=== PATIENT | male | born 1970 | race Caucasian/White ===

== ENCOUNTER 2019-02-28 14:46 | Emergency (ER) | payer BC, OTHER ==
--- NOTE | 2019-02-28 17:00 | RAD REPORT ---
EXAM DESCRIPTION: RAD - Chest Single View - 02/28/2019 3:51 pm CLINICAL HISTORY: Cough and congestion COMPARISON: February 2013 TECHNIQUE: AP portable chest image was obtained 1544 hours . FINDINGS: No peripheral mass or consolidation. Interstitial markings match comparison. Overall detai l is limited by portable technique and large body habitus. Heart and vasculature are normal. No measurable pleural effusion and no pneumothorax. No acute bony abnormality seen. No acute aortic findings suspected. IMPRESSION: No acute cardiopulmonary process. No significant change from comparison.
[2019-02-28 17:21] LABS: Absolute Lymphocytes (CBC) 1.6 K/uL (0.7-4.9); Hematocrit 44.2 % (39.6-49.0); RBC Red Blood Cell Count 4.63 M/uL (4.33-5.43)
--- NOTE | 2019-02-28 17:28 | RAD REPORT ---
EXAM DESCRIPTION: US - Extrem Venous W Compress Sarthak - 02/28/2019 4:45 pm CLINICAL HISTORY: Left greater than right leg pain and swelling COMPARISON: None. TECHNIQUE: Real-time sonographic evaluation of the bilateral lower extremity common femoral, superfi cial femoral, popliteal and posterior tibial veins was performed. FINDINGS: Normal compressibility, flow augmentation, phasic flow and spontaneous flow are identified in the left and right lower extremity common femoral, superficial femoral, popliteal and posterior t ibial veins. No intraluminal filling defects seen. Suspected small popliteal fossa cyst on the right. Left calf area of pain shows no hematoma, mass or focal abnormality. IMPRESSION: No DVT in either lower extremity.
[2019-02-28 17:31] LABS: Protime INR 1.05
[2019-02-28 17:50] LABS: ALT/SGPT 31 U/L (12-78); AST/SGOT 19 U/L (15-37); Albumin 3.9 g/dL (3.4-5.0); Alkaline Phosphatase 87 U/L (45-117); BUN Blood Urea Nitrogen 15 mg/dL (7-18); Bicarbonate 29 mmol/L (21-32); Bilirubin Direct 0.2 mg/dL (0-0.2); Bilirubin Total 0.8 mg/dL (0.2-1.0); Glucose Level 92 mg/dL (74-106); Magnesium 2.2 mg/dL (1.8-2.4); NT PRO-BNP 153 pg/mL (<125); Protein, Total 7.7 g/dL (6.4-8.2); Sodium Level 141 mmol/L (136-145); Troponin (Emerg Dept Use Only) < 0.02 ng/mL (0.0-0.045)
--- NOTE | 2019-02-28 17:58 | ER ---
Nurse's Notes [facility] Name: Devin Loyd IV Age: 48 yrs Sex: Male : 1970 Arrival Date: 02/28/2019 Time: 14:50 Bed 15 Private MD: None, None Diagnosis: Acute upper respiratory infection, unspecified;Essential (primary) hypertension Presentation: 02/28 15:02 Presenting complaint: Patient states: Productive cough with yellow sputum, and sinus hb congestion x 5 days. Denies fever. Transition of care: patient was not received from another setting of care. Onset of symptoms was February 24, 2019. Risk Assessment: Do you want to hurt yourself or someone else? Patient reports no desire to harm self or others. Care prior to arrival: None. 15:02 Method Of Arrival: Ambulatory hb 15:02 Acuity: FREDI 3 hb 17:27 Initial Sepsis Screen: Does the patient meet any 2 criteria? No. Patient's initial ph sepsis screen is negative. Does the patient have a suspected source of infection? No. Patient's initial sepsis screen is negative. Historical: - Allergies: 15:07 No Known Allergies; hb - Home Meds: 15:07 None [Active]; hb - PMHx: 15:07 Kidney stones; hb - PSHx: 15:07 Kidney stents; hb - Immunization history:: Adult Immunizations up to date. - Social history:: Smoking status: Patient uses tobacco products, chewing tobacco. - Ebola Screening: : No symptoms or risks identified at this time. Screenin:26 Abuse screen: Denies threats or abuse. Denies injuries from another. Nutritional ph screening: No deficits noted. Tuberculosis screening: No symptoms or risk factors identified. Fall Risk None identified. Assessment: 16:00 General: Pt in radiology for CXR and US. ph 17:00 General: Appears in no apparent distress. comfortable, obese, well groomed, Behavior is ph calm, cooperative, appropriate for age, Denies fever, chills. Pain: Denies pain. Neuro: Level of Consciousness is awake, alert, obeys commands, Oriented to person, place, time, situation. Cardiovascular: Denies chest pain, shortness of breath, Capillary refill < 3 seconds in bilateral fingers Patient's skin is warm and dry. Edema is 4+ to left midcalf, left ankle, right midcalf and right ankle. Respiratory: Reports shortness of breath when lying flat at night cough that is productive, Airway is patent Respiratory effort is even, unlabored, Respiratory pattern is regular, symmetrical. GI: No signs and/or symptoms were reported involving the gastrointestinal system. Patient currently denies abdominal pain, diarrhea, nausea, vomiting. Derm: Skin is intact, Skin is pink, warm \T\ dry. Musculoskeletal: Circulation, motion, and sensation intact. Range of motion: intact in all extremities. 18:30 Reassessment: Patient appears in no apparent distress at this time. Patient and/or ph family updated on plan of care and expected duration. Pain level reassessed. Patient is alert, oriented x 3, equal unlabored respirations, skin warm/dry/pink. Pt instructed to follow up w/ PCP, educated on use of BP log and d/c home w/ blood pressure medication. Vital Signs: 15:05 BP 179 / 102; Pulse 88; Resp 20; Temp 98.4; Pulse Ox 96% on R/A; Weight 185.97 kg; hb Height 6 ft. 4 in. (193.04 cm); Pain 2/10; 16:00 ph 17:27 BP 135 / 103; Pulse 74; Resp 20; Pulse Ox 89% on R/A; ph 18:32 BP 147 / 117; Pulse 73; Resp 18; Temp 98.0; Pulse Ox 95% on 3 lpm NC; ph 15:05 Body Mass Index 49.91 (185.97 kg, 193.04 cm) hb 16:00 unable to obtain vitals, pt in radiology ph 17:27 placed on 3L NC, improved to 94% ph ED Course: 14:50 Patient arrived in ED. mr 14:51 None, None is Private Physician. mr 15:05 Triage completed. hb 15:05 Arm band placed on. hb 15:13 Unique Che [facility]-C [facility]. snw 15:13 Mikhail Mohr MD is Attending Physician. snw 15:26 Miguelina Hines, MAHI is Primary Nurse. ph 15:51 XRAY Chest (1 view) In Process Unspecified. EDMS 16:09 US Extremity Venous W Compression Sarthak In Process Unspecified. EDMS 17:00 Inserted saline lock: 22 gauge in right antecubital area, using aseptic technique. ph Blood collected. 17:22 EKG done, by nanotechnology engineering technologist. reviewed by Unique MATA. sm3 17:27 Patient has correct armband on for positive identification. Bed in low position. Call ph light in reach. Side rails up X 1. Pulse ox on. NIBP on. Door closed. Noise minimized. Warm blanket given. Head of bed elevated. 18:20 IV discontinued, intact, bleeding controlled, No redness/swelling at site. Pressure em1 dressing applied. 18:31 No provider procedures requiring assistance completed. ph Administered Medications: 18:29 Drug: Metoprolol 25 mg Route: PO; ph 18:29 Follow up: Response: No adverse reaction; Medication administered at discharge. ph Outcome: 17:57 Discharge ordered by . snw 18:31 Discharged to home ambulatory, with significant other. ph 18:31 Condition: good 18:31 Discharge instructions given to patient, Instructed on discharge instructions, follow up and referral plans. medication usage, Demonstrated understanding of instructions, follow-up care, medications, Prescriptions given X 2. 18:33 Patient left the ED. ph Signatures: Dispatcher [employer] EDMS Unique Che, [employer] EMERGENCY MEDICAL SERVICES COORDINATOR-Csnw Mariah Watson, Bipin em1 Miguelina Hines, RN RN Aretha Munoz RN RN Ana Paula Cary sm3
--- NOTE | 2019-02-28 17:58 | EDPHYS ---
Physician Documentation [facility] Name: Devin Loyd IV Age: 48 yrs Sex: Male : 1970 Arrival Date: 02/28/2019 Time: 14:50 Bed 15 Private MD: None, None ED Physician Mikhail Mohr HPI: 02/28 15:56 This 48 yrs old Male presents to ER via Ambulatory with complaints of High snw Blood Pressure, Congestion. 15:56 The patient has elevated blood pressure and discovered this urgent care. Onset: The snw symptoms/episode began/occurred gradually. Associated signs and symptoms: Pertinent positives: congestion since Wednesday, went to and BP was 200/130's, sent to ED for eval. Severity of symptoms: At its worst the blood pressure was 200 mm Hg. It is unknown whether or not the patient has had similar symptoms in the past. The patient has not recently seen a physician. Historical: - Allergies: 15:07 No Known Allergies; hb - Home Meds: 15:07 None [Active]; hb - PMHx: 15:07 Kidney stones; hb - PSHx: 15:07 Kidney stents; hb - Immunization history:: Adult Immunizations up to date. - Social history:: Smoking status: Patient uses tobacco products, chewing tobacco. - Ebola Screening: : No symptoms or risks identified at this time. ROS: 15:56 Constitutional: Negative for fever, chills, and weight loss, Eyes: Negative for injury, snw pain, redness, and discharge. 15:56 Neck: Negative for injury, pain, and swelling, Cardiovascular: Negative for chest pain, palpitations, and edema, Respiratory: Negative for shortness of breath, cough, wheezing, and pleuritic chest pain, Abdomen/GI: Negative for abdominal pain, nausea, vomiting, diarrhea, and constipation, Back: Negative for injury and pain, : Negative for injury, bleeding, discharge, and swelling, MS/Extremity: Negative for injury and deformity, Skin: Negative for injury, rash, and discoloration, Neuro: Negative for headache, weakness, numbness, tingling, and seizure. 15:56 ENT: Positive for sinus congestion. Exam: 15:41 Eyes: Pupils equal round and reactive to light, extra-ocular motions intact. Lids and snw lashes normal. Conjunctiva and sclera are non-icteric and not injected. Cornea within normal limits. Periorbital areas with no swelling, redness, or edema. 15:41 Neck: Trachea midline, no thyromegaly or masses palpated, and no cervical lymphadenopathy. Supple, full range of motion without nuchal rigidity, or vertebral point tenderness. No Meningismus. Chest/axilla: Normal chest wall appearance and motion. Nontender with no deformity. No lesions are appreciated. Cardiovascular: Regular rate and rhythm with a normal S1 and S2. No gallops, murmurs, or rubs. Normal PMI, no JVD. No pulse deficits. 15:41 Abdomen/GI: Soft, non-tender, with normal bowel sounds. No distension or tympany. No guarding or rebound. No evidence of tenderness throughout. Back: No spinal tenderness. No costovertebral tenderness. Full range of motion. 15:41 Constitutional: The patient appears alert, awake, obese. 15:41 Head/face: mild diaphoresis to forehead. 15:41 ENT: TM's: are normal, Nose: Nasal mucosa: edematous, Mouth: is normal, Voice: is normal. 15:41 Respiratory: the patient does not display signs of respiratory distress, Respirations: shallow respirations, Breath sounds: decreased breath sounds. 15:41 Musculoskeletal/extremity: lower extremity edema, left lower extremity with lymphedema. Sensation intact. 15:41 Skin: Appearance: Color: cyanotic, nailbeds. 15:41 Neuro: Orientation: is normal, Mentation: is normal, Motor: is normal. Vital Signs: 15:05 BP 179 / 102; Pulse 88; Resp 20; Temp 98.4; Pulse Ox 96% on R/A; Weight 185.97 kg; hb Height 6 ft. 4 in. (193.04 cm); Pain 2/10; 16:00 ph 17:27 BP 135 / 103; Pulse 74; Resp 20; Pulse Ox 89% on R/A; ph 18:32 BP 147 / 117; Pulse 73; Resp 18; Temp 98.0; Pulse Ox 95% on 3 lpm NC; ph 15:05 Body Mass Index 49.91 (185.97 kg, 193.04 cm) hb 16:00 unable to obtain vitals, pt in radiology ph 17:27 placed on 3L NC, improved to 94% ph MDM: 15:13 Patient medically screened. snw 18:00 Data reviewed: vital signs, nurses notes. Data interpreted: Pulse oximetry: on room air snw is 90 %. Interpretation: acceptable. Counseling: I had a detailed discussion with the patient and/or guardian regarding: the historical points, exam findings, and any diagnostic results supporting the discharge/admit diagnosis, the presence of at least one elevated blood pressure reading (>120/80) during this emergency department visit, lab results, radiology results, the need for outpatient follow up. Response to treatment: There is no appreciated change of the patient's symptoms at this time. Special discussion: Based on the history and exam findings, there is no indication for further emergent testing or inpatient evaluation. I discussed with the patient/guardian the need to see the primary care provider for further evaluation of the symptoms. I discussed with the patient/guardian the need to see the manager ambulatory for further evaluation of the symptoms. 02/28 15:31 Order name: Basic Metabolic Panel; Complete Time: 17:55 snw 02/28 15:31 Order name: CBC with Diff; Complete Time: 17:27 snw 02/28 15:31 Order name: LFT's; Complete Time: 17:55 snw 02/28 15:31 Order name: Magnesium; Complete Time: 17:55 snw 02/28 15:31 Order name: NT PRO-BNP; Complete Time: 17:55 snw 02/28 15:31 Order name: PT-INR; Complete Time: 17:55 snw 02/28 15:31 Order name: Troponin (emerg Dept Use Only); Complete Time: 17:55 snw 02/28 15:31 Order name: XRAY Chest (1 view); Complete Time: 17:24 snw 02/28 15:31 Order name: EKG; Complete Time: 15:32 snw 02/28 15:31 Order name: Cardiac monitoring; Complete Time: 19:25 snw 02/28 15:31 Order name: EKG - Nurse/Tech; Complete Time: 19:25 snw 02/28 15:31 Order name: US Extremity Venous W Compression Sarthak; Complete Time: 17:44 snw 02/28 15:31 Order name: TSH; Complete Time: 17:55 snw 02/28 15:31 Order name: IV Saline Lock; Complete Time: 19:25 snw 02/28 15:31 Order name: Labs collected and sent; Complete Time: 19:25 snw 02/28 15:31 Order name: O2 Per Protocol; Complete Time: 19:25 snw 02/28 15:31 Order name: O2 Sat Monitoring; Complete Time: 19:25 snw Administered Medications: 18:29 Drug: Metoprolol 25 mg Route: PO; ph 18:29 Follow up: Response: No adverse reaction; Medication administered at discharge. ph Disposition: 21:25 Co-signature as Attending Physician, Mikhail Mohr MD. rn Disposition: 02/28/19 17:57 Discharged to Home. Impression: Acute upper respiratory infection, unspecified, Essential (primary) hypertension. - Condition is Stable. - Discharge Instructions: Hypertension, Cool Mist Vaporizer, Sleep Studies, Lymphedema, How to Take Your Blood Pressure, [id number], DASH Eating Plan, Form - Blood Pressure Record Sheet. - Prescriptions for Metoprolol Tartrate 25 mg Oral Tablet - take 1 tablet by ORAL route 2 times per day with a meal; 20 tablet. - Work release form, Medication Reconciliation Form, Thank You Letter, Antibiotic Education, Prescription Opioid Use form. - Follow up: Emergency Department; When: As needed; Reason: Worsening of condition. Follow up: Private Physician; When: 1 week; Reason: Recheck today's complaints, Continuance of care, Re-evaluation by your physician. Signatures: Dispatcher [employer] EDMS Unique Che, MANAGER ADVANCED-C MANAGER ADVANCED-Csnw Mikhail Mohr MD MD rn Hall, Patricia, RN RN Aretha Cardona RN RN Corrections: (The following items were deleted from the chart) 18:33 17:57 02/28/2019 17:57 Discharged to Home. Impression: Acute upper respiratory ph infection, unspecified; Essential (primary) hypertension. Condition is Stable. Forms are Medication Reconciliation Form, Thank You Letter, Antibiotic Education, Prescription Opioid Use. Follow up: Emergency Department; When: As needed; Reason: Worsening of condition. Follow up: Private Physician; When: 1 week; Reason: Recheck today's complaints, Continuance of care, Re-evaluation by your physician. snw
[2019-02-28] MEDS ORDERED: METOPROLOL TAR 25 MG TAB ONE (18:21)
[2019-02-28 18:59] VITALS: BP 147/117; TEMP 98; O2SAT 95
--- NOTE | 2019-03-01 07:24 | EKG ---
Test Date: 2019-02-28 Test Time: 17:00:52 Crew Director: ANTHONY MEASUREMENT RESULTS: Intervals: Rate: 80 MT: 166 QRSD: 104 QT: 390 QTc: 449 [place]: P: 22 MT: 166 QRS: -17 T: 38 INTERPRETIVE STATEMENTS: Sinus rhythm with premature supraventricular complexes Otherwise normal ECG No previous ECG available for comparison Electronically Signed On 03-01-19 07:23:36 ONLINE JOURNALIST by Shahid Garcia
== END 2019-02-28 18:33 | disposition home or self-care (01) ==
LOC: ER 14:46
DX: I10 Essential (primary) hypertension (principal); J06.9 Acute upper respiratory infection, unspecified; Z72.0 Tobacco use
CPT/HCPCS: 36415; 71045; 80048; 80076; 83735; 83880; 84443; 84484; 85025; 85610; 93005; 93970; 99284

== ENCOUNTER 2023-07-10 07:17 | Inpatient (IN) | payer BC ==
--- OUTSIDE RECORDS SUMMARY | 2023-07-10 07:23 | XMS REPORT | Continuity of Care Document ---
Author Name Unknown Address [address] [facility] [address] [place] [address] [facility] thconnect Address [address] [facility] [address] [place] [address] Care Team Providers Care Senior Sales Manager Name Role Phone JAYLENE SEGURA Primary Care Physician Mami JAYLENE Earl Attending Clinician Jaylene Espinoza MD Attending Clinician + [phone] [facility] Sleep Lab Attending Clinician UnavailZoraida Mccabe MD Attending Clinician ZORAIDA NIXON Attending Clinician Unavaila ZORAIDA Carcamo Attending Clinician Unavaila glory Doctor Unassigned, [place] Attending Clinician U navailable BIRDIE GOODMAN Attending Clinician Unavailable Birdie Goodman DO Attending Clinician [phone] Renee Rivera Attending Clinician [phone] RENEE MICHELLE Attending Clinician Unavailable Rory CHAUDHARI, [facility] Attending Clinician + [phone] Kaelyn VELAZQUEZ Attending Clinician Unavailable Kaelyn Nolasco Attending Clinician [phone] Bucky Raymond PTA Attending Clinician Unavail able Cesar Luo MD Attending Clinician [phone] Rola Kitchen PT Attending Clinician Un available CESAR LUO Attending Clinician Unavailabl e Lab, Ang - Db Attending Clinician Unavailable NESSA FELTON Attending Clinician Unavailmanpreet Brown RN, Balta Moss Attending Clinician Unavail able Katlin Rosenthal MD Attending Clinician MANNY GONZALEZ Attending Clinician UnavailManny Cruz Attending Clinician [phone] MARIA SANTIAGO Attending Clinician Unavailable BIRDIE GOODMAN Admitting Clinician Unavailable Kaelyn VELAZQUEZ Admitting Clinician Unavailable Katlin Rosenthal MD Admitting Clinician [phone] MANNY GONZALEZ Admitting Clinician UnavailMARIA Bates Admitting Clinician Unavailable Payers Payer Name Policy Type Policy Number Effective Date Expirati on Date Source [facility] [id number] 2017 00:00:00 Problems Condition Name Condition Details Condition Category Status Onset Date Resolution Date Last Treatment Date Treating Clinician Comments Source Snoring Snoring Disease Active 08-04 00:00: 00 [facility] Class 3 drug-induc ed obesity with serious comorbidit y and body mass index (BMI) of 50.0 to 59.9 in adult Class 3 drug-induc ed obesity with serious comorbidit y and body mass index (BMI) of 50.0 to 59.9 in adult Disease Active 08-04 00:00: 00 [facility] Acute cough Acute cough Disease Active 08-04 00:00: 00 [facility] Viral infection Viral infection Disease Active 08-04 00:00: 00 [facility] Urinary incontinen ce, nocturnal enuresis Urinary incontinen ce, nocturnal enuresis Disease Active 08-04 00:00: 00 [facility] PVC (premature ventricula r contractio n) PVC (premature ventricula r contractio n) Disease Active 11-12 00:00: 00 [facility] PVC (premature ventricula r contractio n) PVC (premature ventricula r contractio n) Disease Active 11-12 00:00: 00 [facility] Hypokalemi a Hypokalemi a Disease Active 8-03 00:00: 00 [facility] Cellulitis of left leg Cellulitis of left leg Disease Active 8-02 00:00: 00 [facility] Chronic diastolic congestive heart failure Chronic diastolic congestive heart failure Disease Active 10-09 00:00: 00 [facility] Cellulitis Cellulitis Disease Active 10-05 00:00: 00 [facility] Essential hypertensi on Essential hypertensi on Disease Active 10-05 00:00: 00 [facility] Dyslipidem ia Dyslipidem ia Disease Active 10-05 00:00: 00 [facility] Stage 3 chronic kidney disease Stage 3 chronic kidney disease Disease Active 10-05 00:00: 00 [facility] History of DVT (deep vein thrombosis ) History of DVT (deep vein thrombosis ) Disease Active 10-05 00:00: 00 [facility] Elevated troponin I level Elevated troponin I level Disease Active 10-05 00:00: 00 [facility] DVT (deep venous thrombosis ) DVT (deep venous thrombosis ) Disease Active 2018-04 00:00: 00 [facility] TIERRA (acute kidney injury) TIERRA (acute kidney injury) Disease Active 2018-04 00:00: 00 [facility] Cellulitis of left lower extremity Cellulitis of left lower extremity Disease Active 2018-04 00:00: 00 [facility] Pneumonia Pneumonia Disease Active 2018-04 00:00: 00 [facility] Morbid obesity with body mass index of 50 or higher Morbid obesity with body mass index of 50 or higher Disease Active 2018-04 00:00: 00 [facility] Allergies, Adverse Reactions, Alerts Allergy Name Allergy Type Status Severity Reaction(s) Onset Date Inactive Date Treating Clinician Comments Source NO KNOWN ALLERGIE S Drug Class Active [facility] Social History Social Habit Start Date Stop Date Quantity Comments Source Gender identity [facility] of Social function 2023-05-18 00:00:00 2023-05-18 00:00:00 [facility] Alcohol intake 2023-05-04 00:00:00 2023-05-04 00:00:00 Ex-drinker (finding) [facility] Exposure to SARS-CoV-2 (event) 2022-08-08 00:00:00 2022-08-18 09:27:00 Not sure [facility] Cigarettes smoked current (pack per day) - Reported 2022-08-04 00:00:00 2022-08-04 00:00:00 [facility] Cigarette pack-years 2022-08-04 00:00:00 2022-08-04 00:00:00 [facility] Tobacco use and exposure 2022-08-04 00:00:00 2022-08-04 00:00:00 Former smokeless tobacco user [facility] History SDOH Food Worry 2019-03-09 00:00:00 2019-03-09 00:00:00 1 [facility] History SDOH Food Scarcity 2019-03-09 00:00:00 2019-03-09 00:00:00 1 [facility] History SDOH Transport Med 2019-03-09 00:00:00 2019-03-09 00:00:00 2 [facility] History SDOH Transport Non-Med 2019-03-09 00:00:00 2019-03-09 00:00:00 2 [facility] History of tobacco use 2019-03-06 00:00:00 Chews Tobacco [facility] Sex Assigned At 1970 00:00:00 1970 00:00:00 [facility] Smoking Status Start Date Stop Date Source Ex-smoker 2022-08-04 00:00:00 2022-08-04 [facility] Ordered Medication Name Filled Medication Name Start Date Stop Date Current Medication? Ordering Clinician Indication Dosage Frequency Signature (SIG) Comments Components Source ELIQUIS 5 mg tablet - 00:00: 00 Yes [id number] TAKE 1 TABLET BY MOUTH IN THE MORNING AND EVENING TO PREVENT RECURRENCE OF A CLOT IN A DEEP VEIN [facility] ELIQUIS 5 mg tablet 4-0 2-21 00:00: 00 Yes [id number] TAKE 1 TABLET BY MOUTH IN THE MORNING AND EVENING TO PREVENT RECURRENCE OF A CLOT IN A DEEP VEIN [facility] ELIQUIS 5 mg tablet 4-0 1-15 00:00: 00 Yes [id number] [id number] TAKE 1 TABLET BY MOUTH IN THE MORNING AND EVENING TO PREVENT RECURRENCE OF A CLOT IN A DEEP VEIN [facility] ELIQUIS 5 mg tablet 4-0 1-15 00:00: 00 Yes [id number] [id number] TAKE 1 TABLET BY MOUTH IN THE MORNING AND EVENING TO PREVENT RECURRENCE OF A CLOT IN A DEEP VEIN [facility] ELIQUIS 5 mg tablet 4-0 1-15 00:00: 00 Yes [id number] [id number] TAKE 1 TABLET BY MOUTH IN THE MORNING AND EVENING TO PREVENT RECURRENCE OF A CLOT IN A DEEP VEIN [facility] ELIQUIS 5 mg tablet 4-0 1-15 00:00: 00 Yes [id number] 9108 TAKE 1 TABLET BY MOUTH IN THE MORNING AND EVENING TO PREVENT RECURRENCE OF A CLOT IN A DEEP VEIN [facility] ELIQUIS 5 mg tablet 4-0 1-15 00:00: 00 Yes [id number] 9108 TAKE 1 TABLET BY MOUTH IN THE MORNING AND EVENING TO PREVENT RECURRENCE OF A CLOT IN A DEEP VEIN [facility] ELIQUIS 5 mg tablet 4-0 1-15 00:00: 00 06-02 00:00 :00 No [id number] 9108 TAKE 1 TABLET BY MOUTH IN THE MORNING AND EVENING TO PREVENT RECURRENCE OF A CLOT IN A DEEP VEIN [facility] CARVEDILOL 25 mg tablet 4-0 1-02 00:00: 00 Yes [id number] TAKE 1 TABLET BY MOUTH IN THE MORNING AND IN THE EVENING WITH MEALS [facility] CARVEDILOL 25 mg tablet 2024-0 1-02 00:00: 00 Yes [id number] TAKE 1 TABLET BY MOUTH IN THE MORNING AND IN THE EVENING WITH MEALS [facility] CARVEDILOL 25 mg tablet 2024-0 1-02 00:00: 00 Yes [id number] TAKE 1 TABLET BY MOUTH IN THE MORNING AND IN THE EVENING WITH MEALS [facility] CARVEDILOL 25 mg tablet 4-0 04-13 00:00: 00 Yes [id number] TAKE 1 TABLET BY MOUTH IN THE MORNING AND IN THE EVENING WITH MEALS [facility] CARVEDILOL 25 mg tablet 4-0 04-13 00:00: 00 Yes [id number] TAKE 1 TABLET BY MOUTH IN THE MORNING AND IN THE EVENING WITH MEALS [facility] CARVEDILOL 25 mg tablet 4-0 04-13 00:00: 00 Yes [id number] TAKE 1 TABLET BY MOUTH IN THE MORNING AND IN THE EVENING WITH MEALS [facility] CARVEDILOL 25 mg tablet 2023-0 04-13 00:00: 00 Yes [id number] TAKE 1 TABLET BY MOUTH IN THE MORNING AND IN THE EVENING WITH MEALS [facility] CARVEDILOL 25 mg tablet 2023-0 04-13 00:00: 00 Yes [id number] TAKE 1 TABLET BY MOUTH IN THE MORNING AND IN THE EVENING WITH MEALS [facility] CARVEDILOL 25 mg tablet 2023-0 04-13 00:00: 00 Yes [id number] TAKE 1 TABLET BY MOUTH IN THE MORNING AND IN THE EVENING WITH MEALS [facility] CARVEDILOL 25 mg tablet 2023-0 04-13 00:00: 00 Yes [id number] TAKE 1 TABLET BY MOUTH IN THE MORNING AND IN THE EVENING WITH MEALS [facility] CARVEDILOL 25 mg tablet 2023-0 04-13 00:00: 00 Yes [id number] TAKE 1 TABLET BY MOUTH IN THE MORNING AND IN THE EVENING WITH MEALS [facility] ELIQUIS 5 mg tablet 2022-04 00:00: 00 Yes [id number] 9108 TAKE 1 TABLET BY MOUTH IN THE MORNING AND EVENING TO PREVENT RECURRENCE OF A CLOT IN A DEEP VEIN [facility] ELIQUIS 5 mg tablet 2022-04 00:00: 00 Yes [id number] 9108 TAKE 1 TABLET BY MOUTH IN THE MORNING AND EVENING TO PREVENT RECURRENCE OF A CLOT IN A DEEP VEIN [facility] ELIQUIS 5 mg tablet 2022-04 00:00: 00 04-26 00:00 :00 No [id number] 9108 TAKE 1 TABLET BY MOUTH IN THE MORNING AND EVENING TO PREVENT RECURRENCE OF A CLOT IN A DEEP VEIN [facility] ELIQUIS 5 mg tablet 2022-04 00:00: 00 Yes [id number] 9108 TAKE 1 TABLET BY MOUTH IN THE MORNING AND EVENING TO PREVENT RECURRENCE OF A CLOT IN A DEEP VEIN [facility] ELIQUIS 5 mg tablet 2022-04 00:00: 00 03-16 00:00 :00 No [id number] 9108 TAKE 1 TABLET BY MOUTH IN THE MORNING AND EVENING TO PREVENT RECURRENCE OF A CLOT IN A DEEP VEIN [facility] cefTRIAXone (ROCEPHIN) 350 mg/mL in Lidocaine 1 % injection 500 mg 01-04 03:30: 00 01-04 02:43 :00 No 500mg 500 mg, Intramuscu lar, ONCE, 1 dose, On 01/03/23 at 2230, KACY
Re ason for Anti-Infec tive: Empiric Therapy for Suspected Infection< br>Empiric Therapy Site: Skin / Soft tissue
Duration of therapy: 72 hours [facility] cephALEXin (KEFLEX) 500 mg capsule 01-03 00:00: 00 01-11 04:59 :00 No [id number] 500mg Take 1 capsule by mouth in the morning and 1 capsule at noon and 1 capsule in the evening. Do all this for 7 days. [facility] sulfamethox azole-trime thoprim 800-160 mg per tablet 01-03 00:00: 00 01-11 04:59 :00 No [id number] 1{tbl} Take 1 tablet by mouth in the morning and 1 tablet in the evening. Do all this for 7 days. [facility] ELIQUIS 5 mg tablet 12-22 00:00: 00 Yes [id number] TAKE 1 TABLET BY MOUTH IN THE MORNING AND EVENING TO PREVENT RECURRENCE OF A CLOT IN A DEEP VEIN [facility] ELIQUIS 5 mg tablet 12-22 00:00: 00 Yes [id number] 9108 TAKE 1 TABLET BY MOUTH IN THE MORNING AND EVENING TO PREVENT RECURRENCE OF A CLOT IN A DEEP VEIN [facility] ELIQUIS 5 mg tablet 2022-0 9-12 00:00: 00 02-03 00:00 :00 No [id number] 9108 TAKE 1 TABLET BY MOUTH IN THE MORNING AND EVENING TO PREVENT RECURRENCE OF A CLOT IN A DEEP VEIN [facility] ELIQUIS 5 mg tablet 2022-0 8- 00:00: 00 Yes [id number] 9108 TAKE 1 TABLET BY MOUTH IN THE MORNING AND EVENING TO PREVENT RECURRENCE OF A CLOT IN A DEEP VEIN [facility] ELIQUIS 5 mg tablet 2022-0 8- 00:00: 00 12-22 00:00 :00 No [id number] 9108 TAKE 1 TABLET BY MOUTH IN THE MORNING AND EVENING TO PREVENT RECURRENCE OF A CLOT IN A DEEP VEIN [facility] CARVEDILOL 25 mg tablet 2022-0 - 00:00: 00 Yes TAKE 1 TABLET BY MOUTH IN THE MORNING AND IN THE EVENING WITH MEALS [facility] CARVEDILOL 25 mg tablet 2022-0 7-06 00:00: 00 Yes TAKE 1 TABLET BY MOUTH IN THE MORNING AND IN THE EVENING WITH MEALS [facility] CARVEDILOL 25 mg tablet 2022-0 10-15 00:00: 00 Yes TAKE 1 TABLET BY MOUTH IN THE MORNING AND IN THE EVENING WITH MEALS [facility] CARVEDILOL 25 mg tablet 2022-0 - 00:00: 00 Yes TAKE 1 TABLET BY MOUTH IN THE MORNING AND IN THE EVENING WITH MEALS [facility] CARVEDILOL 25 mg tablet 2022-0 7-06 00:00: 00 Yes TAKE 1 TABLET BY MOUTH IN THE MORNING AND IN THE EVENING WITH MEALS [facility] CARVEDILOL 25 mg tablet 2022-0 7-06 00:00: 00 Yes TAKE 1 TABLET BY MOUTH IN THE MORNING AND IN THE EVENING WITH MEALS [facility] CARVEDILOL 25 mg tablet 2022-0 7-06 00:00: 00 04-13 00:00 :00 No TAKE 1 TABLET BY MOUTH IN THE MORNING AND IN THE EVENING WITH MEALS [facility] apixaban (ELIQUIS) 5 mg tablet 2022-0 05 00:00: 00 Yes [id number] 5mg Take 1 tablet by mouth in the morning and 1 tablet in the evening. Indication s: treatment to prevent recurrence of a clot in a deep vein [facility] apixaban (ELIQUIS) 5 mg tablet 2022-0 7 00:00: 00 Yes [id number] 5mg Take 1 tablet by mouth in the morning and 1 tablet in the evening. Indication s: treatment to prevent recurrence of a clot in a deep vein [facility] apixaban (ELIQUIS) 5 mg tablet 2022-0 10-14 00:00: 00 11-18 00:00 :00 No [id number] 5mg Take 1 tablet by mouth in the morning and 1 tablet in the evening. Indication s: treatment to prevent recurrence of a clot in a deep vein [facility] LORATADINE 10 mg tablet 2022-0 09-17 00:00: 00 Yes [id number] TAKE 1 TABLET BY MOUTH EVERY DAY IN THE MORNING [facility] LORATADINE 10 mg tablet 2022-0 09-17 00:00: 00 Yes [id number] TAKE 1 TABLET BY MOUTH EVERY DAY IN THE MORNING [facility] LORATADINE 10 mg tablet 3-0 09-17 00:00: 00 Yes [id number] TAKE 1 TABLET BY MOUTH EVERY DAY IN THE MORNING [facility] LORATADINE 10 mg tablet 3-0 09-17 00:00: 00 Yes [id number] TAKE 1 TABLET BY MOUTH EVERY DAY IN THE MORNING [facility] LORATADINE 10 mg tablet 3-0 09-17 00:00: 00 Yes [id number] TAKE 1 TABLET BY MOUTH EVERY DAY IN THE MORNING [facility] LORATADINE 10 mg tablet 3-0 09-17 00:00: 00 Yes [id number] TAKE 1 TABLET BY MOUTH EVERY DAY IN THE MORNING [facility] LORATADINE 10 mg tablet 2022-0 6- 00:00: 00 Yes [id number] TAKE 1 TABLET BY MOUTH EVERY DAY IN THE MORNING [facility] LORATADINE 10 mg tablet 3-0 6- 00:00: 00 Yes [id number] TAKE 1 TABLET BY MOUTH EVERY DAY IN THE MORNING [facility] LORATADINE 10 mg tablet 2022-0 09-17 00:00: 00 Yes [id number] TAKE 1 TABLET BY MOUTH EVERY DAY IN THE MORNING [facility] LORATADINE 10 mg tablet 2022-0 09-17 00:00: 00 Yes [id number] TAKE 1 TABLET BY MOUTH EVERY DAY IN THE MORNING [facility] LORATADINE 10 mg tablet 2022-0 09-17 00:00: 00 Yes [id number] TAKE 1 TABLET BY MOUTH EVERY DAY IN THE MORNING [facility] LORATADINE 10 mg tablet 2022-0 09-17 00:00: 00 Yes [id number] TAKE 1 TABLET BY MOUTH EVERY DAY IN THE MORNING [facility] LORATADINE 10 mg tablet 2022-0 09-17 00:00: 00 Yes [id number] TAKE 1 TABLET BY MOUTH EVERY DAY IN THE MORNING [facility] LORATADINE 10 mg tablet 2022-0 09-17 00:00: 00 Yes [id number] TAKE 1 TABLET BY MOUTH EVERY DAY IN THE MORNING [facility] LORATADINE 10 mg tablet 2022-0 09-17 00:00: 00 Yes [id number] TAKE 1 TABLET BY MOUTH EVERY DAY IN THE MORNING [facility] LORATADINE 10 mg tablet 2022-0 09-17 00:00: 00 Yes [id number] TAKE 1 TABLET BY MOUTH EVERY DAY IN THE MORNING [facility] LORATADINE 10 mg tablet 2022-0 09-17 00:00: 00 Yes [id number] TAKE 1 TABLET BY MOUTH EVERY DAY IN THE MORNING [facility] LORATADINE 10 mg tablet 2022-0 09-17 00:00: 00 Yes [id number] TAKE 1 TABLET BY MOUTH EVERY DAY IN THE MORNING [facility] LORATADINE 10 mg tablet 2022-0 09-17 00:00: 00 Yes [id number] TAKE 1 TABLET BY MOUTH EVERY DAY IN THE MORNING [facility] LORATADINE 10 mg tablet 2022-0 09-06 00:00: 00 Yes [id number] TAKE 1 TABLET BY MOUTH EVERY DAY IN THE MORNING [facility] LORATADINE 10 mg tablet 2022-0 09-06 00:00: 00 09-17 00:00 :00 No [id number] TAKE 1 TABLET BY MOUTH EVERY DAY IN THE MORNING [facility] amoxicillin 875 mg tablet 2022-0 08-18 00:00: 00 Yes [id number] 875mg Take 1 tablet by mouth in the morning and 1 tablet in the evening. [facility] amoxicillin 875 mg tablet 2022-0 08-18 00:00: 00 Yes [id number] 875mg Take 1 tablet by mouth in the morning and 1 tablet in the evening. [facility] amoxicillin 875 mg tablet 2022-0 08-18 00:00: 00 Yes [id number] 875mg Take 1 tablet by mouth in the morning and 1 tablet in the evening. [facility] amoxicillin 875 mg tablet 2022-0 08-18 00:00: 00 Yes [id number] 875mg Take 1 tablet by mouth in the morning and 1 tablet in the evening. [facility] amoxicillin 875 mg tablet 2022-0 08-18 00:00: 00 Yes [id number] 875mg Take 1 tablet by mouth in the morning and 1 tablet in the evening. [facility] amoxicillin 875 mg tablet 2022-0 08-18 00:00: 00 Yes [id number] 875mg Take 1 tablet by mouth in the morning and 1 tablet in the evening. [facility] amoxicillin 875 mg tablet 2022-0 08-18 00:00: 00 Yes [id number] 875mg Take 1 tablet by mouth in the morning and 1 tablet in the evening. [facility] amoxicillin 875 mg tablet 2022-0 08-18 00:00: 00 Yes [id number] 875mg Take 1 tablet by mouth in the morning and 1 tablet in the evening. [facility] amoxicillin 875 mg tablet 2022-0 08-18 00:00: 00 Yes [id number] 875mg Take 1 tablet by mouth in the morning and 1 tablet in the evening. [facility] amoxicillin 875 mg tablet 3-0 - 00:00: 00 Yes [id number] 875mg Take 1 tablet by mouth in the morning and 1 tablet in the evening. [facility] amoxicillin 875 mg tablet 2022-0 08-18 00:00: 00 Yes [id number] 875mg Take 1 tablet by mouth in the morning and 1 tablet in the evening. [facility] amoxicillin 875 mg tablet 2022-0 08-18 00:00: 00 Yes [id number] 875mg Take 1 tablet by mouth in the morning and 1 tablet in the evening. [facility] amoxicillin 875 mg tablet 2022-0 08-18 00:00: 00 Yes [id number] 875mg Take 1 tablet by mouth in the morning and 1 tablet in the evening. [facility] amoxicillin 875 mg tablet 2022-0 08-18 00:00: 00 Yes [id number] 875mg Take 1 tablet by mouth in the morning and 1 tablet in the evening. [facility] amoxicillin 875 mg tablet 2022-0 08-18 00:00: 00 Yes [id number] 875mg Take 1 tablet by mouth in the morning and 1 tablet in the evening. [facility] amoxicillin 875 mg tablet 2022-0 08-18 00:00: 00 Yes [id number] 875mg Take 1 tablet by mouth in the morning and 1 tablet in the evening. [facility] amoxicillin 875 mg tablet 2022-0 08-18 00:00: 00 Yes [id number] 875mg Take 1 tablet by mouth in the morning and 1 tablet in the evening. [facility] amoxicillin 875 mg tablet 2022-0 08-18 00:00: 00 05-18 00:00 :00 No [id number] 875mg Take 1 tablet by mouth in the morning and 1 tablet in the evening. [facility] amoxicillin 875 mg tablet 2022-0 08-18 00:00: 00 05-18 00:00 :00 No [id number] 875mg Take 1 tablet by mouth in the morning and 1 tablet in the evening. [facility] ELIQUIS 5 mg tablet 3-0 08-16 00:00: 00 Yes [id number] TAKE 1 TABLET BY MOUTH TWICE DAILY [facility] ELIQUIS 5 mg tablet 2022-0 08-16 00:00: 00 Yes [id number] 9108 TAKE 1 TABLET BY MOUTH TWICE DAILY [facility] ELIQUIS 5 mg tablet 2022-0 07 00:00: 00 Yes [id number] [id number] TAKE 1 TABLET BY MOUTH TWICE DAILY [facility] ELIQUIS 5 mg tablet 2022-0 -07 00:00: 00 Yes [id number] [id number] TAKE 1 TABLET BY MOUTH TWICE DAILY [facility] ELIQUIS 5 mg tablet 2022-0 07 00:00: 00 Yes [id number] [id number] TAKE 1 TABLET BY MOUTH TWICE DAILY [facility] ELIQUIS 5 mg tablet 2022-0 07 00:00: 00 Yes [id number] 9108 TAKE 1 TABLET BY MOUTH TWICE DAILY [facility] ELIQUIS 5 mg tablet 2022-0 07 00:00: 00 Yes [id number] 9108 TAKE 1 TABLET BY MOUTH TWICE DAILY [facility] ELIQUIS 5 mg tablet 2022-0 07 00:00: 00 Yes [id number] TAKE 1 TABLET BY MOUTH TWICE DAILY [facility] ELIQUIS 5 mg tablet 2022-0 07 00:00: 00 - 00:00 :00 No [id number] 9108 TAKE 1 TABLET BY MOUTH TWICE DAILY [facility] loratadine (CLARITIN) 10 mg tablet 2022-0 25 00:00: 00 Yes [id number] 10mg Take 1 tablet by mouth in the morning. [facility] loratadine (CLARITIN) 10 mg tablet 2022-0 -25 00:00: 00 Yes [id number] 10mg Take 1 tablet by mouth in the morning. [facility] loratadine (CLARITIN) 10 mg tablet 3-0 4-25 00:00: 00 Yes [id number] 10mg Take 1 tablet by mouth in the morning. [facility] loratadine (CLARITIN) 10 mg tablet 3-0 4-25 00:00: 00 Yes [id number] 10mg Take 1 tablet by mouth in the morning. [facility] loratadine (CLARITIN) 10 mg tablet 3-0 4-25 00:00: 00 Yes [id number] 10mg Take 1 tablet by mouth in the morning. [facility] loratadine (CLARITIN) 10 mg tablet 0 25 00:00: 00 Yes [id number] 10mg Take 1 tablet by mouth in the morning. [facility] loratadine (CLARITIN) 10 mg tablet 2022-0 25 00:00: 00 Yes [id number] 10mg Take 1 tablet by mouth in the morning. [facility] loratadine (CLARITIN) 10 mg tablet 0 25 00:00: 00 Yes [id number] 10mg Take 1 tablet by mouth in the morning. [facility] loratadine (CLARITIN) 10 mg tablet 0 08-04 00:00: 00 09-06 00:00 :00 No [id number] 10mg Take 1 tablet by mouth in the morning. [facility] benzonatate 200 mg capsule 0 08-04 00:00: 00 08-12 04:59 :00 No [id number] 200mg Take 1 capsule by mouth 3 (three) times daily as needed for Cough for up to 7 days. [facility] benzonatate 200 mg capsule 0 08-04 00:00: 00 08-12 04:59 :00 No [id number] 200mg Take 1 capsule by mouth 3 (three) times daily as needed for Cough for up to 7 days. [facility] benzonatate 200 mg capsule 0 08-04 00:00: 00 08-12 04:59 :00 No [id number] 200mg Take 1 capsule by mouth 3 (three) times daily as needed for Cough for up to 7 days. [facility] apixaban (ELIQUIS) 5 mg tablet 2022-0 07-17 00:00: 00 Yes [id number] 9108 TAKE 1 TABLET BY MOUTH TWICE DAILY [facility] [facility] apixaban (ELIQUIS[facility] 5 mg tablet 2022-0 07-17 00:00: 00 Yes [id number] TAKE 1 TABLET BY MOUTH TWICE DAILY [facility] apixaban (ELIQUIS) 5 mg tablet 0 07-17 00:00: 00 Yes [id number] TAKE 1 TABLET BY MOUTH TWICE DAILY [facility] apixaban (ELIQUIS) 5 mg tablet 07-17 00:00: 00 Yes [id number] TAKE 1 TABLET BY MOUTH TWICE DAILY [facility] apixaban (ELIQUIS) 5 mg tablet 07-17 00:00: 00 08-16 22:43 :58 No [id number] TAKE 1 TABLET BY MOUTH TWICE DAILY [facility] ELIQUIS 5 mg tablet 2021-04 00:00: 00 Yes [id number] TAKE 1 TABLET BY MOUTH TWICE DAILY [facility] ELIQUIS 5 mg tablet 2021-04 00:00: 00 Yes [id number] TAKE 1 TABLET BY MOUTH TWICE DAILY [facility] ELIQUIS 5 mg tablet 2021-04 00:00: 00 07-17 00:00 :00 No [id number] TAKE 1 TABLET BY MOUTH TWICE DAILY [facility] carvediloL 25 mg tablet 2021-04 00:00: 00 Yes 25mg Take 1 tablet by mouth in the morning and 1 tablet in the evening. Take with meals. [facility] carvediloL 25 mg tablet 2021-04 00:00: 00 Yes 25mg Take 1 tablet by mouth in the morning and 1 tablet in the evening. Take with meals. [facility] carvediloL 25 mg tablet 2021-04 00:00: 00 Yes 25mg Take 1 tablet by mouth in the morning and 1 tablet in the evening. Take with meals. [facility] carvediloL 25 mg tablet 2021-04 00:00: 00 Yes 25mg Take 1 tablet by mouth in the morning and 1 tablet in the evening. Take with meals. [facility] carvediloL 25 mg tablet 2021-04 00:00: 00 Yes 25mg Take 1 tablet by mouth in the morning and 1 tablet in the evening. Take with meals. [facility] carvediloL 25 mg tablet 2021-04 00:00: 00 Yes 25mg Take 1 tablet by mouth in the morning and 1 tablet in the evening. Take with meals. [facility] carvediloL 25 mg tablet 2021-04 00:00: 00 Yes 25mg Take 1 tablet by mouth in the morning and 1 tablet in the evening. Take with meals. [facility] carvediloL 25 mg tablet 2021-04 00:00: 00 Yes 25mg Take 1 tablet by mouth in the morning and 1 tablet in the evening. Take with meals. [facility] carvediloL 25 mg tablet 2021 04-22 00:00: 00 Yes 25mg Take 1 tablet by mouth in the morning and 1 tablet in the evening. Take with meals. [facility] carvediloL 25 mg tablet 2021 04-22 00:00: 00 Yes 25mg Take 1 tablet by mouth in the morning and 1 tablet in the evening. Take with meals. [facility] carvediloL 25 mg tablet 2021-04 00:00: 00 Yes 25mg Take 1 tablet by mouth in the morning and 1 tablet in the evening. Take with meals. [facility] carvediloL 25 mg tablet 2021-04 00:00: 00 Yes 25mg Take 1 tablet by mouth in the morning and 1 tablet in the evening. Take with meals. [facility] carvediloL 25 mg tablet [id number] 00:00: 00 Yes 25mg Take 1 tablet by mouth in the morning and 1 tablet in the evening. Take with meals. [facility] carvediloL 25 mg tablet [id number] 00:00: 00 Yes 25mg Take 1 tablet by mouth in the morning and 1 tablet in the evening. Take with meals. [facility] carvediloL 25 mg tablet 2021 04-22 00:00: 00 Yes 25mg Take 1 tablet by mouth in the morning and 1 tablet in the evening. Take with meals. [facility] carvediloL 25 mg tablet 2021 04-22 00:00: 00 Yes 25mg Take 1 tablet by mouth in the morning and 1 tablet in the evening. Take with meals. [facility] carvediloL 25 mg tablet 2021-04 1- 00:00: 00 10-15 00:00 :00 No 25mg Take 1 tablet by mouth in the morning and 1 tablet in the evening. Take with meals. [facility] ELIQUIS 5 mg tablet 2021-04 0-10 00:00: 00 Yes [id number] TAKE 1 TABLET BY MOUTH TWICE DAILY [facility] ELIQUIS 5 mg tablet 1 0-10 00:00: 00 Yes [id number] TAKE 1 TABLET BY MOUTH TWICE DAILY [facility] ELIQUIS 5 mg tablet 2021-04 0-10 00:00: 00 Yes [id number] TAKE 1 TABLET BY MOUTH TWICE DAILY [facility] ELIQUIS 5 mg tablet 2021-04 0-10 00:00: 00 04-07 00:00 :00 No [id number] TAKE 1 TABLET BY MOUTH TWICE DAILY [facility] FUROSEMIDE 80 mg tablet 2021-0 8-15 00:00: 00 Yes [id number] TAKE 1 TABLET BY MOUTH EVERY MORNING AND EVERY EVENING [facility] FUROSEMIDE 80 mg tablet 2-0 8-15 00:00: 00 Yes [id number] TAKE 1 TABLET BY MOUTH EVERY MORNING AND EVERY EVENING [facility] FUROSEMIDE 80 mg tablet 2-0 8-15 00:00: 00 Yes [id number] TAKE 1 TABLET BY MOUTH EVERY MORNING AND EVERY EVENING [facility] FUROSEMIDE 80 mg tablet 2-0 8-15 00:00: 00 Yes [id number] TAKE 1 TABLET BY MOUTH EVERY MORNING AND EVERY EVENING [facility] FUROSEMIDE 80 mg tablet 2-0 8-15 00:00: 00 Yes [id number] TAKE 1 TABLET BY MOUTH EVERY MORNING AND EVERY EVENING [facility] FUROSEMIDE 80 mg tablet 2-0 8-15 00:00: 00 Yes [id number] TAKE 1 TABLET BY MOUTH EVERY MORNING AND EVERY EVENING [facility] FUROSEMIDE 80 mg tablet 2-0 8-15 00:00: 00 Yes [id number] TAKE 1 TABLET BY MOUTH EVERY MORNING AND EVERY EVENING [facility] FUROSEMIDE 80 mg tablet 2-0 8-15 00:00: 00 Yes [id number] TAKE 1 TABLET BY MOUTH EVERY MORNING AND EVERY EVENING [facility] FUROSEMIDE 80 mg tablet 2-0 8-15 00:00: 00 Yes [id number] TAKE 1 TABLET BY MOUTH EVERY MORNING AND EVERY EVENING [facility] FUROSEMIDE 80 mg tablet 2-0 8-15 00:00: 00 Yes [id number] TAKE 1 TABLET BY MOUTH EVERY MORNING AND EVERY EVENING [facility] FUROSEMIDE 80 mg tablet 2-0 8-15 00:00: 00 Yes [id number] TAKE 1 TABLET BY MOUTH EVERY MORNING AND EVERY EVENING [facility] FUROSEMIDE 80 mg tablet 2-0 8-15 00:00: 00 Yes [id number] TAKE 1 TABLET BY MOUTH EVERY MORNING AND EVERY EVENING [facility] FUROSEMIDE 80 mg tablet 2-0 8-15 00:00: 00 Yes [id number] TAKE 1 TABLET BY MOUTH EVERY MORNING AND EVERY EVENING [facility] FUROSEMIDE 80 mg tablet 2-0 8-15 00:00: 00 Yes [id number] TAKE 1 TABLET BY MOUTH EVERY MORNING AND EVERY EVENING [facility] FUROSEMIDE 80 mg tablet 2-0 8-15 00:00: 00 Yes [id number] TAKE 1 TABLET BY MOUTH EVERY MORNING AND EVERY EVENING [facility] FUROSEMIDE 80 mg tablet 2-0 8-15 00:00: 00 Yes [id number] TAKE 1 TABLET BY MOUTH EVERY MORNING AND EVERY EVENING [facility] FUROSEMIDE 80 mg tablet 2-0 8-15 00:00: 00 Yes [id number] TAKE 1 TABLET BY MOUTH EVERY MORNING AND EVERY EVENING [facility] FUROSEMIDE 80 mg tablet 2-0 8-15 00:00: 00 Yes [id number] TAKE 1 TABLET BY MOUTH EVERY MORNING AND EVERY EVENING [facility] FUROSEMIDE 80 mg tablet 2-0 8-15 00:00: 00 Yes [id number] TAKE 1 TABLET BY MOUTH EVERY MORNING AND EVERY EVENING [facility] FUROSEMIDE 80 mg tablet 2-0 8-15 00:00: 00 Yes [id number] TAKE 1 TABLET BY MOUTH EVERY MORNING AND EVERY EVENING [facility] FUROSEMIDE 80 mg tablet 2-0 8-15 00:00: 00 Yes [id number] TAKE 1 TABLET BY MOUTH EVERY MORNING AND EVERY EVENING [facility] FUROSEMIDE 80 mg tablet 2-0 8-15 00:00: 00 Yes [id number] TAKE 1 TABLET BY MOUTH EVERY MORNING AND EVERY EVENING [facility] FUROSEMIDE 80 mg tablet 2022-0 8-15 00:00: 00 Yes [id number] TAKE 1 TABLET BY MOUTH EVERY MORNING AND EVERY EVENING [facility] FUROSEMIDE 80 mg tablet 2-0 8-15 00:00: 00 Yes [id number] TAKE 1 TABLET BY MOUTH EVERY MORNING AND EVERY EVENING [facility] FUROSEMIDE 80 mg tablet 2-0 8-15 00:00: 00 Yes [id number] TAKE 1 TABLET BY MOUTH EVERY MORNING AND EVERY EVENING [facility] FUROSEMIDE 80 mg tablet 2-0 8-15 00:00: 00 Yes [id number] TAKE 1 TABLET BY MOUTH EVERY MORNING AND EVERY EVENING [facility] FUROSEMIDE 80 mg tablet 2-0 8-15 00:00: 00 Yes [id number] TAKE 1 TABLET BY MOUTH EVERY MORNING AND EVERY EVENING [facility] FUROSEMIDE 80 mg tablet 2-0 8-15 00:00: 00 Yes [id number] TAKE 1 TABLET BY MOUTH EVERY MORNING AND EVERY EVENING [facility] FUROSEMIDE 80 mg tablet 2-0 8-15 00:00: 00 Yes [id number] TAKE 1 TABLET BY MOUTH EVERY MORNING AND EVERY EVENING [facility] FUROSEMIDE 80 mg tablet 2-0 8-15 00:00: 00 Yes [id number] TAKE 1 TABLET BY MOUTH EVERY MORNING AND EVERY EVENING [facility] FUROSEMIDE 80 mg tablet 2-0 8-15 00:00: 00 Yes [id number] TAKE 1 TABLET BY MOUTH EVERY MORNING AND EVERY EVENING [facility] FUROSEMIDE 80 mg tablet 2-0 8-15 00:00: 00 Yes [id number] TAKE 1 TABLET BY MOUTH EVERY MORNING AND EVERY EVENING [facility] FUROSEMIDE 80 mg tablet 2022-0 8-15 00:00: 00 Yes [id number] TAKE 1 TABLET BY MOUTH EVERY MORNING AND EVERY EVENING [facility] FUROSEMIDE 80 mg tablet 2-0 8-15 00:00: 00 Yes [id number] TAKE 1 TABLET BY MOUTH EVERY MORNING AND EVERY EVENING [facility] FUROSEMIDE 80 mg tablet 2-0 8-15 00:00: 00 Yes [id number] TAKE 1 TABLET BY MOUTH EVERY MORNING AND EVERY EVENING [facility] FUROSEMIDE 80 mg tablet 2-0 8-15 00:00: 00 Yes [id number] TAKE 1 TABLET BY MOUTH EVERY MORNING AND EVERY EVENING [facility] ELIQUIS 5 mg tablet 2021-0 8-08 00:00: 00 Yes [id number] 9108 TAKE 1 TABLET BY MOUTH TWICE DAILY [facility] ELIQUIS 5 mg tablet 2021-0 -08 00:00: 00 Yes [id number] TAKE 1 TABLET BY MOUTH TWICE DAILY [facility] ELIQUIS 5 mg tablet 2021-0 08 00:00: 00 01-19 00:00 :00 No [id number] TAKE 1 TABLET BY MOUTH TWICE DAILY [facility] ELIQUIS 5 mg tablet 2021-0 4-11 00:00: 00 Yes [id number] TAKE 1 TABLET BY MOUTH TWICE DAILY [facility] ELIQUIS 5 mg tablet 2021-0 -11 00:00: 00 11-17 00:00 :00 No [id number] TAKE 1 TABLET BY MOUTH TWICE DAILY [facility] SPIRONOLACT ONE 25 mg tablet 2021-0 06-18 00:00: 00 Yes [id number] TAKE 1 TABLET BY MOUTH EVERY DAY [facility] SPIRONOLACT ONE 25 mg tablet 2021-0 06-18 00:00: 00 Yes [id number] TAKE 1 TABLET BY MOUTH EVERY DAY [facility] SPIRONOLACT ONE 25 mg tablet 2021-0 06-18 00:00: 00 Yes [id number] TAKE 1 TABLET BY MOUTH EVERY DAY [facility] SPIRONOLACT ONE 25 mg tablet 2021-0 06-18 00:00: 00 Yes [id number] TAKE 1 TABLET BY MOUTH EVERY DAY [facility] SPIRONOLACT ONE 25 mg tablet 2021-0 06-18 00:00: 00 Yes [id number] TAKE 1 TABLET BY MOUTH EVERY DAY [facility] SPIRONOLACT ONE 25 mg tablet 2-0 06-18 00:00: 00 Yes [id number] TAKE 1 TABLET BY MOUTH EVERY DAY [facility] SPIRONOLACT ONE 25 mg tablet 2-0 06-18 00:00: 00 Yes [id number] TAKE 1 TABLET BY MOUTH EVERY DAY [facility] SPIRONOLACT ONE 25 mg tablet 2-0 06-18 00:00: 00 Yes [id number] TAKE 1 TABLET BY MOUTH EVERY DAY [facility] SPIRONOLACT ONE 25 mg tablet 2-0 06-18 00:00: 00 Yes [id number] TAKE 1 TABLET BY MOUTH EVERY DAY [facility] SPIRONOLACT ONE 25 mg tablet 2-0 06-18 00:00: 00 Yes [id number] TAKE 1 TABLET BY MOUTH EVERY DAY [facility] SPIRONOLACT ONE 25 mg tablet 2-0 06-18 00:00: 00 Yes [id number] TAKE 1 TABLET BY MOUTH EVERY DAY [facility] SPIRONOLACT ONE 25 mg tablet 2-0 06-18 00:00: 00 Yes [id number] TAKE 1 TABLET BY MOUTH EVERY DAY [facility] SPIRONOLACT ONE 25 mg tablet 2-0 06-18 00:00: 00 Yes [id number] TAKE 1 TABLET BY MOUTH EVERY DAY [facility] SPIRONOLACT ONE 25 mg tablet 2-0 06-18 00:00: 00 Yes [id number] TAKE 1 TABLET BY MOUTH EVERY DAY [facility] SPIRONOLACT ONE 25 mg tablet 2-0 06-18 00:00: 00 Yes [id number] TAKE 1 TABLET BY MOUTH EVERY DAY [facility] SPIRONOLACT ONE 25 mg tablet 2-0 06-18 00:00: 00 Yes [id number] TAKE 1 TABLET BY MOUTH EVERY DAY [facility] SPIRONOLACT ONE 25 mg tablet 2-0 06-18 00:00: 00 Yes [id number] TAKE 1 TABLET BY MOUTH EVERY DAY [facility] SPIRONOLACT ONE 25 mg tablet 2-0 06-18 00:00: 00 Yes [id number] TAKE 1 TABLET BY MOUTH EVERY DAY [facility] SPIRONOLACT ONE 25 mg tablet 2-0 06-18 00:00: 00 Yes [id number] TAKE 1 TABLET BY MOUTH EVERY DAY [facility] SPIRONOLACT ONE 25 mg tablet 2-0 06-18 00:00: 00 Yes [id number] TAKE 1 TABLET BY MOUTH EVERY DAY [facility] SPIRONOLACT ONE 25 mg tablet 2-0 06-18 00:00: 00 Yes [id number] TAKE 1 TABLET BY MOUTH EVERY DAY [facility] SPIRONOLACT ONE 25 mg tablet 2-0 06-18 00:00: 00 Yes [id number] TAKE 1 TABLET BY MOUTH EVERY DAY [facility] SPIRONOLACT ONE 25 mg tablet 2021-0 06-18 00:00: 00 Yes [id number] TAKE 1 TABLET BY MOUTH EVERY DAY [facility] SPIRONOLACT ONE 25 mg tablet 2-0 06-18 00:00: 00 Yes [id number] TAKE 1 TABLET BY MOUTH EVERY DAY [facility] SPIRONOLACT ONE 25 mg tablet 2-0 06-18 00:00: 00 Yes [id number] TAKE 1 TABLET BY MOUTH EVERY DAY [facility] SPIRONOLACT ONE 25 mg tablet 2-0 06-18 00:00: 00 Yes [id number] TAKE 1 TABLET BY MOUTH EVERY DAY [facility] SPIRONOLACT ONE 25 mg tablet 2-0 06-18 00:00: 00 Yes [id number] TAKE 1 TABLET BY MOUTH EVERY DAY [facility] SPIRONOLACT ONE 25 mg tablet 2-0 06-18 00:00: 00 Yes [id number] TAKE 1 TABLET BY MOUTH EVERY DAY [facility] SPIRONOLACT ONE 25 mg tablet 2-0 06-18 00:00: 00 Yes [id number] TAKE 1 TABLET BY MOUTH EVERY DAY [facility] SPIRONOLACT ONE 25 mg tablet 2-0 06-18 00:00: 00 Yes [id number] TAKE 1 TABLET BY MOUTH EVERY DAY [facility] SPIRONOLACT ONE 25 mg tablet 2-0 06-18 00:00: 00 Yes [id number] TAKE 1 TABLET BY MOUTH EVERY DAY [facility] SPIRONOLACT ONE 25 mg tablet 0 06-18 00:00: 00 Yes [id number] TAKE 1 TABLET BY MOUTH EVERY DAY [facility] SPIRONOLACT ONE 25 mg tablet 0 06-18 00:00: 00 Yes [id number] TAKE 1 TABLET BY MOUTH EVERY DAY [facility] SPIRONOLACT ONE 25 mg tablet 0 06-18 00:00: 00 Yes [id number] TAKE 1 TABLET BY MOUTH EVERY DAY [facility] SPIRONOLACT ONE 25 mg tablet 0 06-18 00:00: 00 Yes [id number] TAKE 1 TABLET BY MOUTH EVERY DAY [facility] SPIRONOLACT ONE 25 mg tablet 06-18 00:00: 00 Yes [id number] TAKE 1 TABLET BY MOUTH EVERY DAY [facility] SPIRONOLACT ONE 25 mg tablet 06-18 00:00: 00 Yes [id number] TAKE 1 TABLET BY MOUTH EVERY DAY [facility] SPIRONOLACT ONE 25 mg tablet 0 06-18 00:00: 00 Yes [id number] TAKE 1 TABLET BY MOUTH EVERY DAY [facility] SPIRONOLACT ONE 25 mg tablet 06-18 00:00: 00 Yes [id number] TAKE 1 TABLET BY MOUTH EVERY DAY [facility] FENTanyl PF (SUBLIMAZE (PF)) injection 50 mcg 06-12 19:15: 00 06-12 18:36 :00 No 50ug 50 mcg, Slow IV Push, ONCE, 1 dose, On Verena 06/12/21 at 1315, STAT [facility] NaCl 0.9% (NS) bolus infusion 1,000 mL 06-12 19:00: 00 06-12 19:35 :00 No 1000mL at 999 mL/hr, 1,000 mL, IV Piggyback, ONCE, 1 dose, On Verena 06/12/21 at 1300, STAT [facility] ondansetron (ZOFRAN (PF)) injection 4 mg 06-12 18:00: 00 06-12 18:36 :00 No 4mg 4 mg, Slow IV Push, ONCE, 1 dose, On Verena 06/12/21 at 1200, Routine [facility] ondansetron 4 mg disintegrat ing tablet 06-12 00:00: 00 Yes [id number] 4mg Take 1 tablet by mouth every 8 (eight) hours as needed for Nausea and Vomiting (N/V). [facility] ondansetron 4 mg disintegrat ing tablet 06-12 00:00: 00 Yes [id number] 4mg Take 1 tablet by mouth every 8 (eight) hours as needed for Nausea and Vomiting (N/V). [facility] ondansetron 4 mg disintegrat ing tablet 06-12 00:00: 00 Yes [id number] 4mg Take 1 tablet by mouth every 8 (eight) hours as needed for Nausea and Vomiting (N/V). [facility] ondansetron 4 mg disintegrat ing tablet 06-12 00:00: 00 Yes [id number] 4mg Take 1 tablet by mouth every 8 (eight) hours as needed for Nausea and Vomiting (N/V). [facility] ondansetron 4 mg disintegrat ing tablet 06-12 00:00: 00 Yes [id number] 4mg Take 1 tablet by mouth every 8 (eight) hours as needed for Nausea and Vomiting (N/V). [facility] ondansetron 4 mg disintegrat ing tablet 06-12 00:00: 00 Yes [id number] 4mg Take 1 tablet by mouth every 8 (eight) hours as needed for Nausea and Vomiting (N/V). [facility] ondansetron 4 mg disintegrat ing tablet 06-12 00:00: 00 Yes [id number] 4mg Take 1 tablet by mouth every 8 (eight) hours as needed for Nausea and Vomiting (N/V). [facility] ondansetron 4 mg disintegrat ing tablet 06-12 00:00: 00 Yes [id number] 4mg Take 1 tablet by mouth every 8 (eight) hours as needed for Nausea and Vomiting (N/V). [facility] ondansetron 4 mg disintegrat ing tablet 0 3-03 00:00: 00 Yes [id number] 4mg Take 1 tablet by mouth every 8 (eight) hours as needed for Nausea and Vomiting (N/V). [facility] ondansetron 4 mg disintegrat ing tablet 0 3-03 00:00: 00 Yes [id number] 4mg Take 1 tablet by mouth every 8 (eight) hours as needed for Nausea and Vomiting (N/V). [facility] ondansetron 4 mg disintegrat ing tablet 0 3- 00:00: 00 Yes [id number] 4mg Take 1 tablet by mouth every 8 (eight) hours as needed for Nausea and Vomiting (N/V). [facility] ondansetron 4 mg disintegrat ing tablet 0 - 00:00: 00 Yes [id number] 4mg Take 1 tablet by mouth every 8 (eight) hours as needed for Nausea and Vomiting (N/V). [facility] ondansetron 4 mg disintegrat ing tablet 0 - 00:00: 00 Yes [id number] 4mg Take 1 tablet by mouth every 8 (eight) hours as needed for Nausea and Vomiting (N/V). [facility] ondansetron 4 mg disintegrat ing tablet 0 3-03 00:00: 00 Yes [id number] 4mg Take 1 tablet by mouth every 8 (eight) hours as needed for Nausea and Vomiting (N/V). [facility] ondansetron 4 mg disintegrat ing tablet 0 3-03 00:00: 00 Yes [id number] 4mg Take 1 tablet by mouth every 8 (eight) hours as needed for Nausea and Vomiting (N/V). [facility] ondansetron 4 mg disintegrat ing tablet 2021-0 3-03 00:00: 00 08-18 00:00 :00 No [id number] 4mg Take 1 tablet by mouth every 8 (eight) hours as needed for Nausea and Vomiting (N/V). [facility] ondansetron 4 mg disintegrat ing tablet 2021-0 3-03 00:00: 00 2022- 05-09 00:00 :00 No [id number] 4mg Take 1 tablet by mouth every 8 (eight) hours as needed for Nausea and Vomiting (N/V). [facility] ondansetron 4 mg disintegrat ing tablet 06-12 00:00: 00 08-18 00:00 :00 No [id number] 4mg Take 1 tablet by mouth every 8 (eight) hours as needed for Nausea and Vomiting (N/V). [facility] ondansetron 4 mg disintegrat ing tablet 06-12 00:00: 00 08-18 00:00 :00 No [id number] 4mg Take 1 tablet by mouth every 8 (eight) hours as needed for Nausea and Vomiting (N/V). [facility] HYDROcodone -acetaminop hen (NORCO) 10-325 mg tablet 06-12 00:00: 00 06-20 05:59 :00 No 4647 .5{tbl} Take 0.5-1 tablets by mouth every 6 (six) hours as needed for Pain (scale 7-10) for up to 7 days. Indication s: acute pain [facility] HYDROcodone -acetaminop hen (NORCO) 10-325 mg tablet 06-12 00:00: 00 06-20 05:59 :00 No 4647 .5{tbl} Take 0.5-1 tablets by mouth every 6 (six) hours as needed for Pain (scale 7-10) for up to 7 days. Indication s: acute pain [facility] tamsulosin (FLOMAX) capsule 0.4 mg 06-07 15:00: 00 Yes .4mg 0.4 mg, Oral, DAILY, First dose on Wed06/07/21 at 0900, Until Discontinu ed, Routine [facility] NaCl 0.9% (NS) bolus infusion 1,000 mL 06-06 19:15: 00 06-06 19:20 :00 No 1000mL at 999 mL/hr, 1,000 mL, IV Infusion, ONCE, 1 dose, On Wed06/06/21 at 1315, STAT [facility] acetaminoph en-codeine 300-30 mg tablet 0 06-06 00:00: 00 Yes [id number] 1{tbl} Take 1 tablet by mouth every 4 (four) hours as needed for Pain (scale 4-6). Indication s: acute pain [facility] acetaminoph en-codeine 300-30 mg tablet 0 06-06 00:00: 00 Yes [id number] 1{tbl} Take 1 tablet by mouth every 4 (four) hours as needed for Pain (scale 4-6). Indication s: acute pain [facility] acetaminoph en-codeine 300-30 mg tablet 2021-0 06-06 00:00: 00 Yes [id number] 1{tbl} Take 1 tablet by mouth every 4 (four) hours as needed for Pain (scale 4-6). Indication s: acute pain [facility] acetaminoph en-codeine 300-30 mg tablet 0 06-06 00:00: 00 Yes [id number] 1{tbl} Take 1 tablet by mouth every 4 (four) hours as needed for Pain (scale 4-6). Indication s: acute pain [facility] acetaminoph en-codeine 300-30 mg tablet 0 06-06 00:00: 00 Yes [id number] 1{tbl} Take 1 tablet by mouth every 4 (four) hours as needed for Pain (scale 4-6). Indication s: acute pain [facility] acetaminoph en-codeine 300-30 mg tablet 0 06-06 00:00: 00 Yes [id number] 1{tbl} Take 1 tablet by mouth every 4 (four) hours as needed for Pain (scale 4-6). Indication s: acute pain [facility] acetaminoph en-codeine 300-30 mg tablet 2021-0 06-06 00:00: 00 Yes [id number] 1{tbl} Take 1 tablet by mouth every 4 (four) hours as needed for Pain (scale 4-6). Indication s: acute pain [facility] acetaminoph en-codeine 300-30 mg tablet 0 2 00:00: 00 Yes [id number] 1{tbl} Take 1 tablet by mouth every 4 (four) hours as needed for Pain (scale 4-6). Indication s: acute pain [facility] acetaminoph en-codeine 300-30 mg tablet 2021-0 2- 00:00: 00 Yes [id number] 1{tbl} Take 1 tablet by mouth every 4 (four) hours as needed for Pain (scale 4-6). Indication s: acute pain [facility] acetaminoph en-codeine 300-30 mg tablet 2021-0 06-06 00:00: 00 Yes [id number] 1{tbl} Take 1 tablet by mouth every 4 (four) hours as needed for Pain (scale 4-6). Indication s: acute pain [facility] acetaminoph en-codeine 300-30 mg tablet 2021-0 06-06 00:00: 00 Yes 4647 1{tbl} Take 1 tablet by mouth every 4 (four) hours as needed for Pain (scale 4-6). Indication s: acute pain [facility] acetaminoph en-codeine 300-30 mg tablet 2021-0 06-06 00:00: 00 Yes 4647 1{tbl} Take 1 tablet by mouth every 4 (four) hours as needed for Pain (scale 4-6). Indication s: acute pain [facility] acetaminoph en-codeine 300-30 mg tablet 06-06 00:00: 00 Yes 4647 1{tbl} Take 1 tablet by mouth every 4 (four) hours as needed for Pain (scale 4-6). Indication s: acute pain [facility] acetaminoph en-codeine 300-30 mg tablet 0 06-06 00:00: 00 Yes 4647 1{tbl} Take 1 tablet by mouth every 4 (four) hours as needed for Pain (scale 4-6). Indication s: acute pain [facility] [facility] acetaminoph en-codeine 300-30 mg tablet 2021-0 25 00:00: 00 Yes [id number] 1{tbl} Take 1 tablet by mouth every 4 (four) hours as needed for Pain (scale 4-6). Indication s: [facility] acetaminoph en-codeine 300-30 mg tablet 2022-0 2-25 00:00: 00 Yes 4647 1{tbl} Take 1 tablet by mouth every 4 (four) hours as needed for Pain (scale 4-6). Indication [facility]: [facility] 300-30 mg tablet 2022-0 2-25 00:00: 00 Yes 4647 1{tbl} Take 1 tablet by mouth every 4 (four) hours as needed for Pain (scale 4-6). Indication s: acute pain [facility] acetaminoph en-codeine 300-30 mg tablet 2-0 2-25 00:00: 00 Yes 4647 1{tbl} Take 1 tablet by mouth every 4 (four) hours as needed for Pain (scale 4-6). Indication s: acute pain [facility] tamsulosin 0.4 mg 24 hr capsule 2-0 2-25 00:00: 00 Yes [id number] .4mg Take 1 capsule by mouth at bedtime. [facility] acetaminoph en-codeine 300-30 mg tablet 2021-0 2-25 00:00: 00 Yes 4647 1{tbl} Take 1 tablet by mouth every 4 (four) hours as needed for Pain (scale 4-6). Indication s: acute pain [facility] tamsulosin 0.4 mg 24 hr capsule 2-0 2-25 00:00: 00 Yes [id number] .4mg Take 1 capsule by mouth at bedtime. [facility] acetaminoph en-codeine 300-30 mg tablet 2-0 2-25 00:00: 00 Yes 4647 1{tbl} Take 1 tablet by mouth every 4 (four) hours as needed for Pain (scale 4-6). Indication s: acute pain [facility] tamsulosin 0.4 mg 24 hr capsule 2-0 2-25 00:00: 00 Yes [id number] .4mg Take 1 capsule by mouth at bedtime. [facility]-30 mg tablet 2022-0 2-25 00:00: 00 Yes 4647 1{tbl} Take 1 tablet by mouth every 4 (four) hours as needed for Pain (scale 4-6). Indication s: acute pain [facility] tamsulosin 0.4 mg 24 hr capsule 2022-0 2-25 00:00: 00 Yes [id number] .4mg Take 1 capsule by mouth at bedtime. [facility]-30 mg tablet 2-0 2-25 00:00: 00 Yes 4647 1{tbl} Take 1 tablet by mouth every 4 (four) hours as needed for Pain (scale 4-6). Indication s: acute pain [facility] tamsulosin 0.4 mg 24 hr capsule 2-0 2-25 00:00: 00 Yes [id number] .4mg Take 1 capsule by mouth at bedtime. [facility] acetaminoph en-codeine 300-30 mg tablet 2021-0 2-25 00:00: 00 Yes 4647 1{tbl} Take 1 tablet by mouth every 4 (four) hours as needed for Pain (scale 4-6). Indication s: acute pain [facility] t[facility] 0.4 mg 24 hr capsule 2021-0 2-25 00:00: 00 Yes [id number] .4mg Take 1 capsule by mouth at bedtime. [facility] acetaminoph en-codeine 300-30 mg tablet 2-0 2-25 00:00: 00 Yes 4647 1{tbl} Take 1 tablet by mouth every 4 (four) hours as needed for Pain (scale 4-6). Indication s: acute pain [facility] tamsulosin 0.4 mg 24 hr capsule 2-0 2-25 00:00: 00 Yes [id number] .4mg Take 1 capsule by mouth at bedtime. [facility]-codeine 300-30 mg tablet 2-0 2-25 00:00: 00 Yes 4647 1{tbl} Take 1 tablet by mouth every 4 (four) hours as needed for Pain (scale 4-6). Indication s: acute pain [facility] tamsulosin 0.4 mg 24 hr capsule 2022-0 2-25 00:00: 00 Yes [id number] .4mg Take 1 capsule by mouth at bedtime. [facility] acetaminoph en-codeine 300-30 mg tablet 2-0 2-25 00:00: 00 Yes 4647 1{tbl} Take 1 tablet by mouth every 4 (four) hours as needed for Pain (scale 4-6). Indication s: acute pain [facility] tamsulosin 0.4 mg 24 hr capsule 2-0 2-25 00:00: 00 Yes [id number] .4mg Take 1 capsule by mouth at bedtime. [facility] acetaminoph en-codeine 300-30 mg tablet 2-0 2-25 00:00: 00 Yes 4647 1{tbl} Take 1 tablet by mouth every 4 (four) hours as needed for Pain (scale 4-6). Indication s: acute pain [facility] tamsulosin 0.4 mg 24 hr capsule 2021-0 2-25 00:00: 00 Yes [id number] .4mg Take 1 capsule by mouth at bedtime. [facility] acetaminoph en-codeine 300-30 mg tablet 2021-0 2-25 00:00: 00 Yes 4647 1{tbl} Take 1 tablet by mouth every 4 (four) hours as needed for Pain (scale 4-6). Indication s: acute pain [facility] tamsulosin 0.4 mg 24 hr capsule 2-0 2-25 00:00: 00 Yes [id number] .4mg Take 1 capsule by mouth at bedtime. [facility] acetaminoph en-codeine 300-30 mg tablet 2-0 2-25 00:00: 00 Yes 4647 1{tbl} Take 1 tablet by mouth every 4 (four) hours as needed for Pain (scale 4-6). Indication s: acute pain [facility] tamsulosin 0.4 mg 24 hr capsule 2-0 2-25 00:00: 00 Yes [id number] .4mg Take 1 capsule by mouth at bedtime. [facility] acetaminoph en-codeine 300-30 mg tablet 2-0 2-25 00:00: 00 Yes 4647 1{tbl} Take 1 tablet by mouth every 4 (four) hours as needed for Pain (scale 4-6). Indication s: acute pain [facility] tamsulosin 0.4 mg 24 hr capsule 2-0 2-25 00:00: 00 Yes [id number] .4mg Take 1 capsule by mouth at bedtime. [facility] acetaminoph en-codeine 300-30 mg tablet 2021-0 2-25 00:00: 00 Yes 4647 1{tbl} Take 1 tablet by mouth every 4 (four) hours as needed for Pain (scale 4-6). Indication s: acute pain [facility] tamsulosin 0.4 mg 24 hr capsule 2021-0 2-25 00:00: 00 Yes [id number] .4mg Take 1 capsule by mouth at bedtime. [facility] acetaminoph en-codeine 300-30 mg tablet 2021-0 2-25 00:00: 00 Yes 4647 1{tbl} Take 1 tablet by mouth every 4 (four) hours as needed for Pain (scale 4-6). Indication s: acute pain [facility] tamsulosin 0.4 mg 24 hr capsule 2021-0 225 00:00: 00 Yes [id number] .4mg Take 1 capsule by mouth at bedtime. [facility] acetaminoph en-codeine 300-30 mg tablet 2021-0 2-25 00:00: 00 Yes 4647 1{tbl} Take 1 tablet by mouth every 4 (four) hours as needed for Pain (scale 4-6). Indication s: acute pain [facility] acetaminoph en-codeine 300-30 mg tablet 2021-0 2-25 00:00: 00 Yes 4647 1{tbl} Take 1 tablet by mouth every 4 (four) hours as needed for Pain (scale 4-6). Indication s: acute pain [facility] acetaminoph en-codeine 300-30 mg tablet 2-0 2-25 00:00: 00 Yes 4647 1{tbl} Take 1 tablet by mouth every 4 (four) hours as needed for Pain (scale 4-6). Indication s: acute pain [facility] acetaminoph en-codeine 300-30 mg tablet 2021-0 2-25 00:00: 00 Yes 4647 1{tbl} Take 1 tablet by mouth every 4 (four) hours as needed for Pain (scale 4-6). Indication s: acute pain [facility] acetaminoph en-codeine 300-30 mg tablet 2021-0 2-25 00:00: 00 Yes 4647 1{tbl} Take 1 tablet by mouth every 4 (four) hours as needed for Pain (scale 4-6). Indication s: [facility]-codeine 300-30 mg tablet 2021-0 2-25 00:00: 00 Yes 4647 1{tbl} Take 1 tablet by mouth every 4 (four) hours as needed for Pain (scale 4-6). Indication s: acute pain [facility] acetaminoph en-codeine 300-30 mg tablet 2021-0 2-25 00:00: 00 Yes 4647 1{tbl} Take 1 tablet by mouth every 4 (four) hours as needed for Pain (scale 4-6). Indication s: acute pain [facility]-codeine 300-30 mg tablet 0 225 00:00: 00 Yes 4647 1{tbl} Take 1 tablet by mouth every 4 (four) hours as needed for Pain (scale 4-6). Indication [facility]: [facility] acetaminoph en-codeine 300-30 mg tablet 0 225 00:00: 00 Yes 4647 1{tbl} Take 1 tablet by mouth every 4 (four) hours as needed for Pain (scale 4-6). Indication s: acute pain [facility] tamsulosin 0.4 mg 24 hr capsule 2021-0 2-25 00:00: 00 08-18 00:00 :00 No [id number] .4mg Take 1 capsule by mouth at bedtime. [facility] tamsulosin 0.4 mg 24 hr capsule 2021-0 2-25 00:00: 00 08-18 00:00 :00 No [id number] .4mg Take 1 capsule by mouth at bedtime. [facility] tamsulosin 0.4 mg 24 hr capsule 2021-0 2-25 00:00: 00 08-18 00:00 :00 No [id number] .4mg Take 1 capsule by mouth at bedtime. [facility] tamsulosin 0.4 mg 24 hr capsule 2021-0 2-25 00:00: 00 08-18 00:00 :00 No [id number] .4mg Take 1 capsule by mouth at bedtime. [facility] FUROSEMIDE 80 mg tablet 0 2- 00:00: 00 Yes [id number] TAKE 1 TABLET BY MOUTH EVERY MORNING AND EVERY EVENING [facility] mg tablet 2021-0 05-15 00:00: 00 Yes [id number] TAKE 1 TABLET BY MOUTH EVERY MORNING AND EVERY EVENING [facility] FUROSEMIDE 80 mg tablet 2021-0 2 00:00: 00 Yes [id number] TAKE 1 TABLET BY MOUTH EVERY MORNING AND EVERY EVENING [facility] FUROSEMIDE 80 mg tablet 2021-0 2 00:00: 00 Yes [id number] TAKE 1 TABLET BY MOUTH EVERY MORNING AND EVERY EVENING [facility] F[facility] mg tablet 2021-0 2 00:00: 00 Yes [id number] TAKE 1 TABLET BY MOUTH EVERY MORNING AND EVERY EVENING [facility] FUROSEMIDE 80 mg tablet 2021-0 05-15 00:00: 00 Yes [id number] TAKE 1 TABLET BY MOUTH EVERY MORNING AND EVERY EVENING [facility] FUROSEMIDE 80 mg tablet 0 05-15 00:00: 00 11-24 00:00 :00 No [id number] TAKE 1 TABLET BY MOUTH EVERY MORNING AND EVERY EVENING [facility] ELIQUIS 5 mg tablet 2021-0 04-30 00:00: 00 Yes [id number] TAKE 1 TABLET BY MOUTH TWICE DAILY [facility] ELIQUIS 5 mg tablet 2021-0 -19 00:00: 00 Yes [id number] TAKE 1 TABLET BY MOUTH TWICE DAILY [facility] ELIQUIS 5 mg tablet 2021-0 - 00:00: 00 Yes [id number] TAKE 1 TABLET BY MOUTH TWICE DAILY [facility] ELIQUIS 5 mg tablet 2021-0 04-30 00:00: 00 Yes [id number] TAKE 1 TABLET BY MOUTH TWICE DAILY [facility] ELIQUIS 5 mg tablet 2021-0 04-30 00:00: 00 Yes [id number] TAKE 1 TABLET BY MOUTH TWICE DAILY [facility] ELIQUIS 5 mg tablet 2021-0 04-30 00:00: 00 07-21 00:00 :00 No [id number] TAKE 1 TABLET BY MOUTH TWICE DAILY [facility] CARVEDILOL 25 mg tablet 2021-0 04-17 00:00: 00 Yes TAKE 1 TABLET BY MOUTH TWICE DAILY WITH MEALS [facility] CARVEDILOL 25 mg tablet 2021-0 04-17 00:00: 00 Yes TAKE 1 TABLET BY MOUTH TWICE DAILY WITH MEALS [facility] CARVEDILOL 25 mg tablet 2021-0 04-17 00:00: 00 Yes TAKE 1 TABLET BY MOUTH TWICE DAILY WITH MEALS [facility] CARVEDILOL 25 mg tablet 2021-0 04-17 00:00: 00 Yes TAKE 1 TABLET BY MOUTH TWICE DAILY WITH MEALS [facility] CARVEDILOL 25 mg tablet 2021-0 04-17 00:00: 00 Yes TAKE 1 TABLET BY MOUTH TWICE DAILY WITH MEALS [facility] CARVEDILOL 25 mg tablet 2021-0 04-17 00:00: 00 Yes TAKE 1 TABLET BY MOUTH TWICE DAILY WITH MEALS [facility] CARVEDILOL 25 mg tablet 2021-0 04-17 00:00: 00 Yes TAKE 1 TABLET BY MOUTH TWICE DAILY WITH MEALS [facility] CARVEDILOL 25 mg tablet 2021-0 04-17 00:00: 00 Yes TAKE 1 TABLET BY MOUTH TWICE DAILY WITH MEALS [facility] CARVEDILOL 25 mg tablet 2021-0 04-17 00:00: 00 Yes TAKE 1 TABLET BY MOUTH TWICE DAILY WITH MEALS [facility] CARVEDILOL 25 mg tablet 2021-0 04-17 00:00: 00 Yes TAKE 1 TABLET BY MOUTH TWICE DAILY WITH MEALS [facility] CARVEDILOL 25 mg tablet 04-17 00:00: 00 Yes TAKE 1 TABLET BY MOUTH TWICE DAILY WITH MEALS [facility] CARVEDILOL 25 mg tablet 04-17 00:00: 00 02-20 00:00 :00 No TAKE 1 TABLET BY MOUTH TWICE DAILY WITH MEALS [facility] ELIQUIS 5 mg tablet 2020-04 00:00: 00 Yes [id number] TAKE 1 TABLET BY MOUTH TWICE DAILY [facility] ELIQUIS 5 mg tablet 2020-04 00:00: 00 Yes [id number] TAKE 1 TABLET BY MOUTH TWICE DAILY [facility] ELIQUIS 5 mg tablet 2020-04 00:00: 00 04-30 00:00 :00 No [id number] TAKE 1 TABLET BY MOUTH TWICE DAILY [facility] FUROSEMIDE 80 mg tablet 2020-04 00:00: 00 Yes [id number] TAKE 1 TABLET BY MOUTH EVERY MORNING AND EVERY EVENING [facility] FUROSEMIDE 80 mg tablet 2020-04 00:00: 00 Yes [id number] TAKE 1 TABLET BY MOUTH EVERY MORNING AND EVERY EVENING [facility] FUROSEMIDE 80 mg tablet 2020-04 00:00: 00 Yes [id number] TAKE 1 TABLET BY MOUTH EVERY MORNING AND EVERY EVENING [facility] FUROSEMIDE 80 mg tablet 2020-04 00:00: 00 Yes [id number] TAKE 1 TABLET BY MOUTH EVERY MORNING AND EVERY EVENING [facility] FUROSEMIDE 80 mg tablet 2020-04 00:00: 00 05-15 00:00 :00 No [id number] TAKE 1 TABLET BY MOUTH EVERY MORNING AND EVERY EVENING [facility] CARVEDILOL 25 mg tablet 01-09 00:00: 00 Yes TAKE 1 TABLET BY MOUTH TWICE DAILY WITH MEALS [facility] CARVEDILOL 25 mg tablet 01-09 00:00: 00 Yes TAKE 1 TABLET BY MOUTH TWICE DAILY WITH MEALS [facility] CARVEDILOL 25 mg tablet 01-09 00:00: 00 Yes TAKE 1 TABLET BY MOUTH TWICE DAILY WITH MEALS [facility] mg tablet 01-09 00:00: 00 Yes TAKE 1 TABLET BY MOUTH TWICE DAILY WITH MEALS [facility] CARVEDILOL 25 mg tablet 01-09 00:00: 00 04-17 00:00 :00 No TAKE 1 TABLET BY MOUTH TWICE DAILY WITH MEALS [facility] traMADoL 50 mg tablet 01-01 00:00: 00 Yes [id number] 50mg Take 1 tablet by mouth every 6 (six) hours as needed for Pain (scale 4-6). Indication s: chronic pain [facility] traMADoL 50 mg tablet 01-01 00:00: 00 Yes 2745 50mg Take 1 tablet by mouth every 6 (six) hours as needed for Pain (scale 4-6). Indication s: [facility] tablet 01-01 00:00: 00 Yes 2745 50mg Take 1 tablet by mouth every 6 (six) hours as needed for Pain (scale 4-6). Indication s: [facility] tra[facility] mg tablet 01-01 00:00: 00 Yes 2745 50mg Take 1 tablet by mouth every 6 (six) hours as needed for Pain (scale 4-6). Indication s: chronic pain [facility] traMADoL 50 mg tablet 01-01 00:00: 00 Yes 2745 50mg Take 1 tablet by mouth every 6 (six) hours as needed for Pain (scale 4-6). Indication s: chronic pain [facility] tra[facility] mg tablet 01-01 00:00: 00 Yes 2745 50mg Take 1 tablet by mouth every 6 (six) hours as needed for Pain (scale 4-6). Indication s: chronic pain [facility] traMADoL 50 mg tablet 01-01 00:00: 00 Yes 2745 50mg Take 1 tablet by mouth every 6 (six) hours as needed for Pain (scale 4-6). Indication s: chronic pain [facility] traMADoL 50 mg tablet 01-01 00:00: 00 Yes 2745 50mg Take 1 tablet by mouth every 6 (six) hours as needed for Pain (scale 4-6). Indication s: chronic pain [facility] traMADoL 50 mg tablet 01-01 00:00: 00 Yes 2745 50mg Take 1 tablet by mouth every 6 (six) hours as needed for Pain (scale 4-6). Indication s: chronic pain [facility] traMADoL 50 mg tablet 01-01 00:00: 00 Yes 2745 50mg Take 1 tablet by mouth every 6 (six) hours as needed for Pain (scale 4-6). Indication s: chronic pain [facility] traMADoL 50 mg tablet 01-01 00:00: 00 Yes 2745 50mg Take 1 tablet by mouth every 6 (six) hours as needed for Pain (scale 4-6). Indication s: chronic pain [facility] traMADoL 50 mg tablet 01-01 00:00: 00 Yes 2745 50mg Take 1 tablet by mouth every 6 (six) hours as needed for Pain (scale 4-6). Indication s: chronic pain [facility] traMADoL 50 mg tablet 01-01 00:00: 00 Yes 2745 50mg Take 1 tablet by mouth every 6 (six) hours as needed for Pain (scale 4-6). Indication s: chronic pain [facility] traMADoL 50 mg tablet 01-01 00:00: 00 Yes 2745 50mg Take 1 tablet by mouth every 6 (six) hours as needed for Pain (scale 4-6). Indication s: chronic pain [facility] traMADoL 50 mg tablet 01-01 00:00: 00 Yes 2745 50mg Take 1 tablet by mouth every 6 (six) hours as needed for Pain (scale 4-6). Indication s: chronic pain [facility] traMADoL 50 mg tablet 01-01 00:00: 00 Yes 2745 50mg Take 1 tablet by mouth every 6 (six) hours as needed for Pain (scale 4-6). Indication s: chronic pain [facility] traMADoL 50 mg tablet 01-01 00:00: 00 Yes 2745 50mg Take 1 tablet by mouth every 6 (six) hours as needed for Pain (scale 4-6). Indication s: chronic pain [facility] traMADoL 50 mg tablet 01-01 00:00: 00 Yes 2745 50mg Take 1 tablet by mouth every 6 (six) hours as needed for Pain (scale 4-6). Indication s: chronic pain [facility] traMADoL 50 mg tablet 01-01 00:00: 00 Yes 2745 50mg Take 1 tablet by mouth every 6 (six) hours as needed for Pain (scale 4-6). Indication s: chronic pain [facility] traMADoL 50 mg tablet 01-01 00:00: 00 Yes 2745 50mg Take 1 tablet by mouth every 6 (six) hours as needed for Pain (scale 4-6). Indication s: chronic pain [facility] traMADoL 50 mg tablet 01-01 00:00: 00 Yes 2745 50mg Take 1 tablet by mouth every 6 (six) hours as needed for Pain (scale 4-6). Indication s: chronic pain [facility] traMADoL 50 mg tablet 01-01 00:00: 00 Yes 2745 50mg Take 1 tablet by mouth every 6 (six) hours as needed for Pain (scale 4-6). Indication s: chronic pain [facility] traMADoL 50 mg tablet 01-01 00:00: 00 Yes 2745 50mg Take 1 tablet by mouth every 6 (six) hours as needed for Pain (scale 4-6). Indication s: chronic pain [facility] traMADoL 50 mg tablet 01-01 00:00: 00 08-18 00:00 :00 No 2745 50mg Take 1 tablet by mouth every 6 (six) hours as needed for Pain (scale 4-6). Indication s: chronic pain [facility] traMADoL 50 mg tablet 01-01 00:00: 00 08-18 00:00 :00 No 2745 50mg Take 1 tablet by mouth every 6 (six) hours as needed for Pain (scale 4-6). Indication s: chronic pain [facility] traMADoL 50 mg tablet 01-01 00:00: 00 08-18 00:00 :00 No 2745 50mg Take 1 tablet by mouth every 6 (six) hours as needed for Pain (scale 4-6). Indication s: chronic pain [facility] traMADoL 50 mg tablet 01-01 00:00: 00 08-18 00:00 :00 No 2745 50mg Take 1 tablet by mouth every 6 (six) hours as needed for Pain (scale 4-6). Indication s: chronic pain [facility] ELIQUIS 5 mg tablet 12-23 00:00: 00 Yes [id number] TAKE 1 TABLET BY MOUTH TWICE DAILY [facility] ELIQUIS 5 mg tablet 12-23 00:00: 00 Yes [id number] TAKE 1 TABLET BY MOUTH TWICE DAILY [facility] ELIQUIS 5 mg tablet 12-23 00:00: 00 Yes [id number] TAKE 1 TABLET BY MOUTH TWICE DAILY [facility] ELIQUIS 5 mg tablet 12-23 00:00: 00 03-17 00:00 :00 No [id number] TAKE 1 TABLET BY MOUTH TWICE DAILY [facility] spironolact one 25 mg tablet 12-18 00:00: 00 03-19 05:59 :00 No [id number] 25mg Take 1 tablet by mouth daily for 90 days. [facility] spironolact one 25 mg tablet 12-18 00:00: 00 03-19 05:59 :00 No [id number] 25mg Take 1 tablet by mouth daily for 90 days. [facility] spironolact one 25 mg tablet 12-18 00:00: 00 03-19 05:59 :00 No [id number] 25mg Take 1 tablet by mouth daily for 90 days. [facility] spironolact one 25 mg tablet 12-18 00:00: 00 03-19 05:59 :00 No [id number] 25mg Take 1 tablet by mouth daily for 90 days. [facility] sulfAD[facility]ZIN E 1 % cream 2020-0 8-11 00:00: 00 Yes [id number] Apply to area(s) daily. [facility] silver sulfADIAZIN E 1 % cream 2020-0 8-11 00:00: 00 Yes [id number] Apply to area(s) daily. [facility] sulfADIAZIN E 1 % cream 2020-0 8-11 00:00: 00 Yes [id number] Apply to area(s) daily. [facility] silver sulfADIAZIN E 1 % cream 2020-0 8-11 00:00: 00 Yes [id number] Apply to area(s) daily. [facility] silver sulfADIAZIN E 1 % cream 2020-0 8-11 00:00: 00 Yes [id number] Apply to area(s) daily. [facility] silver sulfADIAZIN E 1 % cream 2020-0 8-11 00:00: 00 Yes [id number] Apply to area(s) daily. [facility] silver sulfADIAZIN E 1 % cream 2020-0 811 00:00: 00 Yes [id number] Apply to area(s) daily. [facility] silver sulfADIAZIN E 1 % cream 2020-0 8-11 00:00: 00 Yes [id number] Apply to area(s) daily. [facility] silver sulfADIAZIN E 1 % cream 2020-0 8-11 00:00: 00 Yes [id number] Apply to area(s) daily. [facility] silver sulfADIAZIN E 1 % cream 2020-0 8-11 00:00: 00 Yes [id number] Apply to area(s) daily. [facility] silver sulfADIAZIN E 1 % cream 2020-0 8-11 00:00: 00 Yes [id number] Apply to area(s) daily. [facility] silver sulfADIAZIN E 1 % cream 2020-0 8-11 00:00: 00 Yes [id number] Apply to area(s) daily. [facility] silver sulfADIAZIN E 1 % cream 1-0 8-11 00:00: 00 Yes [id number] Apply to area(s) daily. [facility] sulfADIAZIN E 1 % cream 2020-0 8-11 00:00: 00 Yes [id number] Apply to area(s) daily. [facility] sulfAD[facility]ZIN E 1 % cream 1-0 8-11 00:00: 00 Yes [id number] Apply to area(s) daily. [facility] sulfADIAZIN E 1 % cream 2020-0 8-11 00:00: 00 Yes [id number] Apply to area(s) daily. [facility] silver sulfADIAZIN E 1 % cream 2020-0 8-11 00:00: 00 Yes [id number] Apply to area(s) daily. [facility] silver sulfADIAZIN E 1 % cream 2020-0 8-11 00:00: 00 Yes [id number] Apply to area(s) daily. [facility] silver sulfADIAZIN E 1 % cream 2020-0 8-11 00:00: 00 Yes [id number] Apply to area(s) daily. [facility] silver sulfADIAZIN E 1 % cream 2020-0 8-11 00:00: 00 Yes [id number] Apply to area(s) daily. [facility] silver sulfADIAZIN E 1 % cream 2020-0 8-11 00:00: 00 Yes [id number] Apply to area(s) daily. [facility] silver sulfADIAZIN E 1 % cream 2020-0 8-11 00:00: 00 Yes [id number] Apply to area(s) daily. [facility] silver sulfADIAZIN E 1 % cream 1-0 8-11 00:00: 00 Yes [id number] Apply to area(s) daily. [facility] silver sulfADIAZIN E 1 % cream 1-0 8-11 00:00: 00 2023 05-09 00:00 :00 No [id number] Apply to area(s) daily. [facility] silver sulfADIAZIN E 1 % cream 2021-0 8-11 00:00: 00 08-18 00:00 :00 No [id number] Apply to area(s) daily. [facility] silver sulfADIAZIN E 1 % cream 11-20 00:00: 00 08-18 00:00 :00 No [id number] Apply to area(s) daily. [facility] ity [facility] silver sulfADIAZIN E 1 % cream 11-20 00:00: 00 08-18 00:00 :00 No [id number] Apply to area(s) daily. [facility] ity [facility] nystatin 100,000 unit/gram powder 2020-0 8-10 00:00: 00 Yes [id number] Apply to area(s) 2 (two) times daily. [facility] ity [facility] nystatin 100,000 unit/gram powder 2020-0 8-10 00:00: 00 Yes [id number] Apply to area(s) 2 (two) times daily. [facility] ity [facility] nystatin 100,000 unit/gram powder 2020-0 8-10 00:00: 00 Yes [id number] Apply to area(s) 2 (two) times daily. [facility] ity [facility] nystatin 100,000 unit/gram powder 2020-0 8-10 00:00: 00 Yes [id number] Apply to area(s) 2 (two) times daily. [facility] ity [facility] nystatin 100,000 unit/gram powder 2020-0 8-10 00:00: 00 Yes [id number] Apply to area(s) 2 (two) times daily. [facility] ity [facility] nystatin 100,000 unit/gram powder 2020-0 8-10 00:00: 00 Yes [id number] Apply to area(s) 2 (two) times daily. [facility] ity [facility] nystatin 100,000 unit/gram powder 2020-0 8-10 00:00: 00 Yes [id number] Apply to area(s) 2 (two) times daily. [facility] ity [facility] nystatin 100,000 unit/gram powder 2020-0 8-10 00:00: 00 Yes [id number] Apply to area(s) 2 (two) times daily. [facility] [place] [facility] nystatin 100,000 unit/gram powder 2021-0 8-10 00:00: 00 Yes [id number] Apply to area(s) 2 (two) times daily. [facility] [place] [facility] nystatin 100,000 unit/gram powder 2021-0 8-10 00:00: 00 Yes [id number] Apply to area(s) 2 (two) times daily. [facility] nystatin 100,000 unit/gram powder 2021-0 8-10 00:00: 00 Yes [id number] Apply to area(s) 2 (two) times daily. [facility] nystatin 100,000 unit/gram powder 2021-0 8-10 00:00: 00 Yes [id number] Apply to area(s) 2 (two) times daily. [facility] ity [facility] nystatin 100,000 unit/gram powder 2021-0 8-10 00:00: 00 Yes [id number] Apply to area(s) 2 (two) times daily. [facility] it[facility] nystatin 100,000 unit/gram powder 2021-0 8-10 00:00: 00 Yes [id number] Apply to area(s) 2 (two) times daily. [facility] [place] [facility] nystatin 100,000 unit/gram powder 2021-0 8-10 00:00: 00 Yes [id number] Apply to area(s) 2 (two) times daily. [facility] ity [facility] nystatin 100,000 unit/gram powder 2021-0 8-10 00:00: 00 Yes [id number] Apply to area(s) 2 (two) times daily. [facility] [place] [facility] nystatin 100,000 unit/gram powder 2021-0 8-10 00:00: 00 Yes [id number] Apply to area(s) 2 (two) times daily. [facility] nystatin 100,000 unit/gram powder 2021-0 8-10 00:00: 00 Yes [id number] Apply to area(s) 2 (two) times daily. [facility] it[facility] nystatin 100,000 unit/gram powder 2021-0 8-10 00:00: 00 Yes [id number] Apply to area(s) 2 (two) times daily. [facility] nystatin 100,000 unit/gram powder 2021-0 8-10 00:00: 00 Yes [id number] Apply to area(s) 2 (two) times daily. [facility] nystatin 100,000 unit/gram powder 0 810 00:00: 00 Yes [id number] Apply to area(s) 2 (two) times daily. [facility] nystatin 100,000 unit/gram powder 0 8-10 00:00: 00 Yes [id number] Apply to area(s) 2 (two) times daily. [facility] nystatin 100,000 unit/gram powder 0 8-10 00:00: 00 Yes [id number] Apply to area(s) 2 (two) times daily. [facility] nystatin 100,000 unit/gram powder 0 8-10 00:00: 00 08-18 00:00 :00 No [id number] Apply to area(s) 2 (two) times daily. [facility] nystatin 100,000 unit/gram powder 0 8 00:00: 00 08-18 00:00 :00 No [id number] Apply to area(s) 2 (two) times daily. [facility] nystatin 100,000 unit/gram powder 0 8 00:00: 00 08-18 00:00 :00 No [id number] Apply to area(s) 2 (two) times daily. [facility] it[facility] nystatin 100,000 unit/gram powder 11-19 00:00: 00 08-18 00:00 :00 No [id number] Apply to area(s) 2 (two) times daily. [facility] mg tablet 11-18 00:00: 00 Yes [id number] TAKE 1 TABLET BY MOUTH EVERY MORNING AND EVERY EVENING [facility] FUROSEMIDE 80 mg tablet 11-18 00:00: 00 Yes [id number] TAKE 1 TABLET BY MOUTH EVERY MORNING AND EVERY EVENING [facility] mg tablet 11-18 00:00: 00 02-17 00:00 :00 No [id number] TAKE 1 TABLET BY MOUTH EVERY MORNING AND EVERY EVENING [facility] Vital Signs Vital Name Observation Time Observation Value Comments S ource Systolic blood pressure 2023-05-18 22:02:00 144 mm[Hg] [facility] Diastolic blood pressure 2023-05-18 22:02:00 77 mm[Hg] [facility] Heart rate 2023-05-18 22:01:00 90 /min [facility] Body temperature 2023-05-18 22:01:00 37 Barb [facility] Body height 2023-05-18 22:01:00 193 cm [facility] Body weight 2023-05-18 22:01:00 223.623 kg [facility] BMI 2023-05-18 22:01:00 60.01 kg/m2 [facility] Oxygen saturation in Arterial blood by Pulse oximetry 2023-05-18 22:01:00 91 /min [facility] Systolic blood pressure 2023-01-04 02:07:00 164 mm[Hg] [facility] Diastolic blood pressure 2023-01-04 02:07:00 100 mm[Hg] [facility] Heart rate 2023-01-04 02:07:00 59 /min [facility] Body temperature 2023-01-04 02:07:00 36.61 Barb [facility] Respiratory rate 2023-01-04 02:07:00 16 /min [facility] Body height 2023-01-04 02:07:00 193 cm [facility] Body weight 2023-01-04 02:07:00 213.191 kg [facility] BMI 2023-01-04 02:07:00 57.21 kg/m2 [facility] Oxygen saturation in Arterial blood by Pulse oximetry 2023-01-04 02:07:00 98 /min [facility] Systolic blood pressure 2022-08-18 14:45:00 100 mm[Hg] [facility] Diastolic blood pressure 2022-08-18 14:45:00 69 mm[Hg] [facility] Heart rate 2022-08-18 14:44:00 64 /min [facility] Body temperature 2022-08-18 14:44:00 35.5 Barb [facility] Body height 2022-08-18 14:44:00 193 cm [facility] Body weight 2022-08-18 14:44:00 213.191 kg Univ [facility] BMI 2022-08-18 14:44:00 57.21 kg/m2 [facility] Systolic blood pressure 2022-08-04 15:38:00 118 mm[Hg] [facility] Diastolic blood pressure 2022-08-04 15:38:00 73 mm[Hg] [facility] Heart rate 2022-08-04 15:38:00 67 /min [facility] Body temperature 2022-08-04 15:38:00 36.67 Barb [facility] Body height 2022-08-04 15:38:00 193 cm [facility] Body weight 2022-08-04 15:38:00 213.191 kg [facility] BMI 2022-08-04 15:38:00 57.21 kg/m2 [facility] Oxygen saturation in Arterial blood by Pulse oximetry 2022-08-04 15:38:00 93 /min [facility] Systolic blood pressure 2021-06-12 19:40:00 138 mm[Hg] [facility] Diastolic blood pressure 2021-06-12 19:40:00 85 mm[Hg] [facility] Heart rate 2021-06-12 19:40:00 61 /min [facility] Respiratory rate 2021-06-12 19:40:00 14 /min [facility] Oxygen saturation in Arterial blood by Pulse oximetry 2021-06-12 19:40:00 94 /min [facility] Body temperature 2021-06-12 17:57:00 36.5 Barb [facility] Body weight 2021-06-12 17:57:00 192.779 kg Univ [facility] BMI 2021-06-12 17:57:00 51.73 kg/m2 [facility] Systolic blood pressure 2021-06-06 15:56:00 151 mm[Hg] [facility] Diastolic blood pressure 2021-06-06 15:56:00 77 mm[Hg] [facility] Heart rate 2021-06-06 15:56:00 73 /min [facility] Body temperature 2021-06-06 15:56:00 37.17 Barb [facility] Respiratory rate 2021-06-06 15:56:00 18 /min [facility] Body weight 2021-06-06 15:56:00 192.779 kg [facility] BMI 2021-06-06 15:56:00 51.73 kg/m2 [facility] Oxygen saturation in Arterial blood by Pulse oximetry 2021-06-06 15:56:00 99 /min [facility] Systolic blood pressure 2021-01-31 15:07:00 131 mm[Hg] [facility] Diastolic blood pressure 2021-01-31 15:07:00 77 mm[Hg] [facility] Heart rate 2021-01-31 15:07:00 68 [facility] Body height 2021-01-31 15:07:00 193 cm [facility] Body weight 2021-01-31 15:07:00 192.779 kg [facility] BMI 2021-01-31 15:07:00 51.73 kg/m2 [facility] Procedures Procedure Date / Time Performed Performing Clinicia n Source SLEEP STUDY DATA REPORT 2023-06-01 06:01:00 Doctor Unassigned, [place] [facility] SLEEP LAB RESULTS 2023-06-01 06:01:00 Jaylene Segura [facility] ASSIGNMENT OF BENEFITS 2023-05-18 21:41:40 Docto r Unassigned, [place]ar [facility] NOTICE OF PRIVACY PRACTICES 2023-01-04 02:02:33 Doctor Unassigned, [place] [facility] CONSENT/REFUSAL FOR DIAGNOSIS AND TREATMENT 2023-01-04 02:01:26 Doctor Unassigned, [place] [facility] CT ABDOMEN PELVIS WO CONTRAST 2021-06-12 19:35:00 Birdie Goodman [facility] COMP. METABOLIC PANEL ([id number]) 2021-06-12 18:37:00 Singer [facility] CBC WITH DIFF 2021-06-12 18:37:00 Birdie Goodman [facility] URINALYSIS 2021-06-12 18:37:00 [facility] CONSENT/REFUSAL FOR DIAGNOSIS AND TREATMENT 2021-06-12 17:56:19 Doctor Unassigned, [place] [facility] COVID-19 (ID NOW RAPID TESTING) 2021-06-06 18:19:00 Kaelyn Velazquez [facility] CT ABDOMEN PELVIS WO CONTRAST 2021-06-06 17:20:00 Kaelyn Velazquez [facility] LIPASE 2021-06-06 16:12:00 [facility] COMP. METABOLIC PANEL ([id number]) 2021-06-06 16:12:00 Singer [facility] CBC WITH DIFF 2021-06-06 16:12:00 Singer [facility] URINALYSIS 2021-06-06 16:12:00 [facility] CONSENT/REFUSAL FOR DIAGNOSIS AND TREATMENT 2021-06-06 15:53:56 Doctor Unassigned, [place] [facility] Encounters Start Date/Time End Date/Time Encounter Type Admission Type Attending [facility] Care Facility Care Department Encounter ID Source 2021-02-10 12:30:55 Emergency [facility] [id number] [facility] 2021-02-09 22:32:35 Emergency [facility] [id number] [facility] 2021-02-07 08:30:31 Emergency [facility] [id number] [facility] 2021-02-07 02:59:44 Emergency [facility] [id number] [facility] 2023-07-19 20:00:00 2023-07-19 20:00:00 Outpatient R [facility] [id number] [facility] 2023-06-14 00:00:00 2023-06-14 00:00:00 Telephone Jaylene Segura [facility] 1..840.114 350.1.13.10 4.2.7.2.686 [id number] [facility] 2023-06-03 10:00:00 2023-06-03 10:00:00 Outpatient R [facility] [id number] [facility] 2023-06-02 00:00:00 2023-06-02 00:00:00 Refill Jayelne Segura [facility] 1..840.114 350.1.13.10 4.2.7.2.686 [id number] [facility] 2023-06-01 14:30:00 2023-06-01 14:45:00 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 Visit [facility] Sleep Lab Zoraida Nixon [facility] 1..840.114 350.1.13.10 4.2.7.2.686 [id number] [facility] 2023-06-01 14:30:00 2023-06-01 14:30:00 Outpatient R ZORAIDA NIXON STRAHIL [facility] [id number] [facility] 2023-06-01 00:00:00 2023-06-01 00:00:00 Orders Only Doctor Unassigned, Bol[place]ar [facility] 1..840.114 350.1.13.10 4.2.7.2.686 [id number] [facility] 2023-05-18 15:45:00 2023-05-18 16:50:47 Outpatient R JAYLENE SEGURA [facility] [id number] [facility] 2023-05-18 15:45:00 2023-05-18 16:50:47 Office Visit Jaylene Segura [facility] LONG?[facility] 1.2840.114 350.1.13.10 4.2.7.2.686 [id number] [facility] 2023-05-18 00:00:00 2023-05-18 00:00:00 Orders Only Doctor Unassigned, [place]ar [facility] 1.2840.114 350.1.13.10 4.2.7.2.686 [id number] [facility] 2023-05-18 00:00:00 2023-05-18 00:00:00 Letter (Out) Jaylene Segura [facility] LONG?[facility] 1.2840.114 350.1.13.10 4.2.7.2.686 [id number] [facility] 2023-04-24 00:00:00 2023-04-24 00:00:00 Refill Jaylene Segura [facility] LONG?[facility] MEDICAL OFFICE BUILDING 1.2840.114 350.1.13.10 4.2.7.2.686 [id number] [facility] 2023-04-13 00:00:00 2023-04-13 00:00:00 Refill Jaylene Segura [facility] 1.2840.114 350.1.13.10 4.2.7.2.686 [id number] [facility] 2023-03-16 00:00:00 2023-03-16 00:00:00 Refill Jaylene Segura [facility] 1.2840.114 350.1.13.10 4.2.7.2.686 [id number] [facility] 2023-02-03 00:00:00 2023-02-03 00:00:00 Refill Jaylene Segura [facility] LONG?[facility] MED[facility] OFFICE BUILDING 1.2.840.114 350.1.13.10 4.2.7.2.686 [id number] [facility] 2023-01-03 21:10:00 2023-01-03 22:04:00 Emergency X BIRDIE GOODMAN RUST ERT [id number] [facility] 2023-01-03 21:10:00 2023-01-03 22:04:00 Emergency Singer [facility] 1.2.840.114 350.1.13.10 4.2.7.2.686 [id number] [facility] 2022-12-22 00:00:00 2022-12-22 00:00:00 Refill Jaylene Segura [facility] LONG?[facility] MEDICAL OFFICE BUILDING 1.2.840.114 350.1.13.10 4.2.7.2.686 [id number] [facility] 2022-11-17 00:00:00 2022-11-17 00:00:00 Refill Colton [facility] LONG?[facility] MED[facility] OFFICE BUILDING 1.2.840.114 350.1.13.10 4.2.7.2.686 [id number] [facility] 2022-10-15 00:00:00 2022-10-15 00:00:00 Refill Jaylene Segura [facility] LONG?[facility] MED[facility] OFFICE BUILDING 1.2.840.114 350.1.13.10 4.2.7.2.686 [id number] [facility] 2022-10-14 00:00:00 2022-10-14 00:00:00 Telephone Jaylene Segura [facility] LONG?[facility] OFFICE BUILDING 1.2.840.114 350.1.13.10 4.2.7.2.686 [id number] [facility] 2022-10-07 13:30:00 2022-10-07 13:30:00 Outpatient R ZORAIDA NIXON STRAMIEdil [facility] [id number] [facility] 2022-09-17 00:00:00 2022-09-17 00:00:00 Refill Jaylene Segura [facility] LONG?[facility] MEDICAL OFFICE BUILDING 1.840.114 350.1.13.10 4.2.7.2.686 [id number] [facility] 2022-09-05 00:00:00 2022-09-05 00:00:00 Refill Renee Michelle [facility] LONG?[facility] MED[facility] OFFICE BUILDING 1..840.114 350.1.13.10 4.2.7.2.686 [id number] [facility] 2022-08-18 09:45:00 2022-08-18 10:00:00 Office Visit Jaylene Segura [facility] LONG?[facility] MEDICAL OFFICE BUILDING 1.2.840.114 350.1.13.10 4.2.7.2.686 [id number] [facility] 2022-08-18 09:45:00 2022-08-18 09:45:00 Outpatient R COLTON JAYLENE [facility] [id number] [facility] 2022-08-18 00:00:00 2022-08-18 00:00:00 Letter (Out) VanesaJaylene weber [facility] BU[facility] 1.2.840.114 350.1.13.10 4.2.7.2.686 [id number] [facility] 2022-08-16 00:00:00 2022-08-16 00:00:00 Refjavier SreeolimpiaJaylene [facility] BUILDING 1.2.840.114 350.1.13.10 4.2.7.2.686 [id number] [facility] 2022-08-04 10:30:00 2022-08-04 11:06:26 Outpatient R RENEE MICHELLE [facility] [id number] [facility] 2022-08-04 10:30:00 2022-08-04 11:06:26 [facility] 1.2.840.114 350.1.13.10 4.2.7.2.686 [id number] [facility] 2022-08-04 00:00:00 2022-08-04 00:00:00 Letter (Out) Renee Michelle [facility] LONG?[facility] 1.2.840.114 350.1.13.10 4.2.7.2.686 [id number] [facility] 2022-07-16 00:00:00 2022-07-16 00:00:00 Refjavier Jaylene Segura [facility] BUILDING 1.2.840.114 350.1.13.10 4.2.7.2.686 [id number] [facility] 2022-06-03 00:00:00 2022-06-03 00:00:00 Ramone SreeclaudetteJaylene weber [facility] BUILDING 1.2.840.114 350.1.13.10 4.2.7.2.686 [id number] [facility] 2022-04-04 00:00:00 2022-04-04 00:00:00 Ramone SreeolimpiaJaylene [facility] BUILDING 1.2.840.114 350.1.13.10 4.2.7.2.686 [id number] [facility] 2022-02-20 00:00:00 2022-02-20 00:00:00 Refill Jaylene Segura [facility] BUILDING 1.2.840.114 350.1.13.10 4.2.7.2.686 [id number] [facility] 2022-02-20 00:00:00 2022-02-20 00:00:00 Rossy Segura [facility] 1.2.840.114 350.1.13.10 4.2.7.2.686 [id number] [facility] 2022-01-19 00:00:00 2022-01-19 00:00:00 Refill Jaylene Segura [facility] BUILDING 1.2.840.114 350.1.13.10 4.2.7.2.686 [id number] [facility] 2021-11-22 00:00:00 2021-11-22 00:00:00 Ramone Jaylene Segura [facility] BUILDING 1.2.840.114 350.1.13.10 4.2.7.2.686 [id number] [facility] 2021-11-15 00:00:00 2021-11-15 00:00:00 Viridianajavier Jaylene Segura [facility] BUILDING 1.2.840.114 350.1.13.10 4.2.7.2.686 [id number] [facility] 2021-07-19 00:00:00 2021-07-19 00:00:00 Ramone Sreeolimpia [facility] OFFICE BUILDING ONE 1.2.840.114 350.1.13.10 4.2.7.2.686 [id number] [facility] 2021-06-17 00:00:00 2021-06-17 00:00:00 Nessa Rankin [facility] BUILDING 1.2.840.114 350.1.13.10 4.2.7.2.686 [id number] [facility] 2021-06-12 12:00:00 2021-06-12 15:08:00 Emergency X GOODMAN BIRDIE RUST ERT [id number] [facility] 2021-06-12 12:00:00 2021-06-12 15:08:00 Emergency Birdie Goodman [facility] 1..840.114 350.1.13.10 4.2.7.2.686 [id number] [facility] 2021-06-06 10:00:00 2021-06-06 13:21:00 Emergency X Kaelyn VELAZQUEZ RUST ERT [id number] [facility] 2021-06-06 10:00:00 2021-06-06 13:21:00 Emergency Kaelyn Velazquez [facility] 1..840.114 350.1.13.10 4.2.7.2.686 [id number] [facility] 2021-05-15 00:00:00 2021-05-15 00:00:00 Jaylene Seay [facility] BUILDING 1.2.840.114 350.1.13.10 4.2.7.2.686 [id number] [facility] 2021-04-26 00:00:00 2021-04-26 00:00:00 Jaylene Seay [facility] OFFICE BUILDING ONE 1.2840.114 350.1.13.10 4.2.7.2.686 [id number] [facility] 2021-04-17 00:00:00 2021-04-17 00:00:00 Ramone Segura [facility] OFFICE BUILDING ONE 1.2840.114 350.1.13.10 4.2.7.2.686 [id number] [facility] 2021-03-16 00:00:00 2021-03-16 00:00:00 Ramone Balbuenaclaudettegus [facility] OFFICE BUILDING ONE 1.2840.114 350.1.13.10 4.2.7.2.686 [id number] [facility] 2021-02-15 00:00:00 2021-02-15 00:00:00 [facility] 1.2840.114 350.1.13.10 4.2.7.2.686 [id number] [facility] 2021-01-31 11:25:41 2021-01-31 12:05:41 Ancillary Visit Bucky Raymond [facility] Building 1.2.840.114 350.1.13.10 4.2.7.2.686 [id number] [facility] 2021-01-31 09:59:59 2021-01-31 10:39:35 Office Visit Colton [facility] Long?[facility] Building 1.2.840.114 350.1.13.10 4.2.7.2.686 [id number] [facility] 2021-01-31 10:00:00 2021-01-31 10:00:00 Outpatient R JAYLENE SEGURA [facility] [id number] [facility] 2021-01-23 13:58:30 2021-01-23 14:58:30 Ancillary Visit Bucky Raymond [facility] Building 1.2.840.114 350.1.13.10 4.2.7.2.686 [id number] [facility] 2021-01-16 14:28:43 2021-01-16 15:28:43 Ancillary Visit Bucky Raymond [facility] Building 1.284.114 350.1.13.10 4.2.7.2.686 [id number] [facility] 2021-01-15 15:00:00 2021-01-15 15:00:00 Outpatient R [facility] [id number] [facility] 2021-01-13 15:08:04 2021-01-14 08:06:50 Ancillary Visit Rola Kitchen [facility] Building 1.284.114 350.1.13.10 4.2.7.2.686 [id number] [facility] 2021-01-09 15:22:35 2021-01-09 16:22:35 Ancillary Visit Bucky Raymond [facility] Building 1.2.840.114 350.1.13.10 4.2.7.2.686 [id number] [facility] [facility]:00:00 2021-01-09 00:00:00 Jaylene Seay [facility] ER Office Building One 1.2.840.114 350.1.13.10 4.2.7.2.686 [id number] [facility] 2021-01-06 13:17:44 2021-01-06 14:17:44 [facility] 1..840.114 350.1.13.10 4.2.7.2.686 [id number] [facility] 2021-01-06 13:00:00 2021-01-06 13:00:00 Outpatient CESAR REYES [facility] [id number] [facility] 2021-01-01 16:43:06 2021-01-01 16:58:06 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, Ac[facility] Critical access hospitale?[facility] Office Building 1..840.114 350.1.13.10 4.2.7.2.686 [id number] [facility] 2021-01-01 15:52:15 2021-01-01 16:07:15 [facility] Building 1..840.114 350.1.13.10 4.2.7.2.686 [id number] [facility] 2021-01-01 16:00:00 2021-01-01 16:00:00 Outpatient JAYLENE CHARLES [facility] [id number] [facility] 2020-12-24 15:00:00 2020-12-24 15:00:00 Outpatient JAYLENE CHARLES [facility] [id number] [facility] 2020-12-23 00:00:00 2020-12-23 00:00:[address] [facility] Office Building One 1..840.114 350.1.13.10 4.2.7.2.686 [id number] [facility] 2020-12-18 08:30:00 2020-12-18 23:59:00 Hospital Encounter Nessa Felton [facility] 1..840.114 350.1.13.10 4.2.7.2.686 [id number] [facility] 2020-12-18 14:44:24 2020-12-18 15:38:44 Office Visit Nessa Felton [facility] 1.2.840.114 350.1.13.10 4.2.7.2.686 [id number] [facility] 2020-12-18 14:30:00 2020-12-18 14:30:00 Outpatient R NESSA FELTON [facility] [id number] [facility] 2020-12-03 00:00:00 2020-12-03 00:00:00 Orders Only Doctor Unassigned, [place] [facility] 1..840.114 350.1.13.10 4.2.7.2.686 [id number] [facility] 2020-11-26 14:30:00 2020-11-26 14:30:00 Outpatient JAYLENE CHARLES [facility] [id number] [facility] 2019-11-22 11:15:00 2019-11-22 11:15:00 Outpatient JAYLENE CHARLES [facility] [id number] [facility] 2019-11-13 20:00:00 2019-11-13 20:00:00 Outpatient R ZORAIDA NIXON STRAHIL [facility] [id number] [facility] 2019-11-10 14:00:00 2019-11-10 14:00:00 Outpatient R [facility] [id number] [facility] 2019-10-11 00:00:00 2019-10-11 00:00:00 Transition of Care Balta Brown 1.2.840.114 350.1.13.10 4.2.7.2.686 [id number] 2019-10-05 19:53:26 2019-10-10 16:15:00 Hospital Encounter Birdie Goodman [facility] 1.2.840.114 350.1.13.10 4.2.7.2.686 [id number] 2019-06-16 10:46:28 2019-06-16 12:29:00 Emergency X MANNY GONZALEZ RUST ERT [id number] [facility] 2019-06-16 10:46:28 2019-06-16 12:29:00 Emergency Manny Gonzalez [facility] 1.2.840.114 350.1.13.10 4.2.7.2.686 [id number] 2019-06-16 00:00:00 2019-06-16 00:00:00 Orders Only Doctor Unassigned, [place] [facility] 1.2.840.114 350.1.13.10 4.2.7.2.686 [id number] 2019-03-08 16:34:14 2019-03-16 17:05:00 Inpatient X MARIA SANTIAGO RUST FLAQUITO [id number] [facility] Results Test Description Test Time Test Comments Results Result Co mments Source [facility] WITH [id number] 18:59:07* Test Item Value Reference Range Interpretation Comme nts WBC (test code = 6690-2) See_Comment H [Automated messa ge] The system which generated this result transmitted reference range: 4.20 - 10.70 10*3/?L. The reference range was not used to interpret this result as normal/abnormal. RBC (test code = 789-8) See_Comment [Automated messa ge] The system which generated this result transmitted reference range: 4.26 - 5.52 10*6/?L. The reference range was not used to interpret this result as normal/abnormal. HGB (test code = 718-7) 14.3 g/dL 12.2-16.4 HCT (test code = 4544-3) 43.0 % 38.4-49.3 MCV (test code = 787-2) 95.1 fL 81.7-95.6 MCH (test code = 785-6) 31.6 pg 26.1-32.7 MCHC (test code = 786-4) 33.3 g/dL 31.2-35.0 RDW-SD (test code = 47510-4) 41.5 fL 38.5-51.6 RDW-CV (test code = 788-0) 11.9 % 12.1-15.4 L PLT (test code = 777-3) See_Comment [Automated messa ge] The system which generated this result transmitted reference range: 150 - 328 10*3/?L. The reference range was not used to interpret this result as normal/abnormal. MPV (test code = 70833-3) 11.0 fL 9.8-13.0 NRBC/100 WBC (test code = 9578916325) See_Comment [Automated [employer] ssage] The system which generated this result transmitted reference range: 0.0 - 10.0 /100 WBCs. The reference range was not used to interpret this result as normal/abnormal. NRBC x10^3 (test code = 6298109322) <0.01 See_Comment [Automated MATINAS BIOPHARMAa ge] The system which generated this result transmitted reference range: 10*3/?L. The reference range was not used to interpret this result as normal/abnormal. GRAN MAT (NEUT) % (test code = 770-8) 71.4 % IMM GRAN % (test code = 1257998253) 0.40 % LYMPH % (test code = 736-9) 17.0 % MONO % (test code = 5905-5) 8.1 % EOS % (test code = 713-8) 2.5 % BASO % (test code = 706-2) 0.6 % GRAN MAT x10^3(ANC) (test code = 7133843389) 7.67 10*3/uL 1.99-6.95 H IMM GRAN x10^3 (test code = 6162158673) 0.04 10*3/uL 0.00-0.06 LYMPH x10^3 (test code = 731-0) 1.82 10*3/uL 1.09-3.23 MONO x10^3 (test code = 742-7) 0.87 10*3/uL 0.36-1.02 EOS x10^3 (test code = 711-2) 0.27 10*3/uL 0.06-0.53 BASO x10^3 (test code = 704-7) 0.06 10*3/uL 0.01-0.09 Lab Interpretation (test code = 82075-3) [facility] Nciav4680-50-63 17:28:57* Test Item Value Reference Range Interpretation Comme nts NA (test code = 9203045275) 139 mmol/L 135-145 K (test code = 7603739954) 4.1 mmol/L 3.5-5.0 CL (test code = 7971055147) 102 mmol/L 98-108 CO2 TOTAL (test code = 6482112631) 24 mmol/L 23-31 AGAP (test code = 7641398671) 2-16 BUN (test code = 2876336172) 27 mg/dL 7-23 H GLUCOSE (test code = 6739499954) 97 mg/dL 70-110 CREATININE (test code = 0352182002) 1.93 mg/dL 0.60-1.25 H TOTAL BILI (test code = 5520293766) 0.5 mg/dL 0.1-1.1 CALCIUM (test code = 6397984472) 9.1 mg/dL 8.6-10.6 T PROTEIN (test code = 3266378404) 7.2 g/dL 6.3-8.2 ALBUMIN (test code = 6478785258) 4.3 g/dL 3.5-5.0 ALK PHOS (test code = 9112728131) 89 U/L 34-122 ALTv (test code = 1742-6) 17 U/L 5-50 AST(SGOT) (test code = 2631100852) 23 U/L 13-40 eGFR (test code = 8530624698) mL/min/1.73m2 TWAN (test code = TWAN) Association of Glomerular Filtration Rate (GFR) and Staging of Kidney Disease* + --+ --+ ------+| GFR (mL/min/1.73 m2) ?| With Kidney Damage ?| ?Without Kidney Damage+ --------+ --------+ +| ?>90 ?| ?Stage one ?| ? Normal ?+ ---+ ---+ -------+| ?60-89 ?| ?Stage two ?| ? Decreased GFR ? + --+ --+ ------+| ?30-59 ?| ?Stage three ?| ? Stage three ? + --+ --+ ------+| ?15-29 ?| ?Stage four ? | ? Stage four ?+ ---+ ---+ -------+| ?<15 (or dialysis) ? ?| ?Stage five ? | ? Stage five ?+ ---+ ---+ -------+ *Each stage assumes the associated GFR level has been in effect for at least three months. ?Stages 1 to 5, with or without kidney disease, indicate chronic kidney disease. Notes: Determination of stages one and two (with eGFR >59mL/min/1.73 m2) requires estimation of kidney damage for at least three months as defined by structural or functional abnormalities of the kidney, manifested by either:Pathological abnormalities or Markers of kidney damage (including abnormalities in the composition of the blood or urine or abnormalities in imaging tests). Lab Interpretation (test code = 75909-1) Abnormal [facility], Obfsi1853-08-04 17:28:37* Test Item Value Reference Range Interpretation Comme nts LIPASE (test code = 5159777752) 138 U/L 0-220 Lab Interpretation (test cod e = 93519-3) Normal [facility] with Psuttiyjxkcw9593-11-78 16:30:33* Test Item Value Reference Range Interpretation Comme nts WBC (test code = 6690-2) See_Comment [Automated [employer]] The system which generated this result transmitted reference range: 4.20 - 10.70 10*3/?L. The reference range was not used to interpret this result as normal/abnormal. RBC (test code = 789-8) See_Comment [Automated [employer]] The system which generated this result transmitted reference range: 4.26 - 5.52 10*6/?L. The reference range was not used to interpret this result as normal/abnormal. HGB (test code = 718-7) 14.2 g/dL 12.2-16.4 HCT (test code = 4544-3) 41.6 % 38.4-49.3 MCV (test code = 787-2) 95.6 fL 81.7-95.6 MCH (test code = 785-6) 32.6 pg 26.1-32.7 MCHC (test code = 786-4) 34.1 g/dL 31.2-35.0 RDW-SD (test code = 40771-5) 42.7 fL 38.5-51.6 RDW-CV (test code = 788-0) 12.2 % 12.1-15.4 PLT (test code = 777-3) See_Comment [Automated messa ge] The system which generated this result transmitted reference range: 150 - 328 10*3/?L. The reference range was not used to interpret this result as normal/abnormal. MPV (test code = 61597-3) 11.1 fL 9.8-13.0 NRBC/100 WBC (test code = 7087478074) See_Comment [Automated me ssage] The system which generated this result transmitted reference range: 0.0 - 10.0 /100 WBCs. The reference range was not used to interpret this result as normal/abnormal. NRBC x10^3 (test code = 6456438640) <0.01 See_Comment [Automated me ssage] The system which generated this result transmitted reference range: 10*3/?L. The reference range was not used to interpret this result as normal/abnormal. GRAN MAT (NEUT) % (test code = 770-8) 72.1 % IMM GRAN % (test code = 0468046773) 0.50 % LYMPH % (test code = 736-9) 14.7 % MONO % (test code = 5905-5) 8.7 % EOS % (test code = 713-8) 3.4 % BASO % (test code = 706-2) 0.6 % GRAN MAT x10^3(ANC) (test code = 7993473634) 6.40 10*3/uL 1.99-6.95 IMM GRAN x10^3 (test code = 3190072963) 0.04 10*3/uL 0.00-0.06 LYMPH x10^3 (test code = 731-0) 1.30 10*3/uL 1.09-3.23 MONO x10^3 (test code = 742-7) 0.77 10*3/uL 0.36-1.02 EOS x10^3 (test code = 711-2) 0.30 10*3/uL 0.06-0.53 BASO x10^3 (test code = 704-7) 0.05 10*3/uL 0.01-0.09 [facility] Notes Date/Time Note Provider Source 2023-04-13 08:03:39 [id number] YxP2rH/qwbYAzGq 6NvfM/Dk/ik0ncqGb265e7ldCG97X6883-2 04-13T08:03:39 Recent VisitsDate Type Provider Dept08/18/22 Office Visit Jyalene Segura MD [facility]08/04/22 Office Visit Renee Michelle FNP [facility] MedShowing recent visits within past 540 days with a meds authorizing provider and meeting all other requirementsFuture AppointmentsNo visits were found meeting these conditions.Showing future appointments within next 150 days with a meds authorizing provider and meeting all other requirementsLast refill wasDisp Refills Start End DAWCARVEDILOL 25 mg tablet 180 tablet 1 10/15/2022 -- NoSig: TAKE 1 TABLET BY MOUTH IN THE MORNING AND IN THE EVENING WITH MEALSSent to pharmacy as: carvediloL 25 mg tablet (COREG) 59046-3Ihswazbye encounter JphmHQ5430-82-30W35:04:02Telephone encounter NoteTXT1.2.840.695978.1.13.104.2.7. 2.793687|[id number] for patient jwyd91570-6McwsLVWOFVENXBGTcmoeberc C-CDA narrative [id number] R Leon [address] Zd[id number] 6RFXJRWCAJZVACEKUKWAHHA3515-58-97U9 8:04:021.2.840.920883.1.72.3.15|1.2 .840.166179.1.13.104.2.7.2.727879_1 [id number] Suki Mccarthy MA [facility] 2022-11-18 08:34:06 +q88ygbOayxmaT9NqTxr +gTPE7BX62ahsZQ 2GJqAy0gVOnkdt2NdHIrHM0aHvcJl3377-9 08:34:06 Images from the original note were not included.Requested Renewals Name from pharmacy: ELIQUIS 5MG TABLETS Will file in chart as: ELIQUIS 5 mg tablet Sig: TAKE 1 TABLET BY MOUTH IN THE MORNING AND EVENING TO PREVENT RECURRENCE OF A CLOT IN A DEEP VEIN Disp: 60 tablet Refills: 0 (Pharmacy requested: Not specified) Start: 11/17/2022 Class: eRX For: Acute deep vein thrombosis (DVT) of popliteal vein of left lower extremity Last ordered: 1 month ago (10/14/2022) by Jaylene Segura MD Last refill: 10/16/2022 Rx #: [id number]|1|0|1 Anti-coagulants Failed 11/17/2022 06:44 PM Protocol Details Cr in normal range and within 360 days Na in normal range and within 360 days K in normal range and within 360 days RBC in normal range and within 360 days WBC in normal range and within 360 days PLT in normal range and within 360 days HCT in normal range and within 360 days HGB in normal range and within 360 days Valid encounter within last 12 months To be filled at: [id number] - [place], [place] - [address] [facility] [address] [employer] Recent VisitsDate Type Provider Dept 08/18/22 Office Visit Jaylene Segura MD [facility] 08/04/22 Office Visit Cotta, Renee, DEMOGRAPHIC ANALYST [facility] Showing recent visits within past 540 days with a meds authorizing provider and meeting all other requirementsFuture AppointmentsNo visits were found meeting these conditions.Showing future appointments within next 150 days with a meds authorizing provider and meeting all other requirements 07552-6Zadsocmtc encounter BavyXL6859-47-19U09:34:17Telephone encounter NoteTXT1.2.840.538750.1.13.104.2.7. 2.937524|[id number] for patient [id number] M Fisher [address] Ti[id number] 8WMPMAFMVOJIWSRMZXLJRWT3889-21-03O3 8:34:171.2.840.535136.1.72.3.15|1.2 .840.049389.1.13.104.2.7.2.727879_1 [id number] Kezia Reyes [facility]"
[2023-07-10 07:53] LABS: Basophils % 0.6 % (0-1.3); Eosinophils % 4.3 % (0-4.4); Hematocrit 43.2 % (39.6-49.0); Hemoglobin 14.4 g/dL (13.6-17.9); Lymphocytes % 17.6 % (15.3-44.8); MCHC 33.2 g/dL (32.0-36.0); MCV 96.4 fL (80-100); MPV 9.2 fL (7.6-11.3); Monocytes % 7.3 % (3.3-12.3); Neutrophils % 70.2 % (41.7-73.7); Nucleated Red Blood Cells % 0.1 % (0-0); Platelets 185 thou/uL (152-406); RBC Red Blood Cell Count 4.49 M/uL (4.33-5.43); Red Cell Distribution Width 13.5 % (12.1-15.2)
[2023-07-10 07:54] LABS: Absolute Eosinophils 0.3 K/uL (0-0.5); Absolute Monocytes 0.4 K/uL (0.1-1.3); Absolute Neutrophil 4.1 K/uL (1.8-8.0); PT Prothrombin Time 12.9 SECONDS (9.5-12.5); Protime INR 1.18
[2023-07-10] MEDS ORDERED: ALBUTEROL 2.5 MG/3 ML NEB SOL ONE ×3 (08:00→10:22)
[2023-07-10] MEDS ORDERED: METHYLPREDNISOLONE 125 MG INJ ONE (08:01)
[2023-07-10] MEDS ORDERED: IPRATROPIUM BROM 0.5MG/2.5ML ONE (08:01)
[2023-07-10 08:14] LABS: Anion Gap 8.2 mEq/L (5.0-15.0); Potassium 4.2 mEq/L (3.5-5.1)
[2023-07-10 08:15] LABS: Albumin 3.3 g/dL (3.4-5.0); Albumin/Globulin Ratio 0.8 (1.1-1.8); Bilirubin Direct 0.1 mg/dL (0-0.2); Bilirubin Indirect, Calculated 0.3 mg/dL (0.2-0.8); Bilirubin Total 0.4 mg/dL (0.2-1.0); Globulin 4.1 g/dL (2.3-3.5); Magnesium 2.1 mg/dL (1.6-2.4); Protein, Total 7.4 g/dL (6.4-8.2); Troponin High Sensitivity 19.1 pg/mL (<58.9)
--- NOTE | 2023-07-10 08:25 | RAD REPORT ---
EXAM DESCRIPTION: Mirian Single View07/10/2023 8:10 am CLINICAL HISTORY: Cough COMPARISON: 2017 FINDINGS: Pulmonary vascular congestion The lungs appear clear of acute infiltrate. The heart is borderline enlarged
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
[2023-07-10] MEDS ORDERED: Magnesium Sulfate 2gm IVPB 2 G/50 ML BAG IV ONE (10:22)
[2023-07-10] MEDS ORDERED: ACETAMINOPHEN 325 MG TABLET PO PRN (10:34)
[2023-07-10] MEDS ORDERED: ONDANSETRON 4 MG/2 ML VIAL IV PRN (10:34)
--- NOTE | 2023-07-10 10:35 | RAD REPORT ---
EXAM DESCRIPTION: USExtrem Venous W Compress Bil07/10/2023 10:09 am CLINICAL HISTORY: Leg pain COMPARISON: none FINDINGS: The common femoral, superficial femoral, greater saphenous, and popliteal veins bilaterall y and right posterior tibial vein are compressible and demonstrate augmentation. Suboptimal evaluation of left posterior tibial vein secondary to body habitus and edema Doppler demonstrates good flow. A 2.5 centimeter left Kirby's cyst Grayscale, color and spectral analysis performed on all vessels IMPRESSION: No evidence of deep venous thrombosis involving either lower extremity. 2.5 centimeter left Kirby's cyst
[2023-07-10 11:04] VITALS: BMI 52.9
[2023-07-10 12:35] LABS: INFLUENZA A NAA NEGATIVE (NEGATIVE); SARS-COV-2 RT PCR NEGATIVE (NEGATIVE)
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
[2023-07-10] MEDS ORDERED: FUROSEMIDE 40 MG TABLET ONE (16:17)
[2023-07-10] MEDS: FUROSEMIDE 40 MG TABLET PO SCH (16:26)
[2023-07-10] MEDS: AZITHROMYCIN IV 500 MG in NA CHLORIDE 0.9% 250 ML IVPB SCH (20:45)
[2023-07-10] MEDS: predniSONE 20 MG TAB PO SCH (20:46)
[2023-07-10] MEDS: APIXABAN 5 MG TABLET PO SCH (20:46)
[2023-07-10] MEDS: ALBUTEROL 2.5 MG/3 ML NEB SOL NEB PRN (22:12)
[2023-07-11 04:41] LABS: Absolute Basophils 0.1 K/uL (0-0.5); Absolute Lymphocytes (CBC) 0.9 K/uL (0.7-4.9); Absolute Monocytes 0.6 K/uL (0.1-1.3); Absolute Neutrophil 10.4 K/uL (1.8-8.0); Basophils % 0.5 % (0-1.3); Hematocrit 43.3 % (39.6-49.0); Hemoglobin 14.1 g/dL (13.6-17.9); Lymphocytes % 7.4 % (15.3-44.8); MCH 31.7 pg (27.0-35.0); MCHC 32.5 g/dL (32.0-36.0); MCV 97.6 fL (80-100); MPV 9.7 fL (7.6-11.3); Monocytes % 5.2 % (3.3-12.3); Neutrophils % 86.9 % (41.7-73.7); Nucleated Red Blood Cells % 0.1 % (0-0); Platelets 211 thou/uL (152-406); RBC Red Blood Cell Count 4.43 M/uL (4.33-5.43); Red Cell Distribution Width 13.4 % (12.1-15.2)
[2023-07-11 05:10] LABS: Anion Gap 9.3 mEq/L (5.0-15.0); Magnesium 2.3 mg/dL (1.6-2.4); Potassium 4.3 mEq/L (3.5-5.1); Thyroid Stimulating Hormone 0.652 uIU/mL (0.358-3.740)
[2023-07-11 07:11] LABS: Band Neutrophils 4 % (0-1); Differential Total Cells Count 100; Lymphocytes 13 % (15-42); Monocytes 6 % (0-10); Platelet Estimate ADEQ; Segmented Neutrophils 77 % (40-80)
[2023-07-11 07:12] LABS: Blood Morphology Comment NOT SEEN (NOT SEEN)
[2023-07-11] MEDS: FUROSEMIDE 40 MG/4 ML VIAL IV SCH (09:17)
[2023-07-11] MEDS: carvediloL 12.5 MG TAB PO SCH (09:17)
[2023-07-11] MEDS: DULERA 200/5 (MOMETASONE/FORMOTEROL) INHALER IH SCH (09:54)
[2023-07-11] MEDS: ARFORMOTEROL TARTRATE 15 MCG/2 ML VIAL.NEB NEB SCH (09:55)
--- NOTE | 2023-07-11 10:00 | P.CNS ---
Date of Consult: 07/11/23 Reason for Consult: Hypoxemia Chief Complaint: Hypoxia, syncope History of Present Illness: Patient is 53 years of age of hypertension presented to the emergency room with a syncopal attack cough congestion for the past 8 days productive cough no prior history of pulmonary disorders used to smoke intermittently quite a while ago obstructive sleep apnea recently diagnosed awaiting results of his sleep study classic symptoms of sleep apnea with loud snoring excessive daytime somnolence apneic spells history of any other cardiopulmonary disorders Allergies No Known Allergies Allergy (Unverified 07/10/23 10:34) Home Medications: Apixaban [Eliquis] 5 mg PO DAILY 07/10/23 Carvedilol [Coreg] 25 mg PO DAILY 07/10/23 - Past Medical/Surgical History -: CHFunknown EF -: Hypertension -: History of DVT on chronic anticoagulation -: Kidney stones -: None Psychosocial/ Personal History: Lives at home with his - Social History Alcohol use: No CD- Drugs: No Caffeine use: Yes Place of Residence: Home Review of Systems 10-point ROS is otherwise unremarkable Physical Examination Temp Pulse Resp BP Pulse Ox 97.4 F 61 18 149/67 H 86 L 07/11/23 04:00 07/11/23 09:17 07/11/23 04:00 07/11/23 09:17 07/11/23 04:00 General: Alert, In no apparent distress, Oriented x3 Neck: Supple Respiratory: Clear to auscultation bilaterally Cardiovascular: No edema, Regular rate/rhythm, Normal S1 S2 Gastrointestinal: Normal bowel sounds, Soft and benign - Problems (1) Obesity hypoventilation syndrome Current Visit: Yes Status: Acute Plan: Patient is 53 years of age admitted with syncopal attack he has classic symptoms of obstructive sleep apnea sleep study has been done at home as per patient he shows severe obstructive sleep apnea needs to follow-up with his primary care physician this Wednesday he has underlying obesity induced obstructive asthma I will also added a bronchodilator steroids changed to p.o. Augmentin DC azithromycin count CBC is normal I also ordered a room air ABG I have added Dulera and Brovana. Room air sat was 86% pressure is not controlled add spironolactone instead of Lasix chest x-ray is clear patient has a history of DVTs on chronic anticoagulation but underlying cor pulmonale or congestive heart failure his BNP was less than 500
[2023-07-11 11:52] LABS: Blood Gas Oxyhemoglobin 83.9 % (94-97); Blood Gas THB 15.2 g/dl (12-18); Blood O2 Saturation 85.6 % (92-98.5)
--- NOTE | 2023-07-11 12:15 | P.PN ---
Date of Service: 07/11/23 Subjective: States he feels as if his breathing is significant improved Periodically not wearing oxygen due to nasal irritation Reports he has been told for many years every time he visits the hospital or his doctor that his oxygen level is very low in the high 80s Has never used home oxygen before ROS: 10 point ROS as noted above, otherwise negative Physical exam GEN: Alert, oriented, NAD HEENT: Normal conjunctiva, sclera anicteric CV: Regular rate and rhythm, no edema Pulm: Nonlabored respirations on nasal cannula oxygen ABD: Soft, nontender, nondistended MSK: No joint tenderness Integumentary: No rashes Neuro: Normal speech, normal affect Vitals reviewed Assessment: Acute hypoxic respiratory failure Syncope-posttussive Chronic CHFunknown EF Hypertension Sinus bradycardia Suspected sleep apnea Plan: Acute hypoxic respiratory failure Syncope-posttussive Patient with URI symptoms for the last 6 to 7 days Reports chills for 1 day to 3 days ago Hypoxic on room air, tolerating nasal cannula well Breath sounds with expiratory wheezing/rhonchi Seen by pulm-suspected obesity induced asthma Started on Dulera, ABG obtained May need home oxygen at discharge Doubt PE as patient is compliant with oral anticoagulationEliquis 5 mg twice daily and no DVT present bilaterally Unable to perform CT scan for further diagnosis given body habitus/machine imitations Will monitor on telemetry-did have 3.5-second pause while sleeping, troponin trended flat Chronic CHFunknown EF 3.5-second sinus pause Does not appear grossly overloaded at this time, switch to spironolactone by pulmonology Echocardiogram ordered, cardiology consulted given sinus pauses, bradycardia with sleeping Hypertension Sinus bradycardia Carvedilol dose reduced to 2.5 mg by mouth twice daily Suspected sleep apnea Had recent outpatient sleep study, awaiting results CPAP at night DVT PPX: Continue Eliquis Code status: Full Discharge Plan: Home Plan to discharge in: 72 Hours VTE: Code: Dispo: Time Spent Managing Pts Care (In Minutes): 35 <Genaro Clay - Last Filed: 07/11/23 12:15> Patient seen and examined on rounds this morning with [employer] COMPLIANCE COORDINATOR Obed. I performed a substantial part of the MDM during this patient's care today as noted above in the plan of care. I agree with plan of care as noted above with the following additions / corrections: feeling better intermittent bradycardia, sinus pause for ~3.5sec while sleeping recently completed at home sleep study, +sleep apnea has f/u sleep study to titrate CPAP CPAP ordered here counselled on importance of adherence cardio consulted echo ordered - to be done tomorrow pt denies having any prior echo done continue home eliquis patient states he had U/S of left leg with some concern for DVT but not definitive. He states his doctor said they were going to treat as if DVT given risk if they didn't wean o2 as tolerated; suspect will need home o2 <Renzo Mohr - Last Filed: 07/11/23 17:20>
[2023-07-11] MEDS: AMOX/K CLAV 875 MG TAB PO SCH (13:18)
[2023-07-11] MEDS: SPIRONOLACTONE 25 MG TABLET PO SCH (13:18)
[2023-07-12 07:57] LABS: Absolute Lymphocytes (CBC) 1.3 K/uL (0.7-4.9); Absolute Monocytes 0.4 K/uL (0.1-1.3); Absolute Neutrophil 8.2 K/uL (1.8-8.0); Basophils % 0.4 % (0-1.3); Eosinophils % 0.1 % (0-4.4); Hematocrit 43.7 % (39.6-49.0); Hemoglobin 14.4 g/dL (13.6-17.9); Lymphocytes % 13.2 % (15.3-44.8); MCH 32.2 pg (27.0-35.0); MCHC 32.9 g/dL (32.0-36.0); MPV 9.5 fL (7.6-11.3); Monocytes % 4.5 % (3.3-12.3); Neutrophils % 81.8 % (41.7-73.7); Platelets 199 thou/uL (152-406); RBC Red Blood Cell Count 4.46 M/uL (4.33-5.43); Red Cell Distribution Width 13.2 % (12.1-15.2)
[2023-07-12 08:06] LABS: Anion Gap 5.6 mEq/L (5.0-15.0); Magnesium 2.3 mg/dL (1.6-2.4); Potassium 4.6 mEq/L (3.5-5.1)
--- NOTE | 2023-07-12 11:28 | P.PN ---
Date of Service: 07/12/23 Subjective: Feeling better, less shortness of breath had bradycardia in to the 20s again overnight compliant with cpap overnight-stated it helped a lot ROS: 10 point ROS as noted above, otherwise negative Physical exam GEN: Alert, oriented, NAD HEENT: Normal conjunctiva, sclera anicteric CV: Regular rate and rhythm, no edema Pulm: Nonlabored respirations on nasal cannula oxygen ABD: Soft, nontender, nondistended MSK: No joint tenderness Integumentary: No rashes Neuro: Normal speech, normal affect Vitals reviewed Assessment: Acute hypoxic respiratory failure Syncope-posttussive Chronic CHFunknown EF Hypertension Sinus bradycardia Suspected sleep apnea Plan: Acute hypoxic respiratory failure Syncope-posttussive Patient with URI symptoms for the last 6 to 7 days Reports chills for 1 day Hypoxic on room air, tolerating nasal cannula well Seen by pulm-suspected obesity induced asthma Started on Dulera Doubt PE as patient is compliant with oral anticoagulationEliquis 5 mg twice daily and no DVT present bilaterally Unable to perform CT scan for further diagnosis given body habitus/machine imitations Will monitor on telemetry-did have 3.5-second pause while sleeping, troponin trended flat Likely to need home oxygen Chronic CHFunknown EF 3.5-second sinus pause Does not appear grossly overloaded at this time, switch to spironolactone by pulmonology Echocardiogram ordered, cardiology consulted given sinus pauses, bradycardia with sleeping Carvedilol discontinued 07/11, was on reduced dose before that during admissions Cardiology discussing need for possible pacemaker if there continued bradycardia/pauses despite holding beta georgette and using cpap Hypertension Sinus bradycardia DC carvedilol monitor on tele Suspected sleep apnea Had recent outpatient sleep study, awaiting results CPAP at night DVT PPX: Continue Eliquis Code status: Full Discharge Plan: Home Plan to discharge in: 24-48 hours Time Spent Managing Pts Care (In Minutes): 35
--- NOTE | 2023-07-12 12:28 | P.CNS ---
Date of Consult: 07/12/23 Chief Complaint: Hypoxia, syncope History of Present Illness: Patient with PMH of heart failure, hypertension and morbid obesity, presented with Syncope about bad cough spell, denies any history of syncope, denies any chest pain but report QUEZADA, patient was diagnosed with heart failure and he takes Lasix 80 BID but no cardiology follow up. Allergies No Known Allergies Allergy (Unverified 07/10/23 10:34) Home Medications: Apixaban [Eliquis] 5 mg PO DAILY 07/10/23 Carvedilol [Coreg] 25 mg PO DAILY 07/10/23 - Past Medical/Surgical History -: CHFunknown EF -: Hypertension -: History of DVT on chronic anticoagulation -: Kidney stones -: None Psychosocial/ Personal History: Lives at home with his - Social History Alcohol use: No CD- Drugs: No Caffeine use: Yes Place of Residence: Home Review of Systems 10-point ROS is otherwise unremarkable Physical Examination Temp Pulse Resp BP Pulse Ox 97.1 F 56 20 168/90 H 92 07/12/23 08:00 07/12/23 08:02 07/12/23 08:00 07/12/23 08:02 07/12/23 08:00 General: Alert, Oriented x3 HEENT: Atraumatic Neck: Supple Respiratory: Clear to auscultation bilaterally Cardiovascular: No edema, Normal S1 S2 Gastrointestinal: Normal bowel sounds - Problems (1) Syncope Current Visit: Yes Status: Acute Plan: Most likely vasovagal secondary to severe cough spell. (2) Hypertension Current Visit: Yes Status: Acute Plan: agree with lowering Coreg to 12.5 mg po BID add Losartan 50 mg daily. Continue Spirnolactone 25 mg BID (3) Bradycardia Current Visit: Yes Status: Acute Plan: Patient got morbid obesity so symptoms most likely secondary to JERAD, patient having sinus pauses during sleep becuase of the sleep apnea, patient will need CPAP at home and follow up with cardiology. (4) Chronic diastolic heart failure Current Visit: Yes Status: Acute Plan: currently euvolemic on exam. Continue Lasix 80 mg po BID.
--- NOTE | 2023-07-12 13:31 | P.PN ---
Subjective Date of Service: 07/12/23 Chief Complaint: Sleep apnea Subjective: Improving (Patient is doing much better is tolerating BiPAP history of for presume severe sleep apnea sleep study report is pending still remains hypoxic) Review of Systems Unremarkable Physical Examination - Vital Signs Temperature: 96.9 F Blood Pressure: 157/81 Pulse: 54 Respirations: 18 Pulse Ox (%): 93 - Physical Exam General: Alert, Oriented x3 Respiratory: Clear to auscultation bilaterally Cardiovascular: No edema, Regular rate/rhythm Gastrointestinal: Normal bowel sounds, Soft and benign Assessment And Plan - Current Problems (Diagnosis) (1) Obesity hypoventilation syndrome Current Visit: Yes Status: Acute Plan: Patient has obesity hypoventilation syndrome underlying obstructive sleep apnea hypoxic Hypecarbic respiratory failure and presumed obesity induced as thmaPatient may need home oxygen with their noninvasive ventilator I have requested sleep study from his primary care physicianDiscontinue prednisone continue with the inhalers
--- NOTE | 2023-07-12 13:39 | EKG ---
Test Date: 2023-07-11 Test Time: 16:50:45 Head Chopper: JR Oliva MEASUREMENT RESULTS: Intervals: Rate: 47 WI: 184 QRSD: 102 QT: 442 QTc: 391 [place]: P: 61 WI: 184 QRS: -18 T: 40 INTERPRETIVE STATEMENTS: Marked sinus bradycardia Low voltage QRS Abnormal ECG Compared to ECG 07/10/2023 06:33:03 Low QRS voltage now present Electronically Signed On 07-12-23 13:36:28 CDT by Jordan Hinkle
--- NOTE | 2023-07-12 13:45 | EKG ---
Test Date: 2023-07-10 Test Time: 06:33:03 Special Investigator: SIENA MEASUREMENT RESULTS: Intervals: Rate: 44 NH: 192 QRSD: 96 QT: 426 QTc: 364 [place]: P: 59 NH: 192 QRS: 7 T: 58 INTERPRETIVE STATEMENTS: Marked sinus bradycardia Abnormal ECG Compared to ECG 02/28/2019 17:00:52 Sinus rhythm no longer present Atrial premature complex(es) no longer present Electronically Signed On 07-12-23 13:38:07 CDT by Jordan Hinkle
[2023-07-12] MEDS: BENZONATATE 100 MG CAP PO PRN (20:00)
[2023-07-13 06:56] LABS: Absolute Basophils 0.1 K/uL (0-0.5); Absolute Eosinophils 0.1 K/uL (0-0.5); Absolute Lymphocytes (CBC) 2.5 K/uL (0.7-4.9); Absolute Monocytes 0.7 K/uL (0.1-1.3); Basophils % 0.6 % (0-1.3); Eosinophils % 1.2 % (0-4.4); Hematocrit 44.6 % (39.6-49.0); Hemoglobin 14.7 g/dL (13.6-17.9); Lymphocytes % 23.9 % (15.3-44.8); MCH 32.4 pg (27.0-35.0); MCHC 32.9 g/dL (32.0-36.0); MCV 98.3 fL (80-100); MPV 10.2 fL (7.6-11.3); Monocytes % 7.1 % (3.3-12.3); Neutrophils % 67.2 % (41.7-73.7); Platelets 184 thou/uL (152-406); RBC Red Blood Cell Count 4.54 M/uL (4.33-5.43)
--- NOTE | 2023-07-13 07:15 | ECHO ---
HEIGHT: 6 ft 4 in WEIGHT: 435 lb 0 oz DATE OF STUDY: 07/12/[address]: Genaro Clay NP 2-DIMENSIONAL: YES M.MODE: YES DOPPLER: YES COLOR FLOW: YES TDS: YES PORTABLE: YES DEFINITY: BUBBLE STUDY: DIAGNOSIS: CONGESTIVE HEART FAILURE/ SYNCOPE CARDIAC HISTORY: CATHERIZATION: NO SURGERY: NO PROSTHETIC VALVE: NO PACEMAKER: N O MEASUREMENTS (cm) DIASTOLIC (NORMALS) SYSTOLIC (NORMALS) IVSd (0.6-1.2) LA Diam (1.9-4.0) LVEF % LVIDd (3.5-5.7) LVIDs (2.0-3.5) %FS % LVPWd (0.6-1.2) Ao Diam (2.0-3.7) 2 DIMENSIONAL ASSESSMENT: RIGHT ATRIUM: POOR STUDY LEFT ATRIUM: POOR STUDY RIGHT VENTRICLE: POOR STUDY LEFT VENTRICLE: POOR STUDY TRICUSPID VALVE: POOR STUDY MITRAL VALVE: POOR STUDY PULMONIC VALVE: POOR STUDY AORTIC VALVE: POOR STUDY PERICARDIAL EFFUSION: POOR STUDY AORTIC ROOT: POOR STUDY LEFT VENTRICULAR WALL MOTION: DOPPLER/COLOR FLOW: COMMENTS: 1. POOR STUDY 2. UNABLE TO EVALUATE DUE TO POOR IMAGES TECHNOLOGIST: NOA THRASHER
[2023-07-13 07:33] LABS: Anion Gap 5.8 mEq/L (5.0-15.0)
[2023-07-13 07:34] LABS: Magnesium 2.4 mg/dL (1.6-2.4); Potassium 3.8 mEq/L (3.5-5.1)
[2023-07-13] MEDS: AMLODIPINE 5 MG TAB PO SCH (09:44)
--- NOTE | 2023-07-13 17:30 | P.PN ---
Subjective Date of Service: 07/13/23 Chief Complaint: Sleep apnea Subjective: No new changes Review of Systems 10-point ROS is otherwise unremarkable Physical Examination - Vital Signs Temperature: 97.5 F Blood Pressure: 156/76 Pulse: 57 Respirations: 18 Pulse Ox (%): 92 - Physical Exam General: Alert, Oriented x3 HEENT: Atraumatic Respiratory: Clear to auscultation bilaterally Cardiovascular: No edema, Normal S1 S2 Gastrointestinal: Normal bowel sounds Assessment And Plan - Current Problems (Diagnosis) (1) Syncope Current Visit: Yes Status: Acute Plan: Most likely vasovagal secondary to severe cough spell. (2) Hypertension Current Visit: Yes Status: Acute Plan: Coreg to 12.5 mg po BID Norvasc 5 mg daily. Continue Spirnolactone 25 mg BID (3) Bradycardia Current Visit: Yes Status: Acute Plan: Patient got morbid obesity so symptoms most likely secondary to JERAD, patient having sinus pauses during sleep becuase of the sleep apnea, patient will need CPAP at home and follow up with cardiology. (4) Chronic diastolic heart failure Current Visit: Yes Status: Acute Plan: currently euvolemic on exam. Continue Lasix 80 mg po BID.
--- NOTE | 2023-07-13 18:46 | P.DS ---
Admission Date: 07/10/23 Discharge Date: 07/13/23 Disposition: ROUTINE DISCHARGE Discharge Condition: GOOD Reason for Admission: Sleep apnea Vital Signs/Physical Exam: Temp Pulse Resp BP Pulse Ox 97.5 F 57 18 156/76 H 92 07/13/23 17:30 07/13/23 17:30 07/13/23 17:30 07/13/23 17:30 07/13/23 17:30 Laboratory Data at Discharge: WBC 10.40 thou/uL (4.3-10.9) 07/13/23 05:51 Hgb 14.7 g/dL (13.6-17.9) 07/13/23 05:51 Hct 44.6 % (39.6-49.0) 07/13/23 05:51 Plt Count 184 thou/uL (152-406) 07/13/23 05:51 PT 12.9 SECONDS (9.5-12.5) H 07/10/23 07:40 INR 1.18 07/10/23 07:40 Sodium 139 mEq/L (136-145) 07/13/23 05:51 Potassium 3.8 mEq/L (3.5-5.1) D 07/13/23 05:51 BUN 28 mg/dL (7-18) H 07/13/23 05:51 Creatinine 1.32 mg/dL (0.70-1.30) H 07/13/23 05:51 Glucose 109 mg/dL (74-106) H 07/13/23 05:51 Magnesium 2.4 mg/dL (1.6-2.4) 07/13/23 05:51 Total Bilirubin 0.4 mg/dL (0.2-1.0) 07/10/23 07:40 AST 26 U/L (15-37) 07/10/23 07:40 ALT 30 U/L (16-61) 07/10/23 07:40 Alkaline Phosphatase 68 U/L (45-117) 07/10/23 07:40 Triglycerides 52 mg/dL (<150) 07/11/23 04:03 Cholesterol 163 mg/dL (<200) 07/11/23 04:03 HDL Cholesterol 40 mg/dL (40-60) 07/11/23 04:03 Cholesterol/HDL Ratio 4.08 03/31/24 04:03 Home Medications: Apixaban [Eliquis] 5 mg PO DAILY 07/10/23 Amlodipine [Norvasc*] 5 mg PO DAILY 30 Days #30 tab 07/13/23 Amox/Clavulanate [Augmentin 875-125 Tab*] 875 mg PO BID 10 Days #20 tab 07/13/23 Apixaban [Eliquis] 5 mg PO BID 07/13/23 Benzonatate [Tessalon Perle*] 100 mg PO TID PRN 5 Days #15 cap 07/13/23 Mometasone/Formoterol [Dulera 200 Mcg/5 Mcg Inhaler] 2 puff IH BID 30 Days #1 inhaler 07/13/23 Salmeterol Xinafoate [Serevent Diskus] 50 mcg IH DAILY 30 Days #1 diskus 07/13/23 Spironolactone [Aldactone*] 25 mg PO BID 30 Days #60 tab 07/13/23 New Medications: Spironolactone [Aldactone*] 25 mg PO BID 30 Days #60 tab Amox/Clavulanate [Augmentin 875-125 Tab*] 875 mg PO BID 10 Days #20 tab Mometasone/Formoterol [Dulera 200 Mcg/5 Mcg Inhaler] 2 puff IH BID 30 Days #1 inhaler Amlodipine [Norvasc*] 5 mg PO DAILY 30 Days #30 tab Salmeterol Xinafoate [Serevent Diskus] 50 mcg IH DAILY 30 Days #1 diskus Benzonatate [Tessalon Perle*] 100 mg PO TID PRN 5 Days #15 cap PRN Reason: Cough Physician Discharge Instructions: 1. Please call and schedule a follow-up appointment with your PCP in 3-5 days - Please follow-up with your PCP for medication refills/adjustments -Changes made to your blood pressure medicine, please follow-up with your PCP and cardiology for further management 2. Please call and schedule a follow-up appointment with Dr. Colvin for a sleep study in one week 3. Please call and schedule follow-up appointment with Dr. Ragland in 2 weeks 4. Continue heart healthy diet 5. No activity restrictions 6. Continue to use the NIV 7. Return to ED if symptoms worsen Home non invasive ventilator and home oxygen: [facility] ph: [phone] [email or web address] Diet: AHA Activity: Ad marcelo Followup: Michele Colvin MD [ACTIVE - CAN ADMIT] - Mason Ragland MD [ACTIVE - CAN ADMIT] - Denilson Quinteros MD [Primary Care Provider] -
[2023-07-14] MEDS: HYDRALAZINE HCL 20 MG/ML VIAL IV PRN (00:45)
[2023-07-14] MEDS ORDERED: ALPRAZOLAM 0.25 MG TABLET PO PRN (04:37)
[2023-07-14] MEDS ORDERED: TRAZODONE 50 MG TABLET PO PRN (04:45)
[2023-07-14] MEDS: ALPRAZOLAM 0.5 MG TABLET PO PRN (04:54)
[2023-07-14 06:57] LABS: Magnesium 2.3 mg/dL (1.6-2.4)
[2023-07-14 07:09] LABS: Absolute Basophils 0.1 K/uL (0-0.5); Absolute Eosinophils 0.3 K/uL (0-0.5); Absolute Lymphocytes (CBC) 1.7 K/uL (0.7-4.9); Absolute Monocytes 0.7 K/uL (0.1-1.3); Absolute Neutrophil 6.6 K/uL (1.8-8.0); Basophils % 0.6 % (0-1.3); Hematocrit 43.9 % (39.6-49.0); Hemoglobin 14.5 g/dL (13.6-17.9); Lymphocytes % 18.2 % (15.3-44.8); MCH 32.4 pg (27.0-35.0); MCHC 33.1 g/dL (32.0-36.0); MPV 9.9 fL (7.6-11.3); Monocytes % 7.4 % (3.3-12.3); Neutrophils % 70.8 % (41.7-73.7); Platelets 186 thou/uL (152-406); RBC Red Blood Cell Count 4.49 M/uL (4.33-5.43); Red Cell Distribution Width 13.8 % (12.1-15.2)
[2023-07-14 09:48] VITALS: BP 139/63; TEMP 97.1; O2SAT 88
--- NOTE | 2023-07-14 12:07 | P.PN ---
Subjective Date of Service: 07/13/23 Chief Complaint: Hypoxic hypercapnic respiratory failure Subjective: Improving (Is improving doing well tolerating BiPAP new complaints sleeping better) Review of Systems Unremarkable Physical Examination - Vital Signs Temperature: 97.1 F Blood Pressure: 139/63 Pulse: 57 Respirations: 19 Pulse Ox (%): 91 - Physical Exam General: Alert, Oriented x3 Respiratory: Clear to auscultation bilaterally Cardiovascular: No edema, Regular rate/rhythm, Normal S1 S2 Gastrointestinal: Normal bowel sounds, Soft and benign Assessment And Plan - Current Problems (Diagnosis) (1) Obesity hypoventilation syndrome Current Visit: Yes Status: Acute Plan: Patient admitted with obesity hypoventilation syndrome hypoxic hypercarbic respiratory failure doing very well with BiPAP machine he is scheduled to have an NIV and oxygen delivered at home do an overnight pulse oximetry on NIV in about 2 weeks to evaluate for continued need for oxygen before discharge continue with spironolactone and inhaled bronchodilators she may have obesity induced asthma need outpatient pulmonary function test sleep study reviewed patient has severe sleep apnea renal function is improving oxygenation has improved to 88% on room air normal thyroid function test
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
--- NOTE | 2023-07-14 17:42 | P.PN ---
Date of Service: 07/13/23 Subjective: On nasal cannula during examination, no coughing Preparing for discharge, oxygen and NIV needed to be delivered to home prior to discharge ROS: 10 point ROS as noted above, otherwise negative Physical exam GEN: No acute distress, AAOx3, calm HEENT: Normal conjunctiva, sclera anicteric CV: Regular rate and rhythm, no edema, S1-S2 present Pulm: Nonlabored respirations on nasal cannula oxygen ABD: Soft on palpation, nontender, nondistended MSK: No joint tenderness Integumentary: No rashes Neuro: Normal speech, normal affect Vitals reviewed Assessment: Acute hypoxic respiratory failure Syncope-posttussive Chronic CHFunknown EF Hypertension Sinus bradycardia Suspected sleep apnea Plan: Acute hypoxic respiratory failure Syncope-posttussive Patient with URI symptoms for 6 to 7 days 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 for 1 day Hypoxic on room air, tolerating nasal cannula well Seen by pulm-suspected obesity induced asthma Started on Dulera Doubt PE as patient is compliant with oral anticoagulationEliquis 5 mg twice daily and no DVT present bilaterally Unable to perform CT scan for further diagnosis given body habitus/machine imitations Will monitor on telemetry-Bradycardic, troponin trended flat home oxygen and NIV ordered Chronic CHFunknown EF 3.5-second sinus pause Does not appear grossly overloaded at this time, switch to spironolactone by pulmonology Echocardiogram ordered, cardiology consulted given sinus pauses, bradycardia with sleeping Carvedilol discontinued 07/11 Cardiology following, using cpap Hypertension Sinus bradycardia DC carvedilol monitor on tele Suspected sleep apnea Had recent outpatient sleep study, awaiting results CPAP at night DVT PPX: Continue Eliquis Code status: Full Discharge Plan: Home- awaiting oxygen and NIV delivery prior to discharge
== END 2023-07-14 12:48 | disposition home or self-care (01) | DRG 189 ==
LOC: ER 07:17 → ERHOLD 09:03 → 4TH 17:29
PROVIDERS: ADMIT Hospitalist; ATTEND Internal Medicine
PROC: 5A09457 Assistance with Respiratory Ventilation, 24-96 Consecutive Hours, Continuous Positive Airway Pressure (ICD-10-PCS; principal; 2023-07-11)
PROC: 4A033R1 Measurement of Arterial Saturation, Peripheral, Percutaneous Approach (ICD-10-PCS; 2023-07-11)
DX: J96.01 Acute respiratory failure with hypoxia (principal); Z68.43 Body mass index [BMI] 50.0-59.9, adult; E66.2 Morbid (severe) obesity with alveolar hypoventilation; I50.32 Chronic diastolic (congestive) heart failure; I11.0 Hypertensive heart disease with heart failure; J45.909 Unspecified asthma, uncomplicated; R55 Syncope and collapse; R00.1 Bradycardia, unspecified; Z11.52 Encounter for screening for COVID-19; Z79.01 Long term (current) use of anticoagulants; Z79.02 Long term (current) use of antithrombotics/antiplatelets; Z86.718 Personal history of other venous thrombosis and embolism; Z87.891 Personal history of nicotine dependence
CPT/HCPCS: 0240U; 36415; 36600; 71045; 80048; 80061; 80076; 82805; 83735; 83880; 84439; 84443; 84484; 85025; 85610; 93005; 93306; 93970; 94640; 94660; 94760; 96374; 96375; 99285; J0360; J1940; J2930; J3475; J3535; J7050; J7512; J7605; J7613; J7644

== ENCOUNTER 2024-02-27 17:17 | Inpatient (IN) | payer BC ==
--- OUTSIDE RECORDS SUMMARY | 2024-02-27 17:21 | XMS REPORT | Continuity of Care Document ---
Author Name Unknown Address [address] [facility] [address] [place] [address] [facility] thconnect Address [address] [facility] [address] [place] [address] Care Team Providers Care Senior Web Analyst Name Role Phone JAYLENE SEGURA Primary Care Physician Mami JAYLENE Earl Attending Clinician Nathan Segura MD, Jaylene Zuñiga Attending Clinician + [phone] López CHAMPAGNE, Iliana Solo Attending Clinician Unavail able SRIRAM HUGHES Attending Clinician Unavailable Lara CHAUDHARI, David Hoff Attending Clinician [phone] Sriram Hughes MD Attending Clinician [phone] Jaylene Segura MD Attending Clinician + [phone] [facility] Attending Clinician Zoraida Sandy MD Attending Clinician + [phone] ZORAIDA NIXON Attending Clinician ZORAIDA Sandy Attending Clinician Susi holder Doctor Unassigned, [place] Attending Clinician U DUSTY Walls Attending Clinician Unavailable Dusty Correia DO Attending Clinician [phone] Renee Rivera Attending Clinician [phone] RENEE MICHELLE Attending Clinician Unavailable Rory CHAUDHARI, Diane KGatito Attending Clinician + [phone] Kaelyn DUDLEY Attending Clinician Unavailable Kaelyn Nolasco Attending Clinician [phone] Segundo HELIOTHERAPIST, Marjorie Art Attending Clinician Unavail able Cesar Luo MD Attending Clinician [phone] Praveen Delgado PT, Rola Attending Clinician Un available CESAR LUO Attending Clinician Unavailabl e Lab, Ang - Db Attending Clinician Unavailable DIANE FELTON Attending Clinician Unavailajay Brown RN, Balta Moss Attending Clinician Unavail able Katlin Rosenthal MD Attending Clinician [phone] MANNY MACIAS Attending Clinician UnavailManny Cruz Attending Clinician [phone] MARIA SANTIAGO Attending Clinician Unavailable SRIRAM HUGHES Admitting Clinician Unavailable Sriram Hughes MD Admitting Clinician [phone] DUSTY CORREIA Admitting Clinician Unavailable Kaelyn DUDLEY Admitting Clinician Unavailable Katlin Rosenthal MD Admitting Clinician [phone] MANNY MACIAS Admitting Clinician UnavailMARIA Bates Admitting Clinician Unavailable Payers Payer Name Policy Type Policy Number Effective Date Expirati on Date Source [facility] [id number] 2017 00:00:00 Problems Condition Name Condition Details Condition Category Status Onset Date Resolution Date Last Treatment Date Treating Clinician Comments Source Pain of left lower extremity Pain of left lower extremity Disease Active 2023-04 00:00: 00 [facility] Acute cough Acute cough Disease Active 08-04 00:00: 00 [facility] Snoring Snoring Disease Active 08-04 00:00: 00 [facility] Class 3 drug-induc ed obesity with serious comorbidit y and body mass index (BMI) of 50.0 to 59.9 in adult Class 3 drug-induc ed obesity with serious comorbidit y and body mass index (BMI) of 50.0 to 59.9 in adult Disease Active 08-04 00:00: 00 [facility] Acute cough Acute cough Disease Active 4- 00:00: 00 [facility] Viral infection Viral infection Disease Active 4- 00:00: 00 [facility] Urinary incontinen ce, nocturnal enuresis Urinary incontinen ce, nocturnal enuresis Disease Active 4- 00:00: 00 [facility] PVC (premature ventricula r contractio n) PVC (premature ventricula r contractio n) Disease Active 8- 00:00: 00 [facility] PVC (premature ventricula r contractio n) PVC (premature ventricula r contractio n) Disease Active 8- 00:00: 00 [facility] Hypokalemi a Hypokalemi a Disease Active 8 00:00: 00 [facility] Cellulitis of left leg Cellulitis of left leg Disease Active 8 00:00: 00 [facility] Chronic diastolic congestive heart failure Chronic diastolic congestive heart failure Disease Active 10-09 00:00: 00 [facility] Cellulitis Cellulitis Disease Active 10-05 00:00: 00 [facility] Essential hypertensi on Essential hypertensi on Disease Active 10-05 00:00: 00 [facility] Dyslipidem ia Dyslipidem ia Disease Active 10-05 00:00: 00 [facility] Stage 3 chronic kidney disease Stage 3 chronic kidney disease Disease Active 10-05 00:00: 00 [facility] History of DVT (deep vein thrombosis ) History of DVT (deep vein thrombosis ) Disease Active 10-05 00:00: 00 [facility] Elevated troponin I level Elevated troponin I level Disease Active 10-05 00:00: 00 [facility] TIERRA (acute kidney injury) TIERRA (acute kidney injury) Disease Active 2018-04 00:00: 00 [facility] DVT (deep venous thrombosis ) DVT (deep venous thrombosis ) Disease Active 2018-04 00:00: 00 [facility] TIERRA (acute kidney injury) TIERRA (acute kidney injury) Disease Active 2018-04 00:00: 00 [facility] Cellulitis of left lower extremity Cellulitis of left lower extremity Disease Active 2018-04 00:00: 00 [facility] Pneumonia Pneumonia Disease Active 2018-04 00:00: 00 [facility] Morbid obesity with body mass index of 50 or higher Morbid obesity with body mass index of 50 or higher Disease Active 2018-04 00:00: 00 [facility] Allergies, Adverse Reactions, Alerts Allergy Name Allergy Type Status Severity Reaction(s) Onset Date Inactive Date Treating Clinician Comments Source NO KNOWN ALLERGIE S Drug Class Active [facility] Social History Social Habit Start Date Stop Date Quantity Comments Source Gender identity [facility] function 2024-02-24 00:00:00 2024-02-24 00:00:00 [facility] Alcoholic beverage intake 2024-02-24 00:00:00 2024-02-24 00:00:00 Ex-drinker (finding) [facility] Cigarettes smoked current (pack per day) - Reported 2023-08-24 00:00:00 2023-08-24 00:00:00 [facility] Cigarette pack-years 2023-08-24 00:00:00 2023-08-24 00:00:00 [facility] Tobacco use and exposure 2023-08-24 00:00:00 2023-08-24 00:00:00 Former smokeless tobacco user [facility] Alcohol intake 2023-05-04 00:00:00 2023-05-04 00:00:00 Ex-drinker (finding) [facility] Exposure to SARS-CoV-2 (event) 2022-08-08 00:00:00 2022-08-18 09:27:00 Not sure [facility] History SDOH Food Worry 2019-03-09 00:00:00 2019-03-09 00:00:00 1 [facility] History SDOH Food Scarcity 2019-03-09 00:00:00 2019-03-09 00:00:00 1 [facility] History SDOH Transport Med 2019-03-09 00:00:00 2019-03-09 00:00:00 2 [facility] History SDOH Transport Non-Med 2019-03-09 00:00:00 2019-03-09 00:00:00 2 [facility] History of tobacco use 2019-03-06 00:00:00 Chews Tobacco [facility] Sex assigned at 1970 00:00:00 1970 00:00:00 [facility] Smoking Status Start Date Stop Date Source Ex-smoker 2023-08-24 00:00:00 2023-08-24 [facility] Ordered Medication Name Filled Medication Name Start Date Stop Date Current Medication? Ordering Clinician Indication Dosage Frequency Signature (SIG) Comments Components Source traMADoL 50 mg tablet 2023-04 00:00: 00 03-03 05:59 :00 Yes [id number] 50mg Take 1 tablet by mouth every 6 (six) hours as needed (pain) for up to 7 days. Indication s: acute pain [facility] rivaroxaban (XARELTO) tablet 15 mg 2023-04 02:00: 00 Yes 15mg 15 mg, Oral, BID, First dose on Wed02/18/24 at 2000, Until Discontinu ed, Routine [facility] rivaroxaban 15 mg tablet 2023-04 00:00: 00 03-21 05:59 :00 Yes [id number] 15mg Take 1 tablet by mouth in the morning and 1 tablet in the evening. Do all this for 30 days. Indication s: history of deep vein thrombosis [facility] linezolid 600 mg tablet 2023-04 00:00: 00 03-01 05:59 :00 Yes [id number] 600mg Take 1 tablet by mouth every 12 (twelve) hours for 10 days. [facility] amoxicillin -clavulanat e 875-125 mg per tablet 2023-04 00:00: 00 03-01 05:59 :00 Yes [id number] 1{tbl} Take 1 tablet by mouth in the morning and 1 tablet in the evening. Do all this for 10 days. [facility] spironolact one (ALDACTONE) tablet 25 mg 2023-04 15:00: 00 02-18 20:32 :00 No 25mg 25 mg, Oral, DAILY, First dose on Wed02/18/24 at 0900, Until Discontinu ed, Routine [facility] furosemide (LASIX) injection 80 mg 2023-04 14:00: 00 02-18 20:32 :00 No 80mg 80 mg, Slow IV Push, Q12H, First dose on Wed02/18/24 at 0800, Until Discontinu ed, Routine [facility] vancomycin (VANCOCIN/X ELLIA) 1,250 mg in 250 mL sterile water IV Piggyback 2023-04 09:30: 00 02-18 20:32 :00 No 1250mg 1,250 mg, IV Piggyback, Q12H ABX, 4 doses, First dose (after last reorder) on Wed02/18/24 at 0330, Last dose on Wed02/19/24 at 1530, Administer over 90 Minutes, 250 mL, Reason for Anti-Infec tive: Documented Infection, Documented Infection Site: Skin / Soft Tissue, Duration of Therapy: 7 days [facility] ampicillin- sulbactam (UNASYN) 3 g in NaCl 0.9% (NS) 100 mL MINI-BAG 2023-04 05:00: 00 02-18 20:32 :00 No 3g 3 g, IV Piggyback, Q8H ABX, First dose (after last reorder) on Wed02/17/24 at 2300, Until Discontinu ed, Administer over 30 Minutes, 100 mL, Reason for Anti-Infec tive: Documented Infection, Documented Infection Site: Skin / Soft Tissue, Duration of Therapy: 7 days [facility] furosemide (LASIX) injection 40 mg 2023-04 03:00: 00 02-17 02:19 :00 No 40mg 40 mg, Slow IV Push, ONCE, 1 dose, On Wed02/17/24 at 2100, Routine [facility] amLODIPine (NORVASC) tablet 5 mg 2023-04 02:00: 00 02-18 20:32 :00 No 5mg 5 mg, Oral, BID, First dose on Verena 02/17/24 at 1999, Until Discontinu ed, Routine [facility] apixaban (ELIQUIS) tablet 5 mg 2023-04 02:00: 00 02-17 23:03 :12 No 5mg 5 mg, Oral, BID, First dose on Verena 02/17/24 at 1999, Until Discontinu ed, Routine, Indication s: DVT/PE [facility] ondansetron (ZOFRAN (PF)) injection 4 mg 2023-04 23:19: 49 02-18 20:32 :00 No 4mg [facility] HYDROcodone -acetaminop hen (NORCO 5) tablet 1 tablet 2023-04 23:19: 41 02-18 20:32 :00 No 1{tbl} 1 tablet, Oral, Q6HPRN, Starting on Verena 02/17/24 at 1719, Until 02/19/24 at 1432, Routine, Pain (scale 4-6) [facility] acetaminoph en (TYLENOL) tablet 650 mg 2023-04 23:19: 36 02-18 20:32 :00 No 650mg [facility] vancomycin (VANCOCIN) 1,000 mg in NaCl 0.9% (NS) 250 mL VIAL-MATE IV piggyback 2023-04 21:15: 00 02-16 22:35 :00 No 1000mg 1,000 mg, IV Piggyback, ONCE, 1 dose, On Verena 02/17/24 at 1515, Administer over 60 Minutes, 250 mL, Reason for Anti-Infec tive: Documented Infection, Documented Infection Site: Skin / Soft Tissue, Duration of Therapy: Once (ED) [facility] morpHINE (4 mg/mL) injection 6 mg 2023-04 20:45: 00 02-16 20:45 :00 No 6mg 6 mg, Slow IV Push, ONCE, 1 dose, On Verena 02/17/24 at 1445, STAT [facility] ampicillin- sulbactam (UNASYN) 3 g in NaCl 0.9% (NS) 100 mL MINI-BAG 2023-04 20:30: 00 02-16 21:30 :00 No 3g 3 g, IV Piggyback, ONCE, 1 dose, On Verena 02/17/24 at 1430, Administer over 30 Minutes, 100 mL, Reason for Anti-Infec tive: Documented Infection, Documented Infection Site: Skin / Soft Tissue, Duration of Therapy: Once (ED) [facility] furosemide (LASIX) injection 40 mg 2023-04 20:30: 00 02-16 20:45 :00 No 40mg 40 mg, IV Push, ONCE, 1 dose, On Verena 02/17/24 at 1430, KACY [facility] ELIQUIS 5 mg tablet 2023-04 00:00: 00 02-18 00:00 :00 No [id number] TAKE 1 TABLET BY MOUTH IN THE MORNING AND EVENING TO PREVENT RECURRENCE OF A CLOT IN A DEEP VEIN [facility] ELIQUIS 5 mg tablet 2023-04 0- 00:00: 00 Yes [id number] [id number] TAKE 1 TABLET BY MOUTH IN THE MORNING AND EVENING TO PREVENT RECURRENCE OF A CLOT IN A DEEP VEIN [facility] ELIQUIS 5 mg tablet 0 8-19 00:00: 00 01-10 00:00 :00 No [id number] 9108 TAKE 1 TABLET BY MOUTH IN THE MORNING AND EVENING TO PREVENT RECURRENCE OF A CLOT IN A DEEP VEIN [facility] ELIQUIS 5 mg tablet 0 6-26 00:00: 00 11-28 00:00 :00 No [id number] 9108 TAKE 1 TABLET BY MOUTH IN THE MORNING AND EVENING TO PREVENT RECURRENCE OF A CLOT IN A DEEP VEIN [facility] ELIQUIS 5 mg tablet 5-29 00:00: 00 Yes [id number] 9108 TAKE 1 TABLET BY MOUTH IN THE MORNING AND EVENING TO PREVENT RECURRENCE OF A CLOT IN A DEEP VEIN [facility] amLODIPine 5 mg tablet 5-14 00:00: 00 Yes [id number] 5mg Take 1 tablet by mouth every morning. [facility] ELIQUIS 5 mg tablet 4-25 00:00: 00 09-07 00:00 :00 No [id number] 9108 TAKE 1 TABLET BY MOUTH IN THE MORNING AND EVENING TO PREVENT RECURRENCE OF A CLOT IN A DEEP VEIN [facility] ELIQUIS 5 mg tablet - 00:00: 00 Yes [id number] 9108 TAKE 1 TABLET BY MOUTH IN THE MORNING AND EVENING TO PREVENT RECURRENCE OF A CLOT IN A DEEP VEIN [facility] ELIQUIS 5 mg tablet - 00:00: 00 06-02 00:00 :00 No [id number] 9108 TAKE 1 TABLET BY MOUTH IN THE MORNING AND EVENING TO PREVENT RECURRENCE OF A CLOT IN A DEEP VEIN [facility] CARVEDILOL 25 mg tablet - 00:00: 00 08-23 00:00 :00 No [id number] TAKE 1 TABLET BY MOUTH IN THE MORNING AND IN THE EVENING WITH MEALS [facility] ELIQUIS 5 mg tablet 2022-04- 00:00: 00 04-26 00:00 :00 No [id number] 9108 TAKE 1 TABLET BY MOUTH IN THE MORNING AND EVENING TO PREVENT RECURRENCE OF A CLOT IN A DEEP VEIN [facility] ELIQUIS 5 mg tablet 2022-04 0 00:00: 00 Yes [id number] 9108 TAKE 1 TABLET BY MOUTH IN THE MORNING AND EVENING TO PREVENT RECURRENCE OF A CLOT IN A DEEP VEIN [facility] cefTRIAXone (ROCEPHIN) 350 mg/mL in Lidocaine 1 % injection 500 mg 01-04 03:30: 00 01-04 02:43 :00 No 500mg 500 mg, Intramuscu lar, ONCE, 1 dose, On 01/03/23 at 2230, KACY
Re ason for Anti-Infec tive: Empiric Therapy for Suspected Infection< br>Empiric Therapy Site: Skin / Soft tissue
Duration of therapy: 72 hours [facility] cephALEXin (KEFLEX) 500 mg capsule 01-03 00:00: 00 01-11 04:59 :00 No [id number] 500mg Take 1 capsule by mouth in the morning and 1 capsule at noon and 1 capsule in the evening. Do all this for 7 days. [facility] sulfamethox azole-trime thoprim 800-160 mg per tablet 01-03 00:00: 00 01-11 04:59 :00 No [id number] 1{tbl} Take 1 tablet by mouth in the morning and 1 tablet in the evening. Do all this for 7 days. [facility] ELIQUIS 5 mg tablet 12 00:00: 00 02-03 00:00 :00 No [id number] 9108 TAKE 1 TABLET BY MOUTH IN THE MORNING AND EVENING TO PREVENT RECURRENCE OF A CLOT IN A DEEP VEIN [facility] ELIQUIS 5 mg tablet 809 00:00: 00 Yes [id number] 9108 TAKE 1 TABLET BY MOUTH IN THE MORNING AND EVENING TO PREVENT RECURRENCE OF A CLOT IN A DEEP VEIN [facility] CARVEDILOL 25 mg tablet 06 00:00: 00 04-13 00:00 :00 No TAKE 1 TABLET BY MOUTH IN THE MORNING AND IN THE EVENING WITH MEALS [facility] apixaban (ELIQUIS) 5 mg tablet 05 00:00: 00 Yes [id number] 5mg Take 1 tablet by mouth in the morning and 1 tablet in the evening. Indication s: treatment to prevent recurrence of a clot in a deep vein [facility] LORATADINE 10 mg tablet 6-08 00:00: 00 08-23 00:00 :00 No [id number] TAKE 1 TABLET BY MOUTH EVERY DAY IN THE MORNING [facility] LORATADINE 10 mg tablet 0 09-06 00:00: 00 Yes [id number] TAKE 1 TABLET BY MOUTH EVERY DAY IN THE MORNING [facility] amoxicillin 875 mg tablet -09 00:00: 00 05-18 00:00 :00 No [id number] 875mg Take 1 tablet by mouth in the morning and 1 tablet in the evening. [facility] ELIQUIS 5 mg tablet 08-16 00:00: 00 10-14 00:00 :00 No [id number] 9108 TAKE 1 TABLET BY MOUTH TWICE DAILY [facility] loratadine (CLARITIN) 10 mg tablet 08-04 00:00: 00 09-06 00:00 :00 No [id number] 10mg Take 1 tablet by mouth in the morning. [facility] benzonatate 200 mg capsule 08-04 00:00: 08-12 04:59 :00 No [id number] 200mg Take 1 capsule by mouth 3 (three) times daily as needed for Cough for up to 7 days. [facility] apixaban (ELIQUIS) 5 mg tablet 07-17 00:00: 00 08-16 22:43 :58 No [id number] 9108 TAKE 1 TABLET BY MOUTH TWICE DAILY [facility] ELIQUIS 5 mg tablet 2021-04 00:00: 00 07-17 00:00 :00 No [id number] 9108 TAKE 1 TABLET BY MOUTH TWICE DAILY [facility] carvediloL 25 mg tablet 2021-04 1-11 00:00: 00 10-15 00:00 :00 No 25mg Take 1 tablet by mouth in the morning and 1 tablet in the evening. Take with meals. [facility] ELIQUIS 5 mg tablet 2021-04 0-10 00:00: 00 04-07 00:00 :00 No [id number] 9108 TAKE 1 TABLET BY MOUTH TWICE DAILY [facility] FUROSEMIDE 80 mg tablet 15 00:00: 00 Yes [id number] TAKE 1 TABLET BY MOUTH EVERY MORNING AND EVERY EVENING [facility] ELIQUIS 5 mg tablet 8-08 00:00: 00 01-19 00:00 :00 No [id number] 9108 TAKE 1 TABLET BY MOUTH TWICE DAILY [facility] ELIQUIS 5 mg tablet 07-21 00:00: 00 Yes [id number] 9108 TAKE 1 TABLET BY MOUTH TWICE DAILY [facility] SPIRONOLACT ONE 25 mg tablet 06-18 00:00: 00 Yes [id number] TAKE 1 TABLET BY MOUTH EVERY DAY [facility] FENTanyl PF (SUBLIMAZE (PF)) injection 50 mcg 06-12 19:15: 00 06-12 18:36 :00 No 50ug 50 mcg, Slow IV Push, ONCE, 1 dose, On Verena 06/12/21 at 1315, STAT [facility] NaCl 0.9% (NS) bolus infusion 1,000 mL 06-12 19:00: 00 06-12 19:35 :00 No 1000mL at 999 mL/hr, 1,000 mL, IV Piggyback, ONCE, 1 dose, On [facility] 06/12/21 at 1300, STAT [facility] ondansetron (ZOFRAN (PF)) injection 4 mg 06-12 18:00: 00 06-12 18:36 :00 No 4mg 4 mg, Slow IV Push, ONCE, 1 dose, On Verena 06/12/21 at 1200, Routine [facility] ondansetron 4 mg disintegrat ing tablet 06-12 00:00: 00 08-18 00:00 :00 No [id number] 4mg Take 1 tablet by mouth every 8 (eight) hours as needed for Nausea and Vomiting (N/V). [facility] HYDROcodone -acetaminop hen (NORCO) 10-325 mg tablet 06-12 00:00: 00 06-20 05:59 :00 No [id number] .5{tbl} Take 0.5-1 tablets by mouth every 6 (six) hours as needed for Pain (scale 7-10) for up to 7 days. Indication s: acute pain [facility] tamsulosin (FLOMAX) capsule 0.4 mg 06-07 15:00: 00 Yes .4mg 0.4 mg, Oral, DAILY, First dose on 06/07/21 at 0900, Until Discontinu ed, Routine [facility] NaCl 0.9% (NS) bolus infusion 1,000 mL 06-06 19:15: 00 06-06 19:20 :00 No 1000mL at 999 mL/hr, 1,000 mL, IV Infusion, ONCE, 1 dose, On Wed06/06/21 at 1315, STAT [facility] acetaminoph en-codeine 300-30 mg tablet 06-06 00:00: 00 08-23 00:00 :00 No [id number] 1{tbl} Take 1 tablet by mouth every 4 (four) hours as needed for Pain (scale 4-6). Indication s: acute pain [facility] tamsulosin 0.4 mg 24 hr capsule 06-06 00:00: 00 08-18 00:00 :00 No [id number] .4mg Take 1 capsule by mouth at bedtime. [facility] FUROSEMIDE 80 mg tablet 05-15 00:00: 00 11-24 00:00 :00 No [id number] TAKE 1 TABLET BY MOUTH EVERY MORNING AND EVERY EVENING [facility] ELIQUIS 5 mg tablet 04-30 00:00: 00 07-21 00:00 :00 No [id number] TAKE 1 TABLET BY MOUTH TWICE DAILY [facility] CARVEDILOL 25 mg tablet 04-17 00:00: 00 02-20 00:00 :00 No TAKE 1 TABLET BY MOUTH TWICE DAILY WITH MEALS [facility] ELIQUIS 5 mg tablet 2020-04 00:00: 00 04-30 00:00 :00 No [id number] 9108 TAKE 1 TABLET BY MOUTH TWICE DAILY [facility] FUROSEMIDE 80 mg tablet 2020-04 00:00: 00 05-15 00:00 :00 No [id number] TAKE 1 TABLET BY MOUTH EVERY MORNING AND EVERY EVENING [facility] CARVEDILOL 25 mg tablet 01-09 00:00: 00 04-17 00:00 :00 No TAKE 1 TABLET BY MOUTH TWICE DAILY WITH MEALS [facility] traMADoL 50 mg tablet 01-01 00:00: 00 08-18 00:00 :00 No [id number] 50mg Take 1 tablet by mouth every 6 (six) hours as needed for Pain (scale 4-6). Indication s: chronic pain [facility] ELIQUIS 5 mg tablet 12-23 00:00: 00 03-17 00:00 :00 No [id number] 9108 TAKE 1 TABLET BY MOUTH TWICE DAILY [facility] spironolact one 25 mg tablet 12-18 00:00: 00 03-19 05:59 :00 No [id number] 25mg Take 1 tablet by mouth daily for 90 days. [facility] silver sulfADIAZIN E 1 % cream 11-20 00:00: 00 08-18 00:00 :00 No [id number] Apply to area(s) daily. [facility] nystatin 100,000 unit/gram powder 11-19 00:00: 00 08-18 00:00 :00 No [id number] Apply to area(s) 2 (two) times daily. [facility] FUROSEMIDE 80 mg tablet 11-18 00:00: 00 02-17 00:00 :00 No [id number] TAKE 1 TABLET BY MOUTH EVERY MORNING AND EVERY EVENING [facility] Vital Signs Vital Name Observation Time Observation Value Comments S ource Systolic blood pressure 2024-02-24 21:00:00 139 mm[Hg] [facility] Diastolic blood pressure 2024-02-24 21:00:00 90 mm[Hg] [facility] Heart rate 2024-02-24 21:00:00 94 /min [facility] Body temperature 2024-02-24 21:00:00 36.33 Barb [facility] Body weight 2024-02-24 21:00:00 219.541 kg [facility] BMI 2024-02-24 21:00:00 58.91 kg/m2 [facility] Oxygen saturation in Arterial blood by Pulse oximetry 2024-02-24 21:00:00 93 /min [facility] Systolic blood pressure 2024-02-19 17:10:00 168 mm[Hg] [facility] Diastolic blood pressure 2024-02-19 17:10:00 87 mm[Hg] [facility] Heart rate 2024-02-19 17:10:00 63 /min [facility] Body temperature 2024-02-19 17:10:00 36.11 Barb [facility] Respiratory rate 2024-02-19 17:10:00 20 /min [facility] Oxygen saturation in Arterial blood by Pulse oximetry 2024-02-19 17:10:00 92 /min [facility] Body weight 2024-02-18 00:24:00 224.512 kg [facility] BMI 2024-02-18 00:24:00 60.25 kg/m2 [facility] Body height 2024-02-17 19:24:00 193 cm [facility] Systolic blood pressure 2023-08-24 20:12:00 142 mm[Hg] [facility] Diastolic blood pressure 2023-08-24 20:12:00 100 mm[Hg] [facility] Heart rate 2023-08-24 20:11:00 74 /min [facility] Body temperature 2023-08-24 20:11:00 36.11 Barb [facility] Body height 2023-08-24 20:11:00 193 cm [facility] Body weight 2023-08-24 20:11:00 225.438 kg [facility] BMI 2023-08-24 20:11:00 60.50 kg/m2 [facility] Oxygen saturation in Arterial blood by Pulse oximetry 2023-08-24 20:11:00 93 /min [facility] Systolic blood pressure 2023-05-18 22:02:00 144 mm[Hg] [facility] Diastolic blood pressure 2023-05-18 22:02:00 77 mm[Hg] [facility] Heart rate 2023-05-18 22:01:00 90 /min [facility] Body temperature 2023-05-18 22:01:00 37 Barb [facility] Body height 2023-05-18 22:01:00 193 cm [facility] Body weight 2023-05-18 22:01:00 223.623 kg [facility] BMI 2023-05-18 22:01:00 60.01 kg/m2 [facility] Oxygen saturation in Arterial blood by Pulse oximetry 2023-05-18 22:01:00 91 /min [facility] Systolic blood pressure 2023-01-04 02:07:00 164 mm[Hg] [facility] Diastolic blood pressure 2023-01-04 02:07:00 100 mm[Hg] [facility] Heart rate 2023-01-04 02:07:00 59 /min [facility] Body temperature 2023-01-04 02:07:00 36.61 Barb [facility] Respiratory rate 2023-01-04 02:07:00 16 /min [facility] Body height 2023-01-04 02:07:00 193 cm [facility] Body weight 2023-01-04 02:07:00 213.191 kg [facility] BMI 2023-01-04 02:07:00 57.21 kg/m2 [facility] Oxygen saturation in Arterial blood by Pulse oximetry 2023-01-04 02:07:00 98 /min [facility] Systolic blood pressure 2022-08-18 14:45:00 100 mm[Hg] [facility] Diastolic blood pressure 2022-08-18 14:45:00 69 mm[Hg] [facility] Heart rate 2022-08-18 14:44:00 64 /min [facility] Body temperature 2022-08-18 14:44:00 35.5 Barb [facility] Body height 2022-08-18 14:44:00 193 cm [facility] Body weight 2022-08-18 14:44:00 213.191 kg [facility] BMI 2022-08-18 14:44:00 57.21 kg/m2 [facility] Systolic blood pressure 2022-08-04 15:38:00 118 mm[Hg] [facility] Diastolic blood pressure 2022-08-04 15:38:00 73 mm[Hg] [facility] Heart rate 2022-08-04 15:38:00 67 /min [facility] Body temperature 2022-08-04 15:38:00 36.67 Barb [facility] Body height 2022-08-04 15:38:00 193 cm [facility] Body weight 2022-08-04 15:38:00 213.191 kg [facility] BMI 2022-08-04 15:38:00 57.21 kg/m2 [facility] Oxygen saturation in Arterial blood by Pulse oximetry 2022-08-04 15:38:00 93 /min [facility] Systolic blood pressure 2021-06-12 19:40:00 138 mm[Hg] [facility] Diastolic blood pressure 2021-06-12 19:40:00 85 mm[Hg] [facility] Heart rate 2021-06-12 19:40:00 61 /min [facility] Respiratory rate 2021-06-12 19:40:00 14 /min [facility] Oxygen saturation in Arterial blood by Pulse oximetry 2021-06-12 19:40:00 94 /min [facility] Body temperature 2021-06-12 17:57:00 36.5 Barb [facility] Body weight 2021-06-12 17:57:00 192.779 kg [facility] BMI 2021-06-12 17:57:00 51.73 kg/m2 [facility] Systolic blood pressure 2021-06-06 15:56:00 151 mm[Hg] [facility] Diastolic blood pressure 2021-06-06 15:56:00 77 mm[Hg] [facility] Heart rate 2021-06-06 15:56:00 73 /min [facility] Body temperature 2021-06-06 15:56:00 37.17 Barb [facility] Respiratory rate 2021-06-06 15:56:00 18 /min [facility] Body weight 2021-06-06 15:56:00 192.779 kg [facility] BMI 2021-06-06 15:56:00 51.73 kg/m2 [facility] Oxygen saturation in Arterial blood by Pulse oximetry 2021-06-06 15:56:00 99 /min [facility] Systolic blood pressure 2021-01-31 15:07:00 131 mm[Hg] [facility] Diastolic blood pressure 2021-01-31 15:07:00 77 mm[Hg] [facility] Heart rate 2021-01-31 15:07:00 68 /min [facility] Body height 2021-01-31 15:07:00 193 cm [facility] Body weight 2021-01-31 15:07:00 192.779 kg [facility] BMI 2021-01-31 15:07:00 51.73 kg/m2 [facility] Procedures Procedure Date / Time Performed Performing Clinicia n Source MAGNESIUM 2024-02-19 09:41:00 Sriram Hughes [facility] BASIC METABOLIC PANEL (NA, K, CL, CO2, GLUCOSE, BUN, CREATININE, CA) 2024-02-19 09:41:00 Sriram Hughes [facility] CBC WITH DIFF 2024-02-19 09:41:00 Sriram [facility] N-TERMINAL PRO-BNP 2024-02-19 09:41:00 Sriram Hughes [facility] VANCOMYCIN RANDOM LEVEL 2024-02-18 17:16:00 Belkis Mckeon [facility] DUPLEX VENOUS LEG LEFT - BY VASCULAR LAB 2024-02-18 16:39:38 Sriram Hughes [facility] HEPATIC FUNCTION PANEL (27773) (ALB,T.PRO,BILI T,BU/BC,ALT,AST,ALK PHOS) 2024-02-18 10:36:00 Sriram Hughes [facility] BASIC METABOLIC PANEL (NA, K, CL, CO2, GLUCOSE, BUN, CREATININE, CA) 2024-02-18 10:36:00 Sriram Hughes [facility] CBC WITH DIFF 2024-02-18 10:36:00 [facility] COMP. METABOLIC PANEL (96172) 2024-02-17 20:07:00 David Bermudez [facility] CBC WITH DIFF 2024-02-17 20:07:00 [facility] SLEEP STUDY DATA REPORT 2023-06-01 06:01:00 Doctor Unassigned, [place] [facility] SLEEP LAB RESULTS 2023-06-01 06:01:00 Jaylene Segura [facility] ASSIGNMENT OF BENEFITS 2023-05-18 21:41:40 Docto r Unassigned, [place] [facility] NOTICE OF PRIVACY PRACTICES 2023-01-04 02:02:33 Doctor Unassigned, [place] [facility] CONSENT/REFUSAL FOR DIAGNOSIS AND TREATMENT 2023-01-04 02:01:26 Doctor Unassigned, [place] [facility] CT ABDOMEN PELVIS WO CONTRAST 2021-06-12 19:35:00 Dusty Correia [facility] COMP. METABOLIC PANEL ([id number]) 2021-06-12 18:37:00 Dusty Correia [facility] CBC WITH DIFF 2021-06-12 18:37:00 Singer Dusty [facility] URINALYSIS 2021-06-12 18:37:00 [facility] CONSENT/REFUSAL FOR DIAGNOSIS AND TREATMENT 2021-06-12 17:56:19 Doctor Unassigned, [place] [facility] COVID-19 (ID NOW RAPID TESTING) 2021-06-06 18:19:00 Kaelyn Dudley [facility] CT ABDOMEN PELVIS WO CONTRAST 2021-06-06 17:20:00 Kaelyn Dudley [facility] LIPASE 2021-06-06 16:12:00 Dusty Correia [facility] COMP. METABOLIC PANEL ([id number]) 2021-06-06 16:12:00 Dusty Correia [facility] CBC WITH DIFF 2021-06-06 16:12:00 Dusty Correia [facility] URINALYSIS 2021-06-06 16:12:00 Dusty Correia [facility] CONSENT/REFUSAL FOR DIAGNOSIS AND TREATMENT 2021-06-06 15:53:56 Doctor Unassigned, [place] [facility] Encounters Start Date/Time End Date/Time Encounter Type Admission Type Attending Clinicians Care Facility Care Department Encounter ID Source 2021-02-10 12:30:55 Emergency [facility] [id number] [facility] 2021-02-09 22:32:35 Emergency [facility] [id number] [facility] 2021-02-07 08:30:31 Emergency [facility] [id number] [facility] 2021-02-07 02:59:44 Emergency [facility] [id number] [facility] 2024-02-24 14:30:00 2024-02-24 15:00:00 Office Visit Jaylene Segura EdCounts include 234 beds at the [facility] 1..840.114 350.1.13.10 4.2.7.2.686 [id number] [id number] [facility] 2024-02-24 14:30:00 2024-02-24 14:30:00 Outpatient R JAYLENE SEGURA [facility] [id number] [facility] 2024-02-21 00:00:00 2024-02-21 14:37:55 Transition of Care Iliana Dawn Kristi L [address] [address] 1..840.114 350.1.13.10 4.2.7.2.686 [id number] [facility] 2024-02-17 13:36:00 2024-02-19 14:27:00 Inpatient X OVILLE, SRIRAM [facility] [id number] [facility] 2024-02-17 13:36:00 2024-02-19 14:27:00 Hospital Encounter David Bermudez Sriram Hughes [facility] 1..840.114 350.1.13.10 4.2.7.2.686 [id number] [facility] 2024-01-10 00:00:00 2024-01-11 11:43:24 Refjavier Segura [facility] LONG?[facility] OFF[facility] BUILDING 1..840.114 350.1.13.10 4.2.7.2.686 [id number] [facility] 2023-12-06 11:30:00 2023-12-06 11:30:00 Outpatient JAYLENE CHARLES [facility] [id number] [facility] 2023-11-30 15:30:00 2023-11-30 15:30:00 Outpatient JAYLENE CHARLES [facility] [id number] [facility] 2023-11-26 00:00:00 2023-11-29 13:10:27 Refjavier Segura [facility] LONG?[facility] OFF[facility] BUILD[facility] 1..840.114 350.1.13.10 4.2.7.2.686 [id number] 044 [id number] [facility] 2023-09-07 00:00:00 2023-09-08 07:44:05 Ramone Segura [facility] 1..840.114 350.1.13.10 4.2.7.2.686 [id number] 044 [id number] [facility] 2023-09-03 00:00:00 2023-09-06 08:34:21 Telephone Jaylene Segura [facility] LONG?[facility] OFF[facility] BUILD[facility] 1.2.840.114 350.1.13.10 4.2.7.2.686 [id number] 044 [id number] [facility] 2023-08-24 00:00:00 2023-08-24 16:59:05 Telephone Jaylene Segura [facility] LONG?[facility] 1.2.840.114 350.1.13.10 4.2.7.2.686 [id number] [facility] 2023-08-24 14:30:00 2023-08-24 15:00:00 Office Visit Jaylene Segura [facility] LONG?[facility] 1.2.840.114 350.1.13.10 4.2.7.2.686 [id number] 044 [id number] [facility] 2023-08-24 14:30:00 2023-08-24 14:30:00 Outpatient JAYLENE CHARLES [facility] [id number] [facility] 2023-08-10 10:30:00 2023-08-10 10:30:00 Outpatient JAYLENE CHARLES [facility] [id number] [facility] 2023-08-04 00:00:00 2023-08-04 00:00:00 Refill Jaylene Segura [facility] 1.2.840.114 350.1.13.10 4.2.7.2.686 [id number] 044 [id number] [facility] 2023-07-19 20:00:00 2023-07-19 20:00:00 Outpatient R [facility] [id number] [facility] 2023-07-13 14:00:00 2023-07-13 14:00:00 Outpatient R JAYLENE SEGURA [facility] [id number] [facility] 2023-07-12 00:00:00 2023-07-12 00:00:00 Telephone Jaylene Segura [facility] 1.2840.114 350.1.13.10 4.2.7.2.686 [id number] [facility] 2023-06-14 00:00:00 2023-06-14 00:00:00 Telephone Jaylene Segura [facility] 1.2840.114 350.1.13.10 4.2.7.2.686 [id number] [id number] [facility] 2023-06-03 10:00:00 2023-06-03 10:00:00 Outpatient R [facility] [id number] [facility] 2023-06-02 00:00:00 2023-06-02 00:00:00 Refill Neli [facility] 1.840.114 350.1.13.10 4.2.7.2.686 [id number] [facility] 2023-06-01 14:30:00 2023-06-01 14:45:00 Assembler Engine Visit [facility] Sleep Lab Zoraida Nixon [facility] 1.2840.114 350.1.13.10 4.2.7.2.686 [id number] [facility] 2023-06-01 14:30:00 2023-06-01 14:30:00 Outpatient R ZORAIDA NIXON STRAFLEdil [facility] [id number] [facility] 2023-06-01 00:00:00 2023-06-01 00:00:00 Orders Only Doctor Unassigned, [place] [facility] 1.2840.114 350.1.13.10 4.2.7.2.686 [id number] [facility] 2023-05-18 15:45:00 2023-05-18 16:50:47 Outpatient R JAYLENE SEGURA [facility] [id number] [facility] 2023-05-18 15:45:00 2023-05-18 16:50:47 [facility] 1.2.840.114 350.1.13.10 4.2.7.2.686 [id number] 044 [id number] [facility] 2023-05-18 00:00:00 2023-05-18 00:00:00 Orders Only Doctor Unassigned, [place] [facility] 1.2840.114 350.1.13.10 4.2.7.2.686 [id number] [facility] 2023-05-18 00:00:00 2023-05-18 00:00:00 Letter (Out) Jaylene Segura [facility] LONG[facility] 1.2.840.114 350.1.13.10 4.2.7.2.686 [id number] [id number] [facility] 2023-04-24 00:00:00 2023-04-24 00:00:00 Refill Jaylene Segura [facility] LONG?[facility] OFF[facility] BUILDING 1.2.840.114 350.1.13.10 4.2.7.2.686 [id number] 044 [id number] [facility] 2023-04-13 00:00:00 2023-04-13 00:00:00 Refill Jaylene Segura [facility] BU[facility] 1.2.840.114 350.1.13.10 4.2.7.2.686 [id number] [id number] [facility] 2023-03-16 00:00:00 2023-03-16 00:00:00 Refill Jaylene Segura [facility] LONG?[facility] 1.840.114 350.1.13.10 4.2.7.2.686 [id number] [id number] [facility] 2023-02-03 00:00:00 2023-02-03 00:00:00 Jaylene Seay [facility] LONG?[facility] 1.2840.114 350.1.13.10 4.2.7.2.686 [id number] [facility] 2023-01-03 21:10:00 2023-01-03 22:04:00 Emergency X CORREIADUSTY [facility] [id number] [facility] 2023-01-03 21:10:00 2023-01-03 22:04:00 Emergency Dusty Correia [facility] 1.840.114 350.1.13.10 4.2.7.2.686 [id number] [facility] 2022-12-22 00:00:00 2022-12-22 00:00:00 Jaylene Seay [facility] BU[facility] 1..114 350.1.13.10 4.2.7.2.686 [id number] 044 [id number] [facility] 2022-11-17 00:00:00 2022-11-17 00:00:00 Jaylene Seay [facility] LONG?[facility] 1.840.114 350.1.13.10 4.2.7.2.686 [id number] [id number] [facility] 2022-10-15 00:00:00 2022-10-15 00:00:00 Jaylene Seay [facility] LONG?[facility] 1.2840.114 350.1.13.10 4.2.7.2.686 [id number] [facility] 2022-10-14 00:00:00 2022-10-14 00:00:00 Telephone Jaylene Segura [facility] LONG?[facility] 1.2.840.114 350.1.13.10 4.2.7.2.686 [id number] [facility] 2022-10-07 13:30:00 2022-10-07 13:30:00 Outpatient ZORAIDA EDWARDS STRAFLEdil [facility] [id number] [facility] 2022-09-17 00:00:00 2022-09-17 00:00:00 Refill Jaylene Segura [facility] LONG?[facility] MED[facility] OFFICE BUILDING 1.2.840.114 350.1.13.10 4.2.7.2.686 [id number] [id number] [facility] 2022-09-05 00:00:00 2022-09-05 00:00:00 Refill Renee Michelle [facility] LONG?[facility] 1.2.840.114 350.1.13.10 4.2.7.2.686 [id number] [id number] [facility] 2022-08-18 09:45:00 2022-08-18 10:00:00 Office Visit Jaylene Segura [facility] LONG?[facility] 1.2.840.114 350.1.13.10 4.2.7.2.686 [id number] 044 [id number] [facility] 2022-08-18 09:45:00 2022-08-18 09:45:00 Outpatient R JAYLENE SEGURA [facility] [id number] [facility] 2022-08-18 00:00:00 2022-08-18 00:00:00 Letter (Out) Jaylene Segura [facility] LONG?[facility] 1.2840.114 350.1.13.10 4.2.7.2.686 [id number] [facility] 2022-08-16 00:00:00 2022-08-16 00:00:00 [facility] 1.2840.114 350.1.13.10 4.2.7.2.686 [id number] [facility] 2022-08-04 10:30:00 2022-08-04 11:06:26 Outpatient R RENEE MICHELLE [facility] [id number] [facility] 2022-08-04 10:30:00 2022-08-04 11:06:26 Office Visit Viviana Renee [facility] LONG?[facility] 1.2840.114 350.1.13.10 4.2.7.2.686 [id number] 044 [id number] [facility] 2022-08-04 00:00:00 2022-08-04 00:00:00 Letter (Out) Viviana Renee [facility] LONG?[facility] 1.2840.114 350.1.13.10 4.2.7.2.686 [id number] [facility] 2022-07-16 00:00:00 2022-07-16 00:00:00 [facility] 1.840.114 350.1.13.10 4.2.7.2.686 [id number] [facility] 2022-06-03 00:00:00 2022-06-03 00:00:00 [facility] 1.2840.114 350.1.13.10 4.2.7.2.686 [id number] 044 [id number] [facility] 2022-04-04 00:00:00 2022-04-04 00:00:00 Refill [facility] 1.2.840.114 350.1.13.10 4.2.7.2.686 [id number] 044 [id number] [facility] 2022-02-20 00:00:00 2022-02-20 00:00:00 [facility]ill [facility] 1.2.840.114 350.1.13.10 4.2.7.2.686 [id number] [id number] [facility] 2022-02-20 00:00:00 2022-02-20 00:00:00 Telephone VanesaJaylene weber [facility] OFF[facility] BUILD[facility] 1.2.840.114 350.1.13.10 4.2.7.2.686 [id number] [facility] 2022-01-19 00:00:00 2022-01-19 00:00:00 [facility] 1.2.840.114 350.1.13.10 4.2.7.2.686 [id number] 044 [id number] [facility] 2021-11-22 00:00:00 2021-11-22 00:00:00 [facility]ill [facility] 1.2.840.114 350.1.13.10 4.2.7.2.686 [id number] 044 [id number] [facility] 2021-11-15 00:00:00 2021-11-15 00:00:00 [facility]Jaylene [facility]asc[facility] 1.2.840.114 350.1.13.10 4.2.7.2.686 [id number] 044 [id number] [facility] 2021-07-19 00:00:00 2021-07-19 00:00:00 Jaylene Seay [facility] OFFICE BUILDING ONE 1.2840.114 350.1.13.10 4.2.7.2.686 [id number] 044 [id number] [facility] 2021-06-17 00:00:00 2021-06-17 00:00:00 Diane Rankin [facility] BUILDING 1.2840.114 350.1.13.10 4.2.7.2.686 [id number] [facility] 2021-06-12 12:00:00 2021-06-12 15:08:00 Emergency Dusty Correia [facility] 1.2840.114 350.1.13.10 4.2.7.2.686 [id number] [facility] 2021-06-12 12:00:00 2021-06-12 15:08:00 Emergency X CORREIADUSTY [facility] [id number] [facility] 2021-06-06 10:00:00 2021-06-06 13:21:00 Emergency X Kaelyn DUDLEY [facility] [id number] [facility] 2021-06-06 10:00:00 2021-06-06 13:21:00 Emergency Kaelyn Dudley [facility] 1.2840.114 350.1.13.10 4.2.7.2.686 [id number] [facility] 2021-05-15 00:00:00 2021-05-15 00:00:00 Jaylene Seay misty [facility] BUILDING 1.2840.114 350.1.13.10 4.2.7.2.686 [id number] 044 [id number] [facility] 2021-04-26 00:00:00 2021-04-26 00:00:00 Refjavier Segura [facility] OFFICE BUILDING ONE 1.84.114 350.1.13.10 4.2.7.2.686 [id number] 044 [id number] [facility] 2021-04-17 00:00:00 2021-04-17 00:00:00 Refill Neli [facility] OFFICE BUILDING ONE 1.84.114 350.1.13.10 4.2.7.2.686 [id number] 044 [id number] [facility] 2021-03-16 00:00:00 2021-03-16 00:00:00 Ramone Segura [facility] OFFICE BUILDING ONE 1.84.114 350.1.13.10 4.2.7.2.686 [id number] 044 [id number] [facility] 2021-02-15 00:00:00 2021-02-15 00:00:00 Ramone Balbuenaolimpia [facility] NAL BUILDING 1.840.114 350.1.13.10 4.2.7.2.686 [id number] [id number] [facility] 2021-01-31 11:25:41 2021-01-31 12:05:41 Ancillary Visit Marjorie Raymond [facility] Building 1.2840.114 350.1.13.10 4.2.7.2.686 [id number] [facility] 2021-01-31 09:59:59 2021-01-31 10:39:35 Office Visit Neli [facility] 1.2840.114 350.1.13.10 4.2.7.2.686 [id number] [facility] 2021-01-31 10:00:00 2021-01-31 10:00:00 Outpatient R JAYLENE SEGURA [facility] [id number] [facility] 2021-01-23 13:58:30 2021-01-23 14:58:30 Ancillary Visit Marjorie Raymond Craig L [facility] Building 1.2.840.114 350.1.13.10 4.2.7.2.686 [id number] [facility] 2021-01-16 14:28:43 2021-01-16 15:28:43 Ancillary Visit Marjorie Raymond Craig L [facility] Building 1.2.840.114 350.1.13.10 4.2.7.2.686 [id number] [facility] 2021-01-15 15:00:00 2021-01-15 15:00:00 Outpatient R [facility] [id number] [facility] 2021-01-13 15:08:04 2021-01-14 08:06:50 Ancillary Visit Rola Kitchen Craig L [facility] Building 1.2.840.114 350.1.13.10 4.2.7.2.686 [id number] [facility] 2021-01-09 15:22:35 2021-01-09 16:22:35 Ancillary Visit Marjorie Raymond Craig L [facility] Building 1.2.840.114 350.1.13.10 4.2.7.2.686 [id number] [facility] 2021-01-09 00:00:00 2021-01-09 00:00:00 Jaylene Seay [facility] Office Building One 1.2.840.114 350.1.13.10 4.2.7.2.686 [id number] [id number] [facility] 2021-01-06 13:17:44 2021-01-06 14:17:44 Ancillary Visit Rola Kitchen [facility] nal Building 1.2.840.114 350.1.13.10 4.2.7.2.686 [id number] [facility] 2021-01-06 13:00:00 2021-01-06 13:00:00 Outpatient CESAR REYES [facility] [id number] [facility] 2021-01-01 16:43:06 2021-01-01 16:58:06 [employer] Engine Visit Lab, [facility] 1.2.840.114 350.1.13.10 4.2.7.2.686 [id number] [facility] 2021-01-01 15:52:15 2021-01-01 16:07:15 [facility] Building 1.2.840.114 350.1.13.10 4.2.7.2.686 [id number] [facility] 2021-01-01 16:00:00 2021-01-01 16:00:00 Outpatient JAYLENE CHARLES [facility] [id number] [facility] 2020-12-24 15:00:00 2020-12-24 15:00:00 Outpatient JAYLENE CHARLES [facility] [id number] [facility] 2020-12-23 00:00:00 2020-12-23 00:00:00 Ramone Segura [facility] Office Building One 1.2.840.114 350.1.13.10 4.2.7.2.686 [id number] [facility] 2020-12-18 08:30:00 2020-12-18 23:59:00 Hospital Encounter Diane FeltonCoreyShannon [facility] Building 1.2.840.114 350.1.13.10 4.2.7.2.686 [id number] [facility] 2020-12-18 14:44:24 2020-12-18 15:38:44 Office Visit Diane FeltonCoreyShannon [facility] Building 1.2.840.114 350.1.13.10 4.2.7.2.686 [id number] [facility] 2020-12-18 14:30:00 2020-12-18 14:30:00 Out[facility] [facility] [id number] [facility] 2020-12-03 00:00:00 2020-12-03 00:00:00 Orders Only Doctor Unassigned, [facility] 1.2.840.114 350.1.13.10 4.2.7.2.686 [id number] [facility] 2020-11-26 14:30:00 2020-11-26 14:30:00 Outpatient JAYLENE CHARLES [facility] [id number] [facility] 2019-11-22 11:15:00 2019-11-22 11:15:00 Outpatient JAYLENE CHARLES [facility] [id number] [facility] 2019-11-13 20:00:00 2019-11-13 20:00:00 Outpatient ZORAIDA EDWARDS STRAHIL [facility] [id number] [facility] 2019-11-10 14:00:00 2019-11-10 14:00:00 Outpatient R [facility] [id number] [facility] 2019-10-11 00:00:00 2019-10-11 00:00:00 Transition of Care Kavin Brownele Ajay Reillyluc Erickson Gregg 1.2.840.114 350.1.13.10 4.2.7.2.686 [id number] 2019-10-05 19:53:26 2019-10-10 16:15:00 Hospital En[facility] 1.2.840.114 350.1.13.10 4.2.7.2.686 [id number] 2019-06-16 10:46:28 2019-06-16 12:29:00 Emergency X HARLEENMALISSALIZET MANNY [facility] ERT [id number] [facility] 2019-06-16 10:46:28 2019-06-16 12:29:00 Emergency Manny Macias F [facility] 1.2.840.114 350.1.13.10 4.2.7.2.686 [id number] 2019-06-16 00:00:00 2019-06-16 00:00:00 Orders Only Doctor Unassigned, [facility] 1.2.840.114 350.1.13.10 4.2.7.2.686 [id number] 2019-03-08 16:34:14 2019-03-16 17:05:00 Inpatient X MARIA SANTIAGO [facility] FLAQUITO [id number] [facility] Results Test Description Test Time Test Comments Results Result Co mments Source [facility] ([id number])2024-02-17 20:47:41* Test Item Value Reference Range Interpretation Comme nts NA (test code = 9983517391) 137 mmol/L 135-145 K (test code = 5551709976) 3.7 mmol/L 3.5-5.0 CL (test code = 3905212764) 102 mmol/L 98-108 CO2 TOTAL (test code = 0321206355) 27 mmol/L 23-31 AGAP (test code = 9117310531) 8 2-16 BUN (test code = 5690082986) 23 mg/dL 7-23 GLUCOSE (test code = 2234751957) 104 mg/dL 70-110 CREATININE (test code = 2160-0) 1.47 mg/dL 0.60-1.25 H TOTAL BILI (test code = 1025957090) 1.3 mg/dL 0.1-1.1 H CALCIUM (test code = 0014413494) 9.1 mg/dL 8.6-10.6 T PROTEIN (test code = 0372615361) 7.6 g/dL 6.3-8.2 ALBUMIN (test code = 3028121434) 4.3 g/dL 3.5-5.0 ALK PHOS (test code = 1202662593) 67 U/L 34-122 ALTv (test code = 1742-6) 22 U/L 5-50 AST(SGOT) (test code = 0269705451) 21 U/L 13-40 eGFR (test code = 00813-9) 56.7 mL/min/1.73m2 CKD-EPI eGFR (2020). Assuming creatinine has been stable day-to-day for at least three months, the eGFR indicates Category G3a (45 - 59 mL/min/1.73 m2) Lab Interpretation (test code = 35835-3) Abnormal [facility]. METABOLIC PANEL ([id number])2021-06-12 19:22:30* Test Item Value Reference Range Interpretation Comme nts NA (test code = 8295889413) 137 mmol/L 135-145 K (test code = 4725601496) 3.8 mmol/L 3.5-5.0 CL (test code = 3101439636) 100 mmol/L 98-108 CO2 TOTAL (test code = 8422001346) 27 mmol/L 23-31 AGAP (test code = 4919484918) 2-16 BUN (test code = 7353127857) 32 mg/dL 7-23 H GLUCOSE (test code = 2124838070) 140 mg/dL 70-110 H CREATININE (test code = 2255240412) 1.95 mg/dL 0.60-1.25 H TOTAL BILI (test code = 5098023987) 0.6 mg/dL 0.1-1.1 CALCIUM (test code = 2981851448) 8.9 mg/dL 8.6-10.6 T PROTEIN (test code = 9219056270) 7.3 g/dL 6.3-8.2 ALBUMIN (test code = 0517886380) 4.4 g/dL 3.5-5.0 ALK PHOS (test code = 9640536597) 78 U/L 34-122 ALTv (test code = 1742-6) 18 U/L 5-50 AST(SGOT) (test code = 0064443124) 22 U/L 13-40 eGFR (test code = 2265701936) mL/min/1.73m2 TWAN (test code = TWAN) Association [...] imaging tests). Lab Interpretation (test code = 04240-6) Abnormal [facility] WITH [id number] 18:59:07* Test Item Value Reference Range Interpretation [...] 33.3 g/dL 31.2-35.0 RDW-SD (test code = 54291-5) 41.5 fL 38.5-51.6 RDW-CV (test code = 788-0) 11.9 % 12.1-15.4 L PLT (test code = 777-3) See_Comment [Automated messa ge] The system which generated this result transmitted reference range: 150 - 328 10*3/?L. The reference range was not used to interpret this result as normal/abnormal. MPV (test code = 64935-6) 11.0 fL 9.8-13.0 NRBC/100 WBC (test code = 2670305685) See_Comment [Automated [employer] ssage] The system which generated this result transmitted reference range: 0.0 - 10.0 /100 WBCs. The reference range was not used to interpret this result as normal/abnormal. NRBC x10^3 (test code = 3940343666) <0.01 See_Comment [Automated messa ge] The system which generated this result transmitted reference range: 10*3/?L. The reference range was not used to interpret this result as normal/abnormal. GRAN MAT (NEUT) % (test code = 770-8) 71.4 % IMM GRAN % (test code = 2039948300) 0.40 % LYMPH % (test code = 736-9) 17.0 % MONO % (test code = 5905-5) 8.1 % EOS % (test code = 713-8) 2.5 % BASO % (test code = 706-2) 0.6 % GRAN MAT x10^3(ANC) (test code = 0112443781) 7.67 10*3/uL 1.99-6.95 H IMM GRAN x10^3 (test code = 6388195076) 0.04 10*3/uL 0.00-0.06 LYMPH x10^3 (test code = 731-0) 1.82 10*3/uL 1.09-3.23 MONO x10^3 (test code = 742-7) 0.87 10*3/uL 0.36-1.02 EOS x10^3 (test code = 711-2) 0.27 10*3/uL 0.06-0.53 BASO x10^3 (test code = 704-7) 0.06 10*3/uL 0.01-0.09 Lab Interpretation (test code = 50863-6) [facility] [id number] 17:28:57* Test Item Value Reference Range Interpretation Comme nts NA (test code = 5966997995) 139 mmol/L 135-145 K (test code = 2612670685) 4.1 mmol/L 3.5-5.0 CL (test code = 2928131947) 102 mmol/L 98-108 CO2 TOTAL (test code = 9165522498) 24 mmol/L 23-31 AGAP (test code = 7277608317) 2-16 BUN (test code = 5754400951) 27 mg/dL 7-23 H GLUCOSE (test code = 3974422768) 97 mg/dL 70-110 CREATININE (test code = 5046382882) 1.93 mg/dL 0.60-1.25 H TOTAL BILI (test code = 2263668924) 0.5 mg/dL 0.1-1.1 CALCIUM (test code = 9044162422) 9.1 mg/dL 8.6-10.6 T PROTEIN (test code = 6153108298) 7.2 g/dL 6.3-8.2 ALBUMIN (test code = 9877519004) 4.3 g/dL 3.5-5.0 ALK PHOS (test code = 7495166937) 89 U/L 34-122 ALTv (test code = 1742-6) 17 U/L 5-50 AST(SGOT) (test code = 8353299409) 23 U/L 13-40 eGFR (test code = 5641676054) mL/min/1.73m2 TWAN (test code = TWAN) Association [...] imaging tests). Lab Interpretation (test code = 40089-4) [facility]normal [facility], [id number] 17:28:37* Test Item Value Reference Range Interpretation Comme nts LIPASE (test code = 3194752987) 138 U/L 0-220 Lab Interpretation (test cod e = 23049-6) Normal [facility] with [id number] 16:30:33* Test Item Value Reference Range Interpretation Comme nts WBC (test code = 6690-2) See_Comment [Automated messa ge] The system which [...] 34.1 g/dL 31.2-35.0 RDW-SD (test code = 25876-5) 42.7 fL 38.5-51.6 RDW-CV (test code = 788-0) 12.2 % 12.1-15.4 PLT (test code = 777-3) See_Comment [Automated [facility]] The system which generated this result transmitted reference range: 150 - 328 10*3/?L. The reference range was not used to interpret this result as normal/abnormal. MPV (test code = 12426-3) 11.1 fL 9.8-13.0 NRBC/100 WBC (test code = 3838045911) See_Comment [Automated me ssage] The system which generated this result transmitted reference range: 0.0 - 10.0 /100 WBCs. The reference range was not used to interpret this result as normal/abnormal. NRBC x10^3 (test code = 6624606221) <0.01 See_Comment [Automated me ssage] The system which generated this result transmitted reference range: 10*3/?L. The reference range was not used to interpret this result as normal/abnormal. GRAN MAT (NEUT) % (test code = 770-8) 72.1 % IMM GRAN % (test code = 8564847159) 0.50 % LYMPH % (test code = 736-9) 14.7 % MONO % (test code = 5905-5) 8.7 % EOS % (test code = 713-8) 3.4 % BASO % (test code = 706-2) 0.6 % GRAN MAT x10^3(ANC) (test code = 8621214480) 6.40 10*3/uL 1.99-6.95 IMM GRAN x10^3 (test code = 4206305878) 0.04 10*3/uL 0.00-0.06 LYMPH x10^3 (test code = 731-0) 1.30 10*3/uL 1.09-3.23 MONO x10^3 (test code = 742-7) 0.77 10*3/uL 0.36-1.02 EOS x10^3 (test code = 711-2) 0.30 10*3/uL 0.06-0.53 BASO x10^3 (test code = 704-7) 0.05 10*3/uL 0.01-0.09 [facility] Consult Notes Date/Time Note Provider Source 2024-02-18 09:51:06 Associated Order(s): CONSULT PS POLY/SPECIALTY BEDS [facility] NURSE NOTE Consult for: Specialty Bed Request - Bariatric Confirmed by charge nurse via text, bariatric bed ordered for patient. ASSESSMENT: 6'4, 494 lbs, 53 yo male Consult closed/completed. Gail Bryant, MSN, RN, CWOCN, CCRN Wound, Ostomy & Continence Nurse [facility] P [phone] [email or web address] MANAGER Gail Bryant RN [facility] - Health History and Physical Notes Date/Time Note Provider Source 2024-02-17 20:36:07 [facility] Hospitalist Admission H&P Date of Service: 02/17/2024 CHIEF COMPLAINT: Left lower extremity cellulitis HISTORY OF PRESENT ILLNESS Neha Loyd IV is a 53 year old male who presents with cellulitis of the left lower extremity. Patient has a history of lymphedema, but he has been noncompliant with his wraps over his legs are significantly swollen. He also supposed to be on diuretics which she does not take when he works. 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 His legs also get quite swollen whenever he stays up on them. He noticed that he had a little spot on his left leg and his was concerned and thought it may be an infection. He has had cellulitis of the left leg twice in the right leg once in the past. He was a little concerned that the aspirate was developing into and when they checked on it again and had worsened so he came into the ER for further evaluation. In the emergency room patient was found to have cellulitis of the left leg. Patient was admitted to the hospital for inpatient hospitalization. Since patient's admission patient's cellulitis has spread more extensively than the marking that his made earlier today. Will continue with dual antibiotic therapy at this time and await for blood culture results. 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 He has been taken Eliquis since that time. At this time patient will be admitted for inpatient hospitalization. PAST MEDICAL HISTORY Past Medical History: Diagnosis Date Cellulitis of left lower leg Hypertension Kidney stone about 15 years ago from 03/12/19; left side; s/p stent placement Lymphedema PAST SURGICAL HISTORY Past Surgical History: Procedure Laterality Date URETERAL CATHETER PLACEMENT ureteral stent placement; 15 years ago from 03/12/2019 ALLERGIES No Known Allergies MEDICATIONS Current home medication list reviewed: Current Discharge Medication List STOP taking these medications ELIQUIS 5 mg tablet Comments: Reason for Stopping: amLODIPine 5 mg tablet Comments: Reason for Stopping: FUROSEMIDE 80 mg tablet Comments: Reason for Stopping: SPIRONOLACTONE 25 mg tablet Comments: Reason for Stopping: FAMILY HISTORY Family History Problem Relation Age of Onset Other - see comments Mother colostomy Diabetes Father Diabetes Maternal Grandmother Diabetes Maternal Grandfather Coronary Heart Disease Maternal Grandfather 45 SOCIAL HISTORY Social History Socioeconomic History Marital status: Tobacco Use Smoking status: Former Current packs/day: 1.00 Average packs/day: 1 pack/day for 5.0 years (5.0 ttl pk-yrs) Types: Cigarettes Smokeless tobacco: Former Types: Chew Quit date: 03/06/2019 Substance and Sexual Activity Alcohol use: Not Currently Drug use: Never Sexual activity: Yes Partners: Female 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 Social Determinants of Health Food Insecurity: No Food Insecurity (03/08/2019) Hunger Vital Sign Worried About Running Out of Food in the Last Year: Never true Ran Out of Food in the Last Year: Never true Transportation Needs: No Transportation Needs (03/08/2019) PRAPARE - Transportation Lack of Transportation (Medical): No Lack of Transportation (Non-Medical): No REVIEW OF SYSTEMS 10 systems negative except per HPI PHYSICAL EXAMINATION BP (!) 141/63 | Pulse 81 | Temp 36.4 ?C (97.6 ?F) | Resp 22 | Ht 1.93 m (6' 4") | Wt 224.5 kg (494 lb 15.4 oz) | SpO2 91% | BMI 60.25 kg/m? General: No acute distress HEENT: Normal oral mucosa, anicteric sclerae, NCAT Cardiovascular: RRR Lungs: Symmetric expansion, clear bilaterally Abdomen: Soft, NTND Musculoskeletal: No synovitis, normal muscle mass Genitourinary: Deferred Skin: Erythema and edema of the left leg; left is greater than right Extremities: Bilateral lower extremity edema; redness and pain of the left leg Neuro: AAOx3, no focal deficits Psych: Normal affect LABS - reviewed pertinent labs as below: CBC BMP PT/INR WBC (10*3/?L) Date Value 02/17/2024 19.11 (H) NA (mmol/L) Date Value 02/17/2024 137 No results found for: "PT" RBC (10*6/?L) Date Value 02/17/2024 4.63 K (mmol/L) Date Value 02/17/2024 3.7 INR (no units) Date Value 10/05/2019 1.5 PLT (10*3/?L) Date Value 02/17/2024 233 CALCIUM (mg/dL) Date Value 02/17/2024 9.1 HGB (g/dL) Date Value 02/17/2024 15.1 CL (mmol/L) Date Value 02/17/2024 102 aPTT HCT (%) Date Value 02/17/2024 45.4 BUN (mg/dL) Date Value 02/17/2024 23 APTT Patient (Seconds) Date Value 10/05/2019 33 CREATININE (mg/dL) Date Value 02/17/2024 1.47 (H) IMAGING - reviewed, pertinent results as below: No results found for this visit on 02/17/24. ASSESSMENT: 1. Left lower extremity cellulitis 2. History of lymphedema; noncompliance with treatment 3. History of hypertension; 4. History of nephrolithiasis 5. History of DVT 6. Morbid obesity PLAN: 1. Patient with left lower extremity cellulitis in a patient with a history of lymphedema has been noncompliant with his wraps. His left lower extremity is significantly swollen. Patient will be continued with IV antibiotic therapy. Patient will continue with diuretics. Patient also has a history of DVT and venous Doppler was ordered. However it is DVT was diagnosed in 2019. Patient has been on Eliquis since that time. Patient was advised to resume lymphedema therapy as an outpatient once his cellulitis has improved. 2. History of hypertension; resume antihypertensives 3. History of DVT; patient could possibly stop the Eliquis but at this time with a cellulitis we will continue with and have patient follow-up with his PCP regarding long-term need for anticoagulation 4. Morbid obesity; patient would benefit from GLP agonist therapy or bariatric surgery referral. 5. GI DVT prophylaxis DVT prophylaxis: enoxaparin Stress ulcer prophylaxis: pantoprazole Code status: FULL Advanced Care Planning (Z71.89) Above assessment and plan discussed at length with patient, patient expressed full understanding. Questions and concerned addressed. Surrogate decision maker: NO Level of care expected after discharge: HOME Time spent: 3 minutes discussing the advanced care plan Smoking Cessation: (Z71.6) Tobacco user?: NO Patient will require inpatient stay of 2 midnights or more given high risk of morbidity and mortality [place] [employer] was verified during stay Belkis Mckeon MD MANAGER IM-INTERNAL MEDICINE STAFF [facility] Notes Date/Time Note Provider Source 2024-02-21 14:37:35 TRANSITIONAL CARE MANAGEMENT ASSESSMENT 02/21/2024 Neha Loyd IV [id number] Neha Loyd IV is a 53 year old /White male was admitted on 02/17/24 to [facility], [facility]. He was discharged on 02/19/24 with discharge disposition of HR- Routine Discharge. Admitting Physician: Sriram Hughes Discharge Diagnosis: LLE Cellulitis DVT HTN CKD III Obesity, Class III No linked episodes TCM Baq-crrk-ne-face outreach documentation: Discharge Assessment Chart Assessed: 02/21/24 TCM Outreach Completed: 02/21/24 Do you have a few minutes to speak with me about how you are doing at home?: Yes Discharge Instructions Do you understand your at-home instructions?: Yes Medications Have you filled your prescriptions and do you have them in your home? : Yes Do you know how to take your medications?: Yes Supplies Did you receive applicable home medical supplies/equipment?: N/A Follow Up Appointment Has a follow up appointment been scheduled?: No May I assist with scheduling this appointment?: Patient declined assistance (pt reports he's unable to schedule right now but will call back.) Do you have any questions about your follow up appointments?: No Home Health Assistance Has the home health nurse contacted you since you've been home?: N/A Survey - Recognition Is there anything you would like to share about your recent hospitalization, or anyone you would like to recognize?: No Do you have any suggestions for improvement?: No Do you have any other questions or concerns at this time?: No Future Appointments: Dawn RN [facility] 2024-02-19 11:48:32 Problem: Discharge Planning Goal: Adequate for discharge Outcome: Adequate for discharge Goal: Effective communication Outcome: Adequate for discharge Problem: Pain Goal: Control of pain at or below patient's documented comfort goal Outcome: Adequate for discharge Goal: Reduction in pain sensation Outcome: Adequate for discharge Problem: Skin integrity Impaired (Risk or Actual) Goal: Wound healing Outcome: Adequate for discharge Goal: Prevention of new skin breakdown Outcome: Adequate for discharge Problem: Falls, Risk of Goal: Absence of falls Outcome: Adequate for discharge Problem: Infection Risk Goal: Absence of infection Outcome: Adequate for discharge Problem: Venous Thromboembolism, (actual or risk of) Goal: Absence of venous thromboembolism (Risk) Outcome: Adequate for discharge Problem: Respiratory Function - Impaired Goal: Able to cough effectively Outcome: Adequate for discharge Goal: Adequate oxygenation Outcome: Adequate for discharge Goal: Adequate work of breathing Outcome: Adequate for discharge Goal: Patent airway Outcome: Adequate for discharge Santiago RN [facility] 2024-02-19 03:45:32 Problem: Discharge Planning Goal: Adequate for discharge Outcome: Progressing as expected Goal: Effective communication Outcome: Progressing as expected Problem: Pain Goal: Control of pain at or below patient's documented comfort goal Outcome: Progressing as expected Goal: Reduction in pain sensation Outcome: Progressing as expected Problem: Skin integrity Impaired (Risk or Actual) Goal: Wound healing Outcome: Progressing as expected Goal: Prevention of new skin breakdown Outcome: Progressing as expected Problem: Falls, Risk of Goal: Absence of falls Outcome: Progressing as expected Problem: Infection Risk Goal: Absence of infection Outcome: Progressing as expected Problem: Venous Thromboembolism, (actual or risk of) Goal: Absence of venous thromboembolism (Risk) Outcome: Progressing as expected Problem: Respiratory Function - Impaired Goal: Able to cough effectively Outcome: Progressing as expected Goal: Adequate oxygenation Outcome: Progressing as expected Goal: Adequate work of breathing Outcome: Progressing as expected Goal: Patent airway Outcome: Progressing as expected Oneal RN [facility] 2024-02-18 17:29:31 Problem: Discharge Planning Goal: Adequate for discharge Outcome: Progressing as expected Goal: Effective communication Outcome: Progressing as expected Problem: Pain Goal: Control of pain at or below patient's documented comfort goal Outcome: Progressing as expected Goal: Reduction in pain sensation Outcome: Progressing as expected Problem: Skin integrity Impaired (Risk or Actual) Goal: Wound healing Outcome: Progressing as expected Goal: Prevention of new skin breakdown Outcome: Progressing as expected Problem: Falls, Risk of Goal: Absence of falls Outcome: Progressing as expected Problem: Infection Risk Goal: Absence of infection Outcome: Progressing as expected Problem: Venous Thromboembolism, (actual or risk of) Goal: Absence of venous thromboembolism (Risk) Outcome: Progressing as expected Problem: Respiratory Function - Impaired Goal: Able to cough effectively Outcome: Progressing as expected Goal: Adequate oxygenation Outcome: Progressing as expected Goal: Adequate work of breathing Outcome: Progressing as expected Goal: Patent airway Outcome: Progressing as expected [facility] 2024-02-18 13:17:03 General Vancomycin Note [facility] Clinical Pharmacist Consult Consulting Service: Vancomycin (Pharmacy to Dose) Pharmacy Vancomycin Therapeutic Monitoring Note Patient Name SERGO Sex Unit Neha Loyd IV [id number] 1970 male 2226/2226-01 Indication for vancomycin and goal Age Total Body Weight Skin and Soft Tissue Infection AUC/CYNTHIA 400-600 mcg*hr/ mL 53 year old Wt Readings from Last 1 Encounters: 02/17/24 224.5 kg (494 lb 15.4 oz) Primary Physician: Dr. Hussein ID Physician, if following: Dr. Young Duration of Antibiotics: Other Concurrent Antibiotics: Unasyn 3 grams q8h Microbiology: Pending Laboratory Data and Vancomycin Dosing CREATININE Date/Time Value Ref Range Status 02/17/2024 02:07 PM 1.47 (H) 0.60 - 1.25 mg/dL Final 06/12/2021 12:37 PM 1.95 (H) 0.60 - 1.25 mg/dL Final 06/06/2021 10:12 AM 1.93 (H) 0.60 - 1.25 mg/dL Final Date CrCl (mL/min) Dosing Regimen and frequency @ Times (mg) Vancomycin Level @ Time (mcg/mL) 02/16 116.6 1000 mg iv once @ 1535 - 02/17 - 1250 mg iv Q12H @ 0406 7.9- - - - - - Assessment & Plan Based on patient-specific levels and Bayesian monitoring, the current regimen is estimated to yield and AUC/CYNTHIA of 469 mcg*hr/ml, which is therapeutic Plan is to: Continue with current vancomycin dose of: 1250 mg iv q12h Expected AUC 469 mcg/ml and trough 17 mcg/ml Plan to draw next level on: _02/21/2024 @ 0600 Thank you for allowing pharmacy to participate in the care of this patient. Please feel free to contact us with any questions or concerns. Raymond Alaniz RPH, PharmD [facility] Department of Pharmacy - [facility] Phone: ADC: [phone] MANAGER Raymond Alaniz [facility] 2024-02-18 00:14:36 Problem: Discharge Planning Goal: Adequate for discharge 02/18/202413 by Sakina Pearson RN Outcome: Progressing as expected 02/18/202413 by Sakina Pearson RN Outcome: Progressing as expected Goal: Effective communication 02/18/202413 by Sakina Pearson RN Outcome: Progressing as expected 02/18/202413 by Sakina Pearson RN Outcome: Progressing as expected Problem: Pain Goal: Control of pain at or below patient's documented comfort goal 02/18/202413 by Sakina Pearson RN Outcome: Progressing as expected 02/18/202413 by Sakina Pearson RN Outcome: Progressing as expected Goal: Reduction in pain sensation 02/18/202413 by Sakina Pearson RN Outcome: Progressing as expected 02/18/202413 by Sakina Pearson RN Outcome: Progressing as expected Problem: Skin integrity Impaired (Risk or Actual) Goal: Wound healing 02/18/202413 by Sakina Pearson RN Outcome: Progressing as expected 02/18/202413 by Sakina Pearson RN Outcome: Progressing as expected Goal: Prevention of new skin breakdown 02/18/202413 by Sakina Pearson RN Outcome: Progressing as expected 02/18/202413 by Sakina Pearson RN Outcome: Progressing as expected Problem: Falls, Risk of Goal: Absence of falls 02/18/202413 by Sakina Pearson RN Outcome: Progressing as expected 02/18/202413 by Sakina Pearson RN Outcome: Progressing as expected Problem: Infection Risk Goal: Absence of infection 02/18/202413 by Sakina Pearson RN Outcome: Progressing as expected 02/18/202413 by Sakina Pearson RN Outcome: Progressing as expected Problem: Venous Thromboembolism, (actual or risk of) Goal: Absence of venous thromboembolism (Risk) 02/18/202413 by Sakina Pearson RN Outcome: Progressing as expected 02/18/202413 by Sakina Pearson RN Outcome: Progressing as expected MANAGER Sakina Pearson RN [facility] 2024-02-17 20:49:31 Images from the original note were not included. General Vancomycin Note [facility] Clinical Pharmacist Consult Consulting Service: Vancomycin (Pharmacy to Dose) Pharmacy Vancomycin Therapeutic Monitoring Note Patient Name SERGO Sex Unit Neha Loyd [id number] 1970 male [id number]/[id number] Indication for vancomycin and goal Age Total Body Weight Skin and Soft Tissue Infection AUC/CYNTHIA 400-600 mcg*hr/ mL 53 year old Wt Readings from Last 1 Encounters: 02/17/24 224.5 kg (494 lb 15.4 oz) Primary Physician: Dr. Linda GARCIA Physician, if following: Dr. Young Duration of Antibiotics: Other Concurrent Antibiotics: Unasyn 3 grams q8h Microbiology: Pending Laboratory Data and Vancomycin Dosing CREATININE Date/Time Value Ref Range Status 02/17/2024 02:07 PM 1.47 (H) 0.60 - 1.25 mg/dL Final 06/12/2021 12:37 PM 1.95 (H) 0.60 - 1.25 mg/dL Final 06/06/2021 10:12 AM 1.93 (H) 0.60 - 1.25 mg/dL Final Date CrCl (mL/min) Dosing Regimen and frequency @ Times (mg) Vancomycin Level @ Time (mcg/mL) 02/16 116.6 1000 mg iv once @ 1535 - 02/17 - 1250 mg iv Q12H schedule at 0330 - - - - - - Assessment & Plan Based on patient-specific levels and Bayesian monitoring, the current regimen is estimated to yield and AUC/CYNTHIA of 499.6mcg*hr/ml, which is therapeutic Plan is to: Give a loading dose of: 1000 mg once 02/17/2024 @1535 Start vancomycin scheduled at a dose of: 1250 mg iv Q12H 02/18/2024 @ 0300 Expected AUC 499 mcg/ml and trough 18 Plan to draw next level on: _02/18/2024 @ 1000 Thank you for allowing pharmacy to participate in the care of this patient. Please feel free to contact us with any questions or concerns. Raymond Alaniz RPH, PharmD [facility] Department of Pharmacy - [facility] Phone: ADC: [phone] [facility] 2024-02-17 18:40:25 Problem: Discharge Planning Goal: Adequate for discharge Outcome: Progressing as expected Goal: Effective communication Outcome: Progressing as expected Problem: Pain Goal: Control of pain at or below patient's documented comfort goal Outcome: Progressing as expected Goal: Reduction in pain sensation Outcome: Progressing as expected Problem: Skin integrity Impaired (Risk or Actual) Goal: Wound healing Outcome: Progressing as expected Goal: Prevention of new skin breakdown Outcome: Progressing as expected Problem: Falls, Risk of Goal: Absence of falls Outcome: Progressing as expected Problem: Infection Risk Goal: Absence of infection Outcome: Progressing as expected Problem: Venous Thromboembolism, (actual or risk of) Goal: Absence of venous thromboembolism (Risk) Outcome: Progressing as expected [facility] [employer] 2024-02-17 17:36:23 Nurse Report Report given to MAHI Hope. Chief complaint, assessment findings, infusion verify and orders reviewed. Plan of care discussed. Patient/family members verbalized understanding. Liset Broussard RN [facility] 2024-02-17 17:36:00 Patient admitted to 2225 for diagnosis of pain of left lower extremity. Patient agrees to admission, discussed plan of care with patient and family. Patient is awake, alert, oriented, resp reg unlabored, color appropriate for race, PIV intact. No adverse reaction to medications administered while in ED. Belongings with patient to unit. [facility] 2024-02-17 15:10:00 Report received from MAHI Martinez / MAHI Aguila. [facility] 2024-02-17 13:24:00 Patient came in with complaints of left lower leg pain since yesterday. He said he has h/o cellulitis on both legs. States he is on Eliquis for blood clot precaution. Denies chest pain nor SOB. [facility] Liset Broussard RN [facility] 2024-02-17 13:02:00 [facility] Emergency Department Note Patient Name: Neha Lody IV Date of : 1970 53 year old male Treatment Room: TX5/DE5 Primary Care Physician: Jaylene Segura Patient Escorted by: Family [5] Mode of Arrival: Personal means [1] EMS Treatment Prior to ED Arrival: HELIOTHERAPIST treatment: None Travel and Exposure Screening: Symptoms Does patient have any of these symptoms?: (not recorded) Exposure Screening Has patient had contact with someone with a communicable disease in the last month?: (not recorded) Diseases exposed to:: (not recorded) Is Patient ?: (not recorded) Exposure Date: (not recorded) Chief Complaint: Chief Complaint Patient presents with Leg Pain left History of Present Illness: 53 y.o. male with h/o severe Lymphedemia(L>R), now with c/o burn/swelling, area of erythema to side of left leg x 2-3 days, worse today prompting ed visit. Past Medical History/Immunizations: Past Medical History: Diagnosis Date Cellulitis of left lower leg Hypertension Kidney stone about 15 years ago from 03/12/19; left side; s/p stent placement Lymphedema Tetanus received in last 5 years: Unknown Allergies: No Known Allergies Past Social History: Tobacco Use Former; 1 pack/day; Smoked an average of 1 pack/day for 5.0 years; Types: Cigarettes Smokeless Tobacco: Former user of smokeless tobacco; Quit 03/06/2019; Types: Chew. Alcohol Use Not Currently. Drug Use Never. Sexual Activity Sexually active; Partners: Female. Past Surgical History: Past Surgical History: Procedure Laterality Date URETERAL CATHETER PLACEMENT ureteral stent placement; 15 years ago from 03/12/2019 Review of Systems: Review of Systems Constitutional: Negative for chills and fever. HENT: Negative. Eyes: Negative. Respiratory: Negative. Breasts: Negative. Cardiovascular: Negative. Gastrointestinal: Negative. Genitourinary: Negative. Musculoskeletal: Negative. Skin: Positive for color change. Neurological: Negative. Psychiatric/Behavioral: Negative. Endocrine: Endocrine negative Physical Exam: ED Triage Vitals [02/17/24 1324] Weight (!) 228 kg (502 lb 9.6 oz) Actual or estimated Actual Height 1.93 m (6' 4") BP (!) 151/74 Pulse 82 Resp 16 Temp 36.9 ?C (98.4 ?F) Temp source Oral SpO2 94 % Measured on Room air Physical Exam Vitals and nursing note reviewed. Constitutional: General: He is not in acute distress. Appearance: Normal appearance. He is not ill-appearing, toxic-appearing or diaphoretic. HENT: Head: Normocephalic. Mouth/Throat: Mouth: Mucous membranes are moist. Eyes: Pupils: Pupils are equal, round, and reactive to light. Cardiovascular: Rate and Rhythm: Normal rate. Pulses: Normal pulses. Pulmonary: Effort: Pulmonary effort is normal. Abdominal: Palpations: Abdomen is soft. Musculoskeletal: Right lower leg: Edema present. Left lower leg: Edema present. Comments: Focal area of cellulitis to LLE with warmth and tenderness Neurological: Mental Status: He is alert. Radiology: No orders to display Lab Results: Lab Results CBC WITH DIFF - Abnormal Result Value Ref Range WBC 19.11 (*) 4.20 - 10.70 10*3/?L RBC 4.63 4.26 - 5.52 10*6/?L HGB 15.1 12.2 - 16.4 g/dL HCT 45.4 38.4 - 49.3 % MCV 98.1 (*) 81.7 - 95.6 fL MCH 32.6 26.1 - 32.7 pg MCHC 33.3 31.2 - 35.0 g/dL RDW-SD 45.3 38.5 - 51.6 fL RDW-CV 12.6 12.1 - 15.4 % PLT 233 150 - 328 10*3/?L MPV 11.4 9.8 - 13.0 fL NRBC/100 WBC 0.0 0.0 - 10.0 /100 WBCs NRBC x10 3 <0.01 10*3/?L GRAN MAT (NEUT) % IMM GRAN % LYMPH % MONO % EOS % BASO % GRAN MAT x10 3 (ANC) IMM GRAN x10 3 LYMPH x10 3 MONO x10 3 EOS x10 3 BASO x10 3 COMP. METABOLIC PANEL (70627) - Abnormal NA 137 135 - 145 mmol/L K 3.7 3.5 - 5.0 mmol/L CL 102 98 - 108 mmol/L CO2 TOTAL 27 23 - 31 mmol/L AGAP 8 2 - 16 BUN 23 7 - 23 mg/dL GLUCOSE 104 70 - 110 mg/dL CREATININE 1.47 (*) 0.60 - 1.25 mg/dL TOTAL BILI 1.3 (*) 0.1 - 1.1 mg/dL CALCIUM 9.1 8.6 - 10.6 mg/dL T PROTEIN 7.6 6.3 - 8.2 g/dL ALBUMIN 4.3 3.5 - 5.0 g/dL ALK PHOS 67 34 - 122 U/L ALTv 22 5 - 50 U/L AST(SGOT) 21 13 - 40 U/L eGFR 56.7 mL/min/1.73m2 EKG: If EKG completed, see Procedure Note. Orders and Treatments: Orders Placed This Encounter Procedures Cbc with Diff Comp. Metabolic Panel (21366) Orders Placed This Encounter Medications furosemide (LASIX) injection 40 mg vancomycin (VANCOCIN) 1,000 mg in NaCl 0.9% (NS) 250 mL VIAL-MATE IV piggyback ampicillin-sulbactam (UNASYN) 3 g in NaCl 0.9% (NS) 100 mL MINI-BAG morpHINE (4 mg/mL) injection 6 mg First Provider Eval: ED Events Date/Time Event User Comments 02/17/24 1347 First Provider Evaluation DAVID BERMUDEZ MD -- 02/17/24 1408 Medical Screening Begins DAVID BERMUDEZ MD -- ED COURSE Diagnosis/Impression as of 02/17/24 1508 Pain of left lower extremity Procedures: Procedures MDM: Medical Decision Making Amount and/or Complexity of Data Reviewed Labs: ordered. Risk Prescription drug management. Parenteral controlled substances. A) LLE Cellulitis, Lymphedema, Leukocytosis Disposition/Condition: Admit, IV abx's, elevation as much as possible, Lasix. ED Disposition None Discharge Medications: Patient's Medications START taking these medications No medications on file CONTINUE taking these medications which have NOT CHANGED AMLODIPINE 5 MG TABLET Take 1 tablet by mouth every morning. ELIQUIS 5 MG TABLET TAKE 1 TABLET BY MOUTH IN THE MORNING AND EVENING TO PREVENT RECURRENCE OF A CLOT IN A DEEP VEIN FUROSEMIDE 80 MG TABLET TAKE 1 TABLET BY MOUTH EVERY MORNING AND EVERY EVENING SPIRONOLACTONE 25 MG TABLET TAKE 1 TABLET BY MOUTH EVERY DAY START taking Modified Medications as Prescribed No medications on file STOP taking these medications No medications on file Electronically signed by: David Bermudez MD 02/17/24 1508 [facility] EMERGENCY PHYSICIAN STAFF [facility] 2024-02-17 13:02:00 AdmissionCare Guideline: Cellulitis - OBS, Observation Based on the indications selected for the patient, the bed status of Observation was determined to be MET The following indications were selected as present at the time of evaluation of the patient: - Observation Care Admission Criteria - Observation care is indicated for 1 or more of the following: - Failure of outpatient therapy (eg, progression or no improvement on antibiotic regimen) requiring immediate adjustment or initiation of IV antibiotics (ie, while treatment at lower level of care is arranged) AdmissionCare documentation entered by: Sriram Hughes [facility], edition, Copyright ? 2023 [facility] [employer] [facility] All Rights Reserved. [id number]:00 MANAGER [facility] 2024-01-11 09:50:01 Images from the original note were not included. Notes: Last Refilled: Name from pharmacy: ELIQUIS 5MG TABLETS Will file in chart as: ELIQUIS 5 mg tablet Sig: TAKE 1 TABLET BY MOUTH IN THE MORNING AND EVENING TO PREVENT RECURRENCE OF A CLOT IN A DEEP VEIN Disp: 60 tablet Refills: 0 (Pharmacy requested: Not specified) Start: 01/10/2024 Class: eRX For: Acute deep vein thrombosis (DVT) of popliteal vein of left lower extremity Last ordered: 1 month ago (11/29/2023) by Jaylene Segura MD Last refill: 11/29/2023 Rx #: [id number]|1|0|1 Anti-coagulants Hbtzfo6501/10/2024 07:00 PM Protocol Details Cr in normal range and within 360 days RBC in normal range and within 360 days PLT in normal range and within 360 days HCT in normal range and within 360 days HGB in normal range and within 360 days Valid encounter within last 12 months To be filled at: [facility][id number] - [place], [place] - [address] [facility] Recent Visits Date Type Provider Dept 08/24/23 Office Visit Jaylene Segura MD [facility] 05/18/23 Office Visit Jaylene Segura MD [facility] 08/18/22 Office Visit Jaylene Segura MD [facility] 08/04/22 Office Visit Renee Michelle FNP [facility] Showing recent visits within past 540 days with a meds authorizing provider and meeting all other requirements Future Appointments No visits were found meeting these conditions. Showing future appointments within next 150 days with a meds authorizing provider and meeting all other requirements Marcela Amado MA [facility] 2023-09-08 07:38:43 Images from the original note were not included. Requested Renewals Name from pharmacy: ELIQUIS 5MG TABLETS Will file in chart as: ELIQUIS 5 mg tablet Sig: TAKE 1 TABLET BY MOUTH IN THE MORNING AND EVENING TO PREVENT RECURRENCE OF A CLOT IN A DEEP VEIN Disp: 60 tablet Refills: 0 (Pharmacy requested: Not specified) Start: 09/07/2023 Class: eRX For: Acute deep vein thrombosis (DVT) of popliteal vein of left lower extremity Last ordered: 1 month ago (08/05/2023) by Jaylene Segura MD Last refill: 08/05/2023 Rx #: [id number]|1|0|1 Anti-coagulants [id number]/07/2023 06:44 PM Protocol Details Cr in normal range and within 360 days RBC in normal range and within 360 days PLT in normal range and within 360 days HCT in normal range and within 360 days HGB in normal range and within 360 days Valid encounter within last 12 months To be filled at: [facility][id number] - [place], [place] - [address] [facility] [employer] CBC WBC (10*3/?L) Date Value 06/12/2021 10.73 (H) RBC (10*6/?L) Date Value 06/12/2021 4.52 PLT (10*3/?L) Date Value 06/12/2021 286 HGB (g/dL) Date Value 06/12/2021 14.3 HCT (%) Date Value 06/12/2021 43.0 Recent Visits Date Type Provider Dept 08/24/23 Office Visit Jaylene Segura MD [facility] 05/18/23 Office Visit Jaylene Segura MD [facility] 08/18/22 Office Visit Jaylene Segura MD [facility] 08/04/22 Office Visit Renee Michelle FNP [facility] Showing recent visits within past 540 days with a meds authorizing provider and meeting all other requirements Future Appointments Date Type Provider Dept 11/23/23 Appointment Jaylene Segura MD [facility] Showing future appointments within next 150 days with a meds authorizing provider and meeting all other requirements Kezia Reyes [facility] 2023-09-06 08:33:47 Spoke to patient and advised him no providers are in today to prescribe pain meds. Advised to utilize Urgent Care. Kezia Reyes LVN 09/06/2023 8:34 AM Kezia Jace Eric [facility] 2023-09-03 15:52:39 Copied from [facility] #[id number]. Topic: Clinical - Medical Advice >> September 03, 2023 3:35 PM Patient Patient Service Coordinator wrote: Neha Loyd IV is a 53 year old male Patient calling in again to f/u on assessment call from earlier. Pt states he is in pain and needing pain med called in bc nothing he is taking is working. Pt states states he saw on 08/23 and discussed options for pain medication. Pt states Dr. Segura has prescribed him tramadol before. Pt was made aware Dr. Segura is out until Wednesday and the med is not showing active on his chart, so in order for him to get the med , he would need to come in. Pt will try [id number] - [place] [address] [facility] [employer] Richardson [facility] 2023-09-03 12:41:49 Neha Loyd IV is a 53 year old male Pt called earlier this am, as an assessment call, but no one has returned his call. Thanks Irena Lozada [facility] 2023-09-03 09:14:09 Neha Loyd IV is a 53 year old male Patient states he saw on 08/23 and discussed options for pain medication, he stes he has been trying tylenol but the pain in the legs is getting worse and unable to sleep. He had to call out of work today so asking for a work excuse as well . Please call pt to clarify and asking for tramadol or any pain meds: [facility] #[id number] - [place], [place] - [address] AT [employer] Ramiro Mckinley [facility] [employer] 2023-08-24 16:50:29 Neha Loyd IV is a 53 year old male Pt was just seen and the prescription for his amlodipine was sent to the wrong pharmacy. Due to his insurance it needs to go to [facility][id number] - [place], [place] - [address] AT [employer] [address] [place] [address] Nika Artis [facility] 2023-08-05 07:31:06 Last Refilled: ELIQUIS 5 mg tablet 60 tablet 0 06/02/2023 -- No Sig: TAKE 1 TABLET BY MOUTH IN THE MORNING AND EVENING TO PREVENT RECURRENCE OF A CLOT IN A DEEP VEIN Sent to pharmacy as: Eliquis 5 mg tablet (apixaban) Class: eRX Order: [id number] Date/Time Signed: 06/02/2023 11:51 E-Prescribing Status: Receipt confirmed by pharmacy (06/02/2023 11:51 AM [facility] MANAGER) Recent Visits Date Type Provider Dept 05/18/23 Office Visit Jaylene Segura MD [facility] 08/18/22 Office Visit Jaylene Segura MD [facility] 08/04/22 Office Visit Renee Michelle FNP [facility] Showing recent visits within past 540 days with a meds authorizing provider and meeting all other requirements Future Appointments Date Type Provider Dept 08/10/23 Appointment Jaylene Segura MD [facility] Showing future appointments within next 150 days with a meds authorizing provider and meeting all other requirements Jasmyne Matias [facility] 2023-07-12 10:38:[address] [facility] informed her patient will need to be seen to get sleep pap orders Patient is currently admitted but will make appointment when released [facility] 2023-07-12 09:45:34 [facility] [phone] Pt hospitalized, healthcare coordinator is requesting an expedite on pt's CPAP orders, states pt reports already having completed the sleep study. Please F/u Nick Bauer [facility] 2023-04-13 08:03:39 Recent Visits Date Type Provider Dept 08/18/22 Office Visit Jaylene Segura MD [facility] 08/04/22 Office Visit Renee Michelle FNP [facility] Showing recent visits within past 540 days with a meds authorizing provider and meeting all other requirements Future Appointments No visits were found meeting these conditions. Showing future appointments within next 150 days with a meds authorizing provider and meeting all other requirements Last refill was Disp Refills Start End SYED CARVEDILOL 25 mg tablet 180 tablet 1 10/15/2022 -- No Sig: TAKE 1 TABLET BY MOUTH IN THE MORNING AND IN THE EVENING WITH MEALS Sent to pharmacy as: carvediloL 25 mg tablet (COREG) MANAGER Suki Mccarthy MA [facility] 2022-11-18 08:34:06 Formatting of this n ote is different from the original. Images from the original note were not included. Requested Renewals Name from pharmacy: ELIQUIS 5MG TABLETS [...] Segura MD Last refill: 10/16/2022 Rx #: [id number]|1|0|1 Anti-coagulants Failed 11/17/2022 06:44 PM Protocol Details [...] last 12 months To be filled at: [id number] - [place], [place] - [address] [facility] Recent Visits Date Type Provider Dept 08/18/22 Office Visit Jaylene Segura MD [facility] 08/04/22 Office Visit Renee Michelle FNP [facility] Showing recent visits within past 540 days with a meds authorizing provider and meeting all other requirements Future Appointments No visits were found meeting these conditions. Showing future appointments within next 150 days with a meds authorizing provider and meeting all other requirements Kezia Reyes LVN [facility]
[2024-02-27] MEDS ORDERED: ONDANSETRON 4 MG/2 ML VIAL ONE (17:45)
[2024-02-27] MEDS ORDERED: MORPHINE 4 MG/ML SYR ONE ×2 (17:45→19:50)
[2024-02-27 18:00] LABS: Absolute Basophils 0.1 K/uL (0-0.5); Absolute Lymphocytes (CBC) 1.5 K/uL (0.7-4.9); Absolute Monocytes 0.9 K/uL (0.1-1.3); Absolute Neutrophil 11.1 K/uL (1.8-8.0); Basophils % 0.6 % (0-1.3); Eosinophils % 0.3 % (0-4.4); Hematocrit 42.9 % (39.6-49.0); Hemoglobin 14.2 g/dL (13.6-17.9); Lymphocytes % 10.8 % (15.3-44.8); MCH 31.9 pg (27.0-35.0); MCHC 33.2 g/dL (32.0-36.0); MCV 96.2 fL (80-100); MPV 8.6 fL (7.6-11.3); Monocytes % 6.9 % (3.3-12.3); Neutrophils % 81.4 % (41.7-73.7); Platelets 245 thou/uL (152-406); RBC Red Blood Cell Count 4.46 M/uL (4.33-5.43); Red Cell Distribution Width 13.1 % (12.1-15.2)
[2024-02-27 18:21] LABS: Albumin 3.1 g/dL (3.4-5.0); Albumin/Globulin Ratio 0.7 (1.1-1.8); Anion Gap 9.9 mEq/L (5.0-15.0); Bilirubin Total 1.3 mg/dL (0.2-1.0); Globulin 4.7 g/dL (2.3-3.5); Potassium 3.9 mEq/L (3.5-5.1); Protein, Total 7.8 g/dL (6.4-8.2); Uric Acid 8.5 mg/dL (3.5-7.2)
--- NOTE | 2024-02-27 20:04 | RAD REPORT ---
EXAM:Extremity Venous [employer] HISTORY: Left leg pain TECHNIQUE: Sonographic evaluation left lower extremity performed.Grayscale, color and spectral analys is performed on all vessels FINDINGS: Echogenic material consistent with acute thrombus is present within the left posterior tibial vein. T he vein is noncompressible with diminished flow. Left common femoral, superficial femoral, greater saphenous, and popliteal and veins are compressible and demonstrate augmentation. Doppler demonstrates good flow. IMPRESSION: Acute thrombus left posterior tibial vein
--- NOTE | 2024-02-27 20:20 | RAD REPORT ---
EXAMINATION: Tib Fib Left CLINICAL INDICATION: Leg pain FINDINGS: No fracture seen. Diffuse edema within the subcutaneous tissues.
--- NOTE | 2024-02-27 21:11 | EDPHYS ---
Physician Documentation [facility] Name: Devin Loyd IV Age: 53 yrs Sex: Male : 1970 Arrival Date: 02/27/2024 Time: 17:17 Bed 7 Private MD: ED Physician Mikhail Mohr HPI: 02/26 17:29 This 53 yrs old Male presents to ER via EMS with complaints of Leg Pain, Leg Swelling. sb4 17:29 The patient presents with cellulitis of the lateral aspect of left calf, medial aspect sb4 of left calf and left macedo. patient reports recurrent cellulitis on his left lower extremity. was most recently admitted at [facility] about 1 week ago for 3 days, was discharged 4 days ago. states he was receiving IV vancomycin and unasyn. states it improved and he was discharged on PO augmentin and linezolid. reports that over the past few days, his pain has worsened. denies any fever. Historical: - Allergies: 17:26 No Known Allergies; kc6 - PMHx: 17:26 Congestive heart failure; Hypertensive disorder; Kidney stones; Cellulitis; kc6 - PSHx: 17:26 None; kc6 - Immunization history:: Adult Immunizations not up to date. - Infectious Disease History:: Denies. - Social history:: Smoking status: Patient denies any tobacco usage or history of. ROS: 17:29 Constitutional: Negative for fever, chills, and weight loss, sb4 17:29 Skin: Positive for cellulitis, erythema, swelling, of the left leg, 17:29 All other systems are negative, Exam: 17:32 Head/Face: Normocephalic, atraumatic. Eyes: Extra-ocular motions intact. Periorbital sb4 areas with no swelling, redness, or edema. ENT: Mucous membranes moist. 17:32 Constitutional: The patient appears alert, awake, obese, uncomfortable, 17:32 Skin: cellulitis, that is moderate, on the lateral aspect of left calf, lymphedema bilateral lower extremities, worse on the left, Vital Signs: 17:25 BP 132 / 86; Pulse 83; Resp 19 S; Temp 98.7(O); Pulse Ox 94% on R/A; Weight 226.34 kg kc6 (M); Height 6 ft. 4 in. (R); Pain 9/10; 19:30 BP 129 / 62; Pulse 86; Resp 18; Pulse Ox 95% on R/A; br2 21:30 BP 136 / 67; Pulse 106; Resp 18; Pulse Ox 91% on R/A; br2 22:27 BP 115 / 57; Pulse 82; Resp 18; Pulse Ox 94% on 3 lpm SLEEP APNEA...UNTIL HE GETS CPAP; br2 17:25 Body Mass Index 60.74 (226.34 kg, 193.04 cm) kc6 17:25 Pain Scale: Adult kc6 MDM: 17:22 Medical Screening Exam initiated sb4 21:09 Data reviewed: vital signs, nurses notes, lab test result(s), radiologic studies, and sb4 as a result, I will admit patient. Consideration of Admission/Observation Patient was admitted/placed on observation. Counseling: I had a detailed discussion with the patient and/or guardian regarding the historical points, exam findings, and any diagnostic results supporting the discharge/admit diagnosis, lab results, radiology results, the need for further work-up and treatment in the hospital. 02/26 17:28 Order name: CBC with Diff; Complete Time: 18:15 sb4 02/26 17:28 Order name: CMP; Complete Time: 18:27 sb4 02/26 17:28 Order name: Lactate w/ 2H reflex if indic.; Complete Time: 18:28 sb4 02/26 17:29 Order name: Uric Acid; Complete Time: 18:27 sb4 02/26 17:29 Order name: CRP; Complete Time: 18:27 sb4 02/26 22:07 Order name: Blood Culture EDFL 02/26 22:07 Order name: Procalcitonin EDFL 02/26 22:09 Order name: Vancomycin Level Trough EDFL 02/26 22:12 Order name: CBC with Automated Diff EDFL 02/26 22:12 Order name: Comprehensive Metabolic Panel EDFL 02/26 22:12 Order name: Creatine Phosphokinase EDFL 02/26 22:12 Order name: Liver (Hepatic) Function EDFL 02/26 22:12 Order name: Magnesium EDFL 02/26 22:12 Order name: NT PRO-BNP EDFL 02/26 22:12 Order name: Phosphorus EDFL 02/26 22:12 Order name: Thyroid Stimulating Hormone EDFL 02/26 22:12 Order name: Urinalysis w/ reflexes EDMS 02/26 22:12 Order name: Lipid Profile EDMS 02/26 22:12 Order name: Lipid Profile EDMS 02/26 18:28 Order name: Extremity Venous Uni Ltd US; Complete Time: 20:05 sb4 02/26 18:32 Order name: Tib Fib Left XRAY; Complete Time: 20:36 sb4 02/26 17:28 Order name: IV Saline Lock; Complete Time: 17:46 sb4 02/26 17:28 Order name: Labs collected and sent; Complete Time: 17:46 sb4 Administered Medications: 17:46 Drug: Ondansetron IVP 4 mg IVP once; over 2 minutes Route: IVP; Site: right upper arm; kc6 17:46 Drug: morphine IVP or IV 4 mg IVP once over 4 mins Route: IVP; Infused Over: 4 mins; kc6 Site: right upper arm; 19:53 Drug: morphine IVP or IV 4 mg IVP once over 4 mins Route: IVP; Infused Over: 4 mins; br2 Site: right antecubital; 22:24 Drug: fentaNYL (PF) IVP 50 mcg IVP once Route: IVP; Site: left upper arm; br2 22:24 Drug: Ketorolac IVP 30 mg IVP once Route: IVP; Site: left upper arm; br2 22:24 Drug: vancoMYCIN IVPB 1.5 grams IVPB at calculated rate once Route: IVPB; Rate: br2 calculated rate; Site: left upper arm; Disposition: 02/27 17:04 Co-signature as Attending Physician, Mikhail Mohr MD I reviewed the patient's care rn provided by the Advanced Practice Provider and agree with the diagnosis and treatment plan. Disposition Summary: 02/27/24 21:11 Hospitalization Ordered Notes: Hospitalization Status: Inpatient Admission sb4 Provider: Jeff Hussein Location: Telemetry/MedSur (Inpatient) sb4 Condition: Fair sb4 Problem: new sb4 Symptoms: are unchanged sb4 Bed/Room Type: Standard sb4 Room Assignment: 214(02/27/24 22:22) cg Diagnosis - Cellulitis of left lower limb - failed outpatient sb4 - Acute embolism and thrombosis of other specified deep vein of left lower extremity sb4 - posterior tibial vein Forms: - Medication Reconciliation Form sb4 - SBAR form sb4 - Leadership Thank You Letter sb4 Signatures: Dispatcher [employer] EDMikhail Dang MD MD rn Garcia, Cindy RN RN Elena Jain RN RN Shelley Melendez, PAMarianne PAMarianne sb4 Irena Mar, RN RN br2 Corrections: (The following items were deleted from the chart) 02/26 17:28 17:28 CBC+H.LAB.BRZ ordered. EDMS EDMS 17: 17:28 COMPREHENSIVE METABOLIC PANEL+C.LAB.BRZ ordered. EDMS EDMS 17: 17:28 LACTATE+C.LAB.BRZ ordered. EDMS EDMS 18:18 17:29 patient reports recurrent cellulitis on his left lower extremity. was most sb4 recently admitted at [facility] about 1 week ago for 3 days, was discharged 4 days ago. states he was receiving IV vancomycin and some other unknown IV antibiotic. states it improved and he was discharged on PO augmentin and linezolid. reports that over the past few days, his pain has worsened. denies any fever. sb4 22:22 21:11 sb4
--- NOTE | 2024-02-27 21:11 | ER ---
Nurse's Notes [facility] Name: Devin Loyd IV Age: 53 yrs Sex: Male : 1970 Arrival Date: 02/27/2024 Time: 17:17 Bed 7 Private MD: Diagnosis: Cellulitis of left lower limb-failed outpatient;Acute embolism and thrombosis of other specified deep vein of left lower extremity-posterior tibial vein Presentation: 02/26 17:25 Chief complaint: EMS states: they were toned out for left knee, ankle, and big toe kc6 pain. pt reports taking 100mg of PO Tramadol today. Coronavirus screen: At this time, the client does not indicate any symptoms associated with coronavirus-19. Ebola Screen: No symptoms or risks identified at this time. Initial Sepsis Screen: Does the patient meet any 2 criteria? No. Patient's initial sepsis screen is negative. Does the patient have a suspected source of infection? No. Patient's initial sepsis screen is negative. Risk Assessment: Do you want to hurt yourself or someone else? Patient reports no desire to harm self or others. Onset of symptoms was February 27, 2024. 17:25 Method Of Arrival: EMS: [facility] kc6 17:25 Acuity: FREDI 3 kc6 Historical: - Allergies: 17:26 No Known Allergies; kc6 - PMHx: 17:26 Congestive heart failure; Hypertensive disorder; Kidney stones; Cellulitis; kc6 - PSHx: 17:26 None; kc6 - Immunization history:: Adult Immunizations not up to date. - Infectious Disease History:: Denies. - Social history:: Smoking status: Patient denies any tobacco usage or history of. Screenin:27 [facility] ED Fall Risk Assessment (Adult) History of falling in the last 3 months, kc6 including since admission No falls in past 3 months (0 pts) Confusion or Disorientation No (0 pts) Intoxicated or Sedated No (0 pts) Impaired Gait No (0 pts) Mobility Assist Device Used No (0 pt) Altered Elimination No (0 pt) Score/Fall Risk Level 0 - 2 = Low Risk Oriented to surroundings. Abuse screen: Denies threats or abuse. Denies injuries from another. Nutritional screening: No deficits noted. Tuberculosis screening: No symptoms or risk factors identified. Assessment: 17:27 General: Appears in no apparent distress. uncomfortable, obese, well developed, kc6 Behavior is calm, cooperative, appropriate for age. Pain: Complains of pain in left knee, anterior aspect of left ankle and dorsum of left foot Pain currently is 9 out of 10 on a pain scale. Neuro: Level of Consciousness is awake, alert, obeys commands, Oriented to person, place, time, situation, Appropriate for age. Cardiovascular: Capillary refill < 3 seconds. Respiratory: Airway is patent Trachea midline Respiratory effort is even, unlabored, Respiratory pattern is regular, symmetrical. GI: No signs and/or symptoms were reported involving the gastrointestinal system. : No signs and/or symptoms were reported regarding the genitourinary system. EENT: No signs and/or symptoms were reported regarding the EENT system. Derm: Skin is intact, is healthy with good turgor, Skin is dry, Skin is normal, Skin temperature is warm redness noted to the LLE. Musculoskeletal: Circulation, motion, and sensation intact. Capillary refill < 3 seconds, Range of motion: intact in all extremities, Swelling present in left foot and left leg. 19:10 Reassessment: Patient and/or family updated on plan of care and expected duration. Pain br2 level reassessed. Patient is alert, oriented x 3, equal unlabored respirations, skin warm/dry/pink. General: Appears uncomfortable, Behavior is agitated. Pain: Complains of pain in medial aspect of left knee, medial aspect of left calf and left medial ankle Pain does not radiate. Pain currently is 8 out of 10 on a pain scale. 20:15 Reassessment: No changes from previously documented assessment. Patient and/or family br2 updated on plan of care and expected duration. Pain level reassessed. Patient is alert, oriented x 3, equal unlabored respirations, skin warm/dry/pink. 21:15 Reassessment: Patient and/or family updated on plan of care and expected duration. Pain br2 level reassessed. Patient is alert, oriented x 3, equal unlabored respirations, skin warm/dry/pink. PT WANTS OUT OF BED TO GO TO BATHROOM...PT HOLLERING AND CURSING ABOUT THE PAIN WHILE TECH IS ASSISTING HIM. 22:37 Reassessment: ATTEMPTED TO GIVE PT PAIN MED AND HIS IV IS PARTIALLY PULLED OUT AND WILL br2 NOT FLUSH. Vital Signs: 17:25 BP 132 / 86; Pulse 83; Resp 19 S; Temp 98.7(O); Pulse Ox 94% on R/A; Weight 226.34 kg kc6 (M); Height 6 ft. 4 in. (R); Pain 9/10; 19:30 BP 129 / 62; Pulse 86; Resp 18; Pulse Ox 95% on R/A; br2 21:30 BP 136 / 67; Pulse 106; Resp 18; Pulse Ox 91% on R/A; br2 22:27 BP 115 / 57; Pulse 82; Resp 18; Pulse Ox 94% on 3 lpm SLEEP APNEA...UNTIL HE GETS CPAP; br2 17:25 Body Mass Index 60.74 (226.34 kg, 193.04 cm) kc6 17:25 Pain Scale: Adult [facility] ED Course: 17:21 Patient arrived in ED. kc6 17:22 [facility] sb4 17:22 Mikhail Mohr MD is Attending Physician. sb4 17:25 Elena Su, MAHI is Primary Nurse. kc6 17:26 Triage completed. kc6 17:26 Arm band placed on. kc6 17:27 Patient has correct armband on for positive identification. Bed in low position. Call kc6 light in reach. Side rails up X2. Pulse ox on. NIBP on. Door closed. Noise minimized. Lights dimmed. Pillow given. 17:50 Initial lab(s) drawn, by nc, sent to lab. Inserted saline lock: 22 gauge in right upper bp arm, using aseptic technique. Blood collected. Flushed with 10 mL NS. 19:41 Extremity Venous Uni Ltd US In Process Unspecified. EDMS 20:07 Tib Fib Left XRAY In Process Unspecified. EDMS 21:10 Jeff Hussein is Hospitalizing Provider. sb4 22:10 IV 22G RIGHT UPPER ARM PARTIALLY PULLED OUT AND WILL NOT FLUSH. DC'D. br2 22:15 Missed attempt(s): 20 gauge forearm. br2 22:20 Missed attempt(s): 20 gauge in left upper arm. br2 22:27 Inserted saline lock: 20 gauge in left upper arm, using aseptic technique. Blood br2 collected. Flushed with 10 mL NS. Administered Medications: 17:46 Drug: Ondansetron IVP 4 mg IVP once; over 2 minutes Route: IVP; Site: right upper arm; kc6 17:46 Drug: morphine IVP or IV 4 mg IVP once over 4 mins Route: IVP; Infused Over: 4 mins; kc6 Site: right upper arm; 19:53 Drug: morphine IVP or IV 4 mg IVP once over 4 mins Route: IVP; Infused Over: 4 mins; br2 Site: right antecubital; 22:24 Drug: fentaNYL (PF) IVP 50 mcg IVP once Route: IVP; Site: left upper arm; br2 22:24 Drug: Ketorolac IVP 30 mg IVP once Route: IVP; Site: left upper arm; br2 22:24 Drug: vancoMYCIN IVPB 1.5 grams IVPB at calculated rate once Route: IVPB; Rate: br2 calculated rate; Site: left upper arm; Outcome: 21:11 Decision to Hospitalize by Provider. sb4 02/27 00:04 Patient left the ED. ha1 Signatures: Dispatcher [employer] EDMS Jeffy Powell, RN Yoselin Isbell RN RN ha1 Elena Su RN RN kc6 Shelley Raymond, PAMarianne PAMarianne sb4 Irena Mar RN RN br2 Corrections: (The following items were deleted from the chart) 02/26 22:34 22:27 BP 115 / 57; Pulse 82bpm; Resp 18bpm; Pulse Ox 94% 3 lpm SLEEP APNEA....UNTIL HE br2 GETS CPA; br2 22:37 20:15 Reassessment: Patient and/or family updated on plan of care and expected br2 duration. Pain level reassessed. Patient is alert, oriented x 3, equal unlabored respirations, skin warm/dry/pink. PT WANTS OUT OF BED TO GO TO BATHROOM...PT HOLLERING AND CURSING ABOUT THE PAIN WHILE TECH IS ASSISTING HIM. br2 22:38 22:27 Inserted saline lock: 20 gauge in left upper arm, using aseptic technique. Blood br2 collected. Flushed with 10 mL NS br2 22:39 22:26 IV 22G RIGHT UPPER ARM PARTIALLY PULLED OUT AND WILL NOT FLUSH. DC'D. br2 br2
[2024-02-27] MEDS ORDERED: KETOROLAC 30 MG/ML INJ ONE (21:20)
[2024-02-27] MEDS ORDERED: VANCOMYCIN 500 MG/VIAL ONE (21:20)
[2024-02-27] MEDS ORDERED: VANCOMYCIN 1 GM/VIAL ONE (21:20)
[2024-02-27] MEDS ORDERED: FENTANYL CITR 100 MCG/2 ML ONE (21:21)
[2024-02-27] MEDS ORDERED: NA CHLORIDE 0.9% 250 ML ONE (21:21)
[2024-02-27] MEDS ORDERED: NA CHLORIDE 0.9% 100 ML ONE (21:22)
[2024-02-27] MEDS: METHYLPREDNISOLONE 125 MG INJ IV ONE (22:07)
--- NOTE | 2024-02-27 22:16 | P.HP ---
Certification for Inpatient With expected LOS: <2 Midnights Practitioner: I am a practitioner with admitting privileges, knowledge of patient current condition, hospital course, and medical plan of care. Services: Services provided to patient in accordance with Admission requirements found in Title 42 Section 412.3 of the Code of Federal Regulations Patient History Date of Service: 02/27/24 Reason for admission: cellulitis History of Present Illness: 53-year-old man with a past medical history significant for obesity, CHF, HTN, JERAD, and chronic cellulitis of left lower extremity [facility] complaining of left lower extremity pain/edema. Patient states he was recently discharged from [facility] for left lower extremity cellulitis. He states he was discharged on Augmentin and Linezolid for this. Also, the patient was found to have a DVT in his left lower extremity and was discharged on Xarelto for this. He states he has been compliant with Augmentin, Linezolid, and Xarelto for the past 5 days. However, the patient states his left lower extremity is still swollen and painful. He states that movement worsens his left lower extremity pain. Patient is a former smoker and states he quit years ago. He denies fever, dyspnea, and urinary symptoms. Allergies No Known Allergies Allergy (Unverified 07/10/23 10:34) Home medications list reviewed: Yes Home Medications: Apixaban [Eliquis] 5 mg PO DAILY 07/10/23 Amlodipine [Norvasc*] 5 mg PO DAILY 30 Days #30 tab 07/13/23 Amox/Clavulanate [Augmentin 875-125 Tab*] 875 mg PO BID 10 Days #20 tab 07/13/23 Apixaban [Eliquis] 5 mg PO BID 07/13/23 Benzonatate [Tessalon Perle*] 100 mg PO TID PRN 5 Days #15 cap 07/13/23 Mometasone/Formoterol [Dulera 200 Mcg/5 Mcg Inhaler] 2 puff IH BID 30 Days #1 inhaler 07/13/23 Salmeterol Xinafoate [Serevent Diskus] 50 mcg IH DAILY 30 Days #1 diskus 07/13/23 Spironolactone [Aldactone*] 25 mg PO BID 30 Days #60 tab 07/13/23 - Past Medical/Surgical History Diabetic: No -: CHFunknown EF -: Hypertension -: chronic cellulitis- on Xarelto -: Kidney stones -: JERAD Past Surgical History: Patient denies surgical history -: None Psychosocial/ Personal History: Lives at home with his - Family History Family History: Reviewed- Non-Contributory - Social History Smoking Status: Former smoker (quit "YEARS AGO") Alcohol use: No CD- Drugs: No Caffeine use: Yes Review of Systems Musculoskeletal: Leg Pain (left leg) Physical Examination - Vital Signs Temperature: 98.7 F Blood Pressure: 136/67 Pulse: 85 Respirations: 18 Pulse Ox (%): 97 (room air) - Physical Exam General: Alert, Oriented x3 HEENT: Atraumatic, Normocephalic Neck: JVD not distended Respiratory: Clear to auscultation bilaterally Cardiovascular: Regular rate/rhythm, No gallops, No rubs, No murmurs Gastrointestinal: Normal bowel sounds, Non-distended, No tenderness Musculoskeletal: Swelling (left leg edema, and warm to touch), Erythema (left leg to knee), Warmth (left leg) Integumentary: Skin lesion (b/l LE hyperpigmentation) Neurological: Normal strength at 5/5 x4 extr (5/5 except LLE 3/5-pain limited) - Studies Laboratory Data (last 24 hrs) 02/27/24 02/27/24 17:50 17:50 WBC 13.70 H Hgb 14.2 Hct 42.9 Plt Count 245 Sodium 132 L Potassium 3.9 BUN 17 Creatinine 1.55 H Glucose 124 H Uric Acid 8.5 H Total Bilirubin 1.3 H AST 13 L ALT 16 Alkaline Phosphatase 67 Assessment and Plan - Problems (Diagnosis) (1) Obesity Current Visit: Yes Status: Acute (2) Cellulitis Current Visit: Yes Status: Acute (3) JERAD (obstructive sleep apnea) Current Visit: Yes Status: Acute (4) Chronic diastolic heart failure Current Visit: No Status: Acute (5) Hypertension Current Visit: No Status: Acute - Plan Cellulitis: Admit to floor for left lower extremity cellulitis US left LE revealed acute thrombus of left posterior tibial vein Left LE XR revealed no fracture, diffuse edema Continue vancomycin Zosyn ordered Solu-Medrol 60 once ordered Blood cultures collected Procalcitonin ordered Normal lactate Given Zofran, morphine, vancomycin, ketorolac, and fentanyl in ED JERAD: CPAP at bedtime ordered HTN: Resume home medication CHF: Not taking any medication Will monitor for volume overload Obesity: The patient has been counseled on the importance of weight loss. He voiced understanding, and all of his questions were answered to his satisfaction - Advance Directives Does patient have a Living Will: No Does patient have a Durable POA for Healthcare: No
[2024-02-28 00:56] VITALS: BMI 57.8
[2024-02-28 04:51] LABS: Absolute Basophils 0.1 K/uL (0-0.5); Absolute Lymphocytes (CBC) 1.3 K/uL (0.7-4.9); Absolute Monocytes 1.1 K/uL (0.1-1.3); Absolute Neutrophil 11.3 K/uL (1.8-8.0); Basophils % 0.4 % (0-1.3); Eosinophils % 0.3 % (0-4.4); Hematocrit 40.3 % (39.6-49.0); Hemoglobin 13.5 g/dL (13.6-17.9); Lymphocytes % 9.4 % (15.3-44.8); MCH 32.3 pg (27.0-35.0); MCHC 33.6 g/dL (32.0-36.0); MCV 96.1 fL (80-100); MPV 8.4 fL (7.6-11.3); Monocytes % 8.2 % (3.3-12.3); Neutrophils % 81.7 % (41.7-73.7); Platelets 218 thou/uL (152-406); Red Cell Distribution Width 12.9 % (12.1-15.2)
[2024-02-28 05:09] LABS: ALT/SGPT 18 U/L (16-61); Albumin 2.8 g/dL (3.4-5.0); Albumin/Globulin Ratio 0.6 (1.1-1.8); Alkaline Phosphatase 69 U/L (45-117); Anion Gap 8.7 mEq/L (5.0-15.0); BUN Blood Urea Nitrogen 23 mg/dL (7-18); Bicarbonate 31 mEq/L (21-32); Bilirubin Direct 0.4 mg/dL (0-0.2); Bilirubin Indirect, Calculated 0.9 mg/dL (0.2-0.8); Bilirubin Total 1.3 mg/dL (0.2-1.0); Creatine Phosphokinase 77 U/L (39-308); Globulin 4.7 g/dL (2.3-3.5); Glomerular Filtration Rate 45 ml/min (=/>90); Glucose Level 143 mg/dL (74-106); HDL Cholesterol 47 mg/dL (40-60); LDL Cholesterol, Calculated 71 mg/dL (<130); LDL Cholesterol,Calc NonReport 71; Magnesium 2.4 mg/dL (1.6-2.4); NT PRO-BNP 376 pg/mL (<125); Phosphorus 4.6 mg/dL (2.5-4.9); Potassium 3.7 mEq/L (3.5-5.1); Protein, Total 7.5 g/dL (6.4-8.2); Sodium Level 134 mEq/L (136-145)
[2024-02-28 05:13] LABS: AST/SGOT < 10 U/L (15-37)
[2024-02-28 06:32] LABS: Specific Gravity 1.021 (1.005-1.030); Sqamous Epithelial <5 /HPF (None Seen); Urine Bacteria None Seen /HPF (<20); Urine Bilirubin NEGATIVE (Negative); Urine Blood Negative (Negative); Urine Clarity Extremely Turbid (Clear); Urine Color Yellow (Yellow); Urine Culture Reflex Order NOT NEEDED; Urine Glucose NEGATIVE (Negative); Urine Ketones NEGATIVE (Negative); Urine Microscopic Reflex YN ORDER UMIC; Urine Mucus 1+ /HPF (None Seen); Urine Nitrite NEGATIVE (Negative); Urine Protein 1+ (Negative); Urine RBC <5 /HPF (None Seen); Urine Urobilinogen Normal (Normal); Urine WBC <5 /HPF (<5); Urine pH 5.5 (5.0-7.0)
[2024-02-28] MEDS ORDERED: VANCOMYCIN 1 GM in NA CHLORIDE 0.9% 250 ML IVPB SCH (08:00)
[2024-02-28] MEDS: POTASSIUM CL SA 10 MEQ TAB PO ONE (08:11)
[2024-02-28] MEDS: ENOXAPARIN 40 MG/0.4 ML SQ SCH (08:11)
[2024-02-28] MEDS: PIPER TAZO 3.375 GM in NA CHLORIDE 0.9% 100 ML IV SCH (08:12)
[2024-02-28] MEDS: MORPHINE 4 MG/ML SYR IV PRN (10:04)
--- NOTE | 2024-02-28 13:20 | P.PN ---
Subjective Date of Service: 02/28/24 Chief Complaint: cellulitis Subjective: Improving (Pt states his left lower leg is significantly improved over what it looked like 7 days ago. He was admitted at [facility] on IV abx. He has lymphedema bilaterally, US + for DVT but need clarification if acute or chronic. Noted blistering to dorsal left foot) Review of Systems 10-point ROS is otherwise unremarkable General: Unremarkable Eyes: Unremarkable ENT: Unremarkable Respiratory: Unremarkable Cardiovascular: Unremarkable Gastrointestinal: Unremarkable Genitourinary: Unremarkable Musculoskeletal: Leg Pain, Other (improved over admit) Integumentary: Other (vesicular rash over dorsum of left foot, pt states cellulitis started on lateral surface above his bootline) Neurological: Unremarkable Lymphatics: Unremarkable Physical Examination - Vital Signs Temperature: 97.6 F Blood Pressure: 125/62 Pulse: 67 Respirations: 14 Pulse Ox (%): 96 - Physical Exam General: Alert, In no apparent distress, Oriented x3, Obese HEENT: Atraumatic, Normocephalic Neck: Supple Respiratory: Normal air movement Cardiovascular: Regular rate/rhythm, Normal S1 S2 Capillary refill: <2 Seconds Gastrointestinal: Normal bowel sounds Musculoskeletal: Other (lower ext lymphedema) Integumentary: Other (chronic discoloration, +tiny vesicles to dorsum of left foot. ) Neurological: Normal speech, Normal tone, Normal affect Lymphatics: No axilla or inguinal lymphadenopathy External genitalia: Deferred Rectal: Deferred - Studies Laboratory Data (last 24 hrs) 02/27/24 02/27/24 17:50 17:50 WBC 13.70 H Hgb 14.2 Hct 42.9 Plt Count 245 Sodium 132 L Potassium 3.9 BUN 17 Creatinine 1.55 H Glucose 124 H Uric Acid 8.5 H Total Bilirubin 1.3 H AST 13 L ALT 16 Alkaline Phosphatase 67 Assessment And Plan - Plan Assessment and Plan - Problems (Diagnosis) (1) Obesity Current Visit: Yes Status: Acute (2) Cellulitis Current Visit: Yes Status: Acute (3) JERAD (obstructive sleep apnea) Current Visit: Yes Status: Acute (4) Chronic diastolic heart failure Current Visit: No Status: Acute (5) Hypertension Current Visit: No Status: Acute (6) Lymphedema - Plan Cellulitis: Admit to floor for left lower extremity cellulitis US left LE revealed acute thrombus of left posterior tibial vein (need verification if acute or chronic, pt was on Eliquis in July and then on Xarelto per [facility] last week) Left LE XR revealed no fracture, diffuse edema Continue vancomycin Zosyn ordered Blood cultures collected Procalcitonin ordered Normal lactate Given Zofran, morphine, vancomycin, ketorolac, and fentanyl in ED JERAD: CPAP at bedtime ordered HTN: Resume home medication Pt takes amlodipine at home, not great choice secondary to lower ext edema/lymphedema, cannot start Lisinopril second to creat 1.78 today. Pressure 120s over 60s, will restart lasix and re-eval blood pressure CHF: Not taking any medication Will monitor for volume overload Pt apparently takes Lasix 80mg po BID- will restart 40mg IV daily Obesity: The patient has been counseled on the importance of weight loss. He voiced understanding, and all of his questions were answered to his satisfaction Lymphedema Wrap bilat lower ext with vaishnavi - Advance Directives Does patient have a Living Will: No Does patient have a Durable POA for [facility] Discharge Plan: Home Plan to discharge in: 24 Hours - Code Status/Comfort Care Code Status Assessed: Yes (Full) Time Spent Managing PTS Care (In Minutes): 30
[2024-02-28] MEDS: FUROSEMIDE 40 MG/4 ML VIAL IV SCH (13:56)
[2024-02-28] MEDS ORDERED: VANCOMYCIN 1.5 GM in NA CHLORIDE 0.9% 500 ML IVPB SCH (15:00)
[2024-02-28] MEDS ORDERED: VANCOMYCIN 2 GM in NA CHLORIDE 0.9% 500 ML IVPB SCH (15:00)
[2024-02-28] MEDS: AMOX/K CLAV 875 MG TAB PO SCH (15:56)
[2024-02-28] MEDS: LINEZOLID 600 MG TAB PO SCH (20:51)
[2024-02-28] MEDS: KETOROLAC 30 MG/ML INJ IV PRN (20:56)
[2024-02-28] MEDS: ACETAMINOPHEN 325 MG TABLET PO PRN (20:57)
[2024-02-29 07:54] LABS: Absolute Basophils 0.1 K/uL (0-0.5); Absolute Eosinophils 0.2 K/uL (0-0.5); Absolute Lymphocytes (CBC) 1.1 K/uL (0.7-4.9); Absolute Monocytes 0.9 K/uL (0.1-1.3); Absolute Neutrophil 7.9 K/uL (1.8-8.0); Basophils % 0.6 % (0-1.3); Eosinophils % 1.9 % (0-4.4); Hematocrit 37.6 % (39.6-49.0); Hemoglobin 12.6 g/dL (13.6-17.9); Lymphocytes % 11.1 % (15.3-44.8); MCH 32.6 pg (27.0-35.0); MCHC 33.5 g/dL (32.0-36.0); MCV 97.4 fL (80-100); MPV 8.1 fL (7.6-11.3); Monocytes % 8.7 % (3.3-12.3); Neutrophils % 77.7 % (41.7-73.7); Platelets 179 thou/uL (152-406); RBC Red Blood Cell Count 3.86 M/uL (4.33-5.43); Red Cell Distribution Width 12.8 % (12.1-15.2)
[2024-02-29 08:07] LABS: Anion Gap 6.5 mEq/L (5.0-15.0); Potassium 3.5 mEq/L (3.5-5.1)
[2024-02-29] MEDS: HYDROCODONE/APAP 7.5/325 MG TAB PO ONE (09:39)
[2024-02-29 12:22] VITALS: BP 137/65; TEMP 97.9
--- NOTE | 2024-02-29 12:36 | P.DS ---
Admission Date: 02/27/24 Discharge Date: 02/29/24 Disposition: ROUTINE DISCHARGE Discharge Condition: GOOD Reason for Admission: cellulitis Brief History of Present Illness: 53-year-old man with a past medical history significant for obesity, CHF, HTN, JERAD, and chronic cellulitis of left lower extremity [facility] of left lower extremity pain/edema. Patient states he was recently discharged from [facility] for left lower extremity cellulitis. He states he was discharged on Augmentin and Linezolid for this. Also, the patient was found to have a DVT in his left lower extremity and was discharged on Xarelto for this. He states he has been compliant with Augmentin, Linezolid, and Xarelto for the past 5 days. However, the patient states his left lower extremity is still swollen and painful. He states that movement worsens his left lower extremity pain. Patient is a former smoker and states he quit years ago. He denies fever, dyspnea, and urinary symptoms. Hospital Course: Mr. Loyd slept well overnight. He is feeling better. State the toradol and colchicine actually relieved his pain better than morphine. He continued of outpatient antibiotics and we believe the increase in pain in his leg was more from gout/lymphedema than actually bacterial infection. He needs to follow up with his PCP and a lymphedema clinic. Amlodipine for blood pressure was discontinued 2nd to lower leg edema. As he takes Lasix 80mg po BID, we will begin him on Losartan. His creatinine had trended up to 1.78 but is back down to 1.3 this am. Creatinine with GFR will need continued monitoring. Vital Signs/Physical Exam: Temp Pulse Resp BP Pulse Ox 97.9 F 74 16 137/65 93 02/29/24 12:00 02/29/24 12:00 02/29/24 12:00 02/29/24 12:00 02/29/24 12:00 General: Alert, In no apparent distress, Oriented x3, Obese HEENT: Atraumatic, Normocephalic Neck: Supple Respiratory: Normal air movement Cardiovascular: Regular rate/rhythm, Normal S1 S2 Capillary refill: <2 Seconds Gastrointestinal: Soft and benign Musculoskeletal: No clubbing, Other (+lymphedema) Integumentary: Other (minimal erythema to dorsum of left foot, no vesicles, bilat legs wrapped with vaishnavi.) Neurological: Normal speech, Normal tone, Normal affect Lymphatics: No axilla or inguinal lymphadenopathy External genitalia: Deferred Rectal: Deferred Laboratory Data at Discharge: WBC 10.20 thou/uL (4.3-10.9) 02/29/24 07:28 Hgb 12.6 g/dL (13.6-17.9) L 02/29/24 07:28 Hct 37.6 % (39.6-49.0) L 02/29/24 07:28 Plt Count 179 thou/uL (152-406) 02/29/24 07:28 Sodium 137 mEq/L (136-145) 02/29/24 07:28 Potassium 3.5 mEq/L (3.5-5.1) 02/29/24 07:28 BUN 26 mg/dL (7-18) H 02/29/24 07:28 Creatinine 1.39 mg/dL (0.70-1.30) H 02/29/24 07:28 Glucose 126 mg/dL (74-106) H 02/29/24 07:28 Uric Acid 8.5 mg/dL (3.5-7.2) H 02/27/24 17:50 Phosphorus 4.6 mg/dL (2.5-4.9) 02/28/24 04:15 Magnesium 2.4 mg/dL (1.6-2.4) 02/28/24 04:15 Total Bilirubin 1.3 mg/dL (0.2-1.0) H 02/28/24 04:15 AST < 10 U/L (15-37) L 02/28/24 04:15 ALT 18 U/L (16-61) 02/28/24 04:15 Alkaline Phosphatase 69 U/L (45-117) 02/28/24 04:15 Triglycerides 68 mg/dL (<150) 02/28/24 04:15 Cholesterol 132 mg/dL (<200) 02/28/24 04:15 HDL Cholesterol 47 mg/dL (40-60) 02/28/24 04:15 Cholesterol/HDL Ratio 2.81 02/28/24 04:15 Home Medications: Amox/Clavulanate [Augmentin 875-125 Tab*] 875 mg PO BID 10 Days #20 tab 07/13/23 Furosemide [Lasix] 80 mg PO BID 02/28/24 Linezolid 600 mg PO BID 02/28/24 Tramadol HCl [Ultram] 50 mg PO Q6HR PRN 02/28/24 Acetaminophen [Tylenol*] 650 mg PO Q4HP PRN tab 02/29/24 Colchicine 0.6 mg PO DAILY #10 cap 02/29/24 Losartan Potassium [Cozaar*] 50 mg PO DAILY #90 tablet 02/29/24 Rivaroxaban [Xarelto] 20 mg PO DAILY #90 tab 02/29/24 New Medications: Colchicine 0.6 mg PO DAILY #10 cap Losartan Potassium [Cozaar*] 50 mg PO DAILY #90 tablet Rivaroxaban [Xarelto] 20 mg PO DAILY #90 tab Diet: AHA Activity: Ad marcelo Followup: Denilson Quinteros MD [Primary Care Provider] -
[2024-02-29] MEDS: COLCHICINE 0.6 MG TAB PO SCH (12:40)
[2024-02-29] MEDS ORDERED: RIVAROXABAN 20 MG TABLET PO SCH (17:00)
[2024-02-29 17:22] VITALS: O2SAT 94
== END 2024-02-29 17:47 | disposition home or self-care (01) | DRG 603 ==
LOC: ER 17:17 → ERHOLD 22:08 → 2ND 23:36
PROVIDERS: ADMIT Hospitalist; ATTEND Hospitalist
PROC: 5A09457 Assistance with Respiratory Ventilation, 24-96 Consecutive Hours, Continuous Positive Airway Pressure (ICD-10-PCS; principal; 2024-02-27)
DX: L03.116 Cellulitis of left lower limb (principal); I82.442 Acute embolism and thrombosis of left tibial vein; I50.32 Chronic diastolic (congestive) heart failure; Z68.44 Body mass index [BMI] 60.0-69.9, adult; E66.01 Morbid (severe) obesity due to excess calories; I11.0 Hypertensive heart disease with heart failure; I89.0 Lymphedema, not elsewhere classified; G47.33 Obstructive sleep apnea (adult) (pediatric); Z71.89 Other specified counseling; Z79.01 Long term (current) use of anticoagulants; Z79.899 Other long term (current) drug therapy; Z87.891 Personal history of nicotine dependence
CPT/HCPCS: 36415; 80048; 80053; 80061; 80202; 81001; 82248; 82550; 83605; 83735; 83880; 84100; 84145; 84443; 84550; 85025; 86140; 87040; 93971; 94660; 94760; 99284; J1650; J1940; J2405; J2543; J3010; J7040; J7050

== ENCOUNTER 2024-09-01 11:44 | Emergency (ER) | payer BC ==
--- OUTSIDE RECORDS SUMMARY | 2024-09-01 11:49 | XMS REPORT | Continuity of Care Document ---
Author Name Unknown Address [address] [facility] [address] [place] [address] [facility] [place] Address [address] [facility] [address] [place] [address] Care Team Providers Care Inside Account Representative Name Role Phone Jaylene Segura MD Primary Care Physician JAYLENE SEGURA Attending Clinician Nathan Segura MD, Jaylene Zuñiga Attending Clinician + [phone] Doctor Unassigned, [place] Attending Clinician U gurpreet Dawn RN, Iliana Solo Attending Clinician Unavail able SRIRAM HUGHES Attending Clinician Unavailable David Bermudez MD Attending Clinician [phone] Sriram Hughes MD Attending Clinician [phone] Jaylene Segura MD Attending Clinician + [phone] [facility] Attending Clinician Zoraida Sandy MD Attending Clinician + [phone] ZORAIDA NIXON Attending Clinician ZORAIDA Sandy Attending Clinician Unavailajay holder Doctor Unassigned, [place] Attending Clinician U DUSTY Walls Attending Clinician Unavailable Dusty Correia DO Attending Clinician [phone] Renee Rivera Attending Clinician [phone] RENEE MICHELLE Attending Clinician Unavailable Rory CHAUDHARI, Diane Cardenas Attending Clinician + [phone] Kaelyn DUDLEY Attending Clinician Unavailable Kaelyn Nolasco Attending Clinician [phone] Segundo GIS APPLICATION DEVELOPER, Marjorie K Attending Clinician Unavail able Cesar Luo MD Attending Clinician [phone] Praveen Delgado PT, Rola Attending Clinician Un available CESAR LUO Attending Clinician Unavailabl e Lab, Ang - Db Attending Clinician Unavailable DIANE FELTON Attending Clinician Unavailajay Brown RN, Balta Moss Attending Clinician Unavail able Katlin Rosenthal MD Attending Clinician [phone] MANNY MACIAS Attending Clinician UnavailManny Cruz Attending Clinician [phone] MARIA SANTIAGO Attending Clinician Unavailable SRIRAM HUGHES Admitting Clinician Unavailable Sriram Hughes MD Admitting Clinician [phone] DUSTY CORREIA Admitting Clinician Unavailable Kaelyn DUDLEY Admitting Clinician Unavailable Katlin Rosenthal MD Admitting Clinician [phone] MANNY MACIAS Admitting Clinician UnavailMARIA Bates Admitting Clinician Unavailable Payers Payer Name Policy Type Policy Number Effective Date Expirati on Date Source [facility] [id number] 2017 00:00:00 Problems Condition Name Condition Details Condition Category Status Onset Date Resolution Date Last Treatment Date Treating Clinician Comments Source Pain of left lower extremity Pain of left lower extremity Disease Active 2023-04 00:00: 00 [facility] Acute cough Acute cough Disease Active 08-04 00:00: 00 [facility] Snoring Snoring Disease Active 08-04 00:00: 00 [facility] Class 3 drug-induc ed obesity with serious comorbidit y and body mass index (BMI) of 50.0 to 59.9 in adult Class 3 drug-induc ed obesity with serious comorbidit y and body mass index (BMI) of 50.0 to 59.9 in adult Disease Active 08-04 00:00: 00 [facility] Acute cough Acute cough Disease Active 4 00:00: 00 [facility] Viral infection Viral infection Disease Active 08-04 00:00: 00 [facility] Urinary incontinen ce, nocturnal enuresis Urinary incontinen ce, nocturnal enuresis Disease Active 08-04 00:00: 00 [facility] PVC (premature ventricula r contractio n) PVC (premature ventricula r contractio n) Disease Active 8- 00:00: 00 [facility] PVC (premature ventricula r contractio n) PVC (premature ventricula r contractio n) Disease Active 8 00:00: 00 [facility] Hypokalemi a Hypokalemi a Disease Active 8 00:00: 00 [facility] Cellulitis of left leg Cellulitis of left leg Disease Active 8 00:00: 00 [facility] Chronic diastolic congestive heart failure Chronic diastolic congestive heart failure Disease Active 10-09 00:00: 00 [facility] Cellulitis Cellulitis Disease Active 10-05 00:00: 00 [facility] Essential hypertensi on Essential hypertensi on Disease Active 0 10-05 00:00: 00 [facility] Dyslipidem ia Dyslipidem ia Disease Active 10-05 00:00: 00 [facility] Stage 3 chronic kidney disease Stage 3 chronic kidney disease Disease Active 10-05 00:00: 00 [facility] History of DVT (deep vein thrombosis ) History of DVT (deep vein thrombosis ) Disease Active 10-05 00:00: 00 [facility] Elevated troponin I level Elevated troponin I level Disease Active 10-05 00:00: 00 [facility] TIERRA (acute kidney injury) TIERRA (acute kidney injury) Disease Active 2018-04 00:00: 00 [facility] DVT (deep venous thrombosis ) DVT (deep venous thrombosis ) Disease Active 2018-04 00:00: 00 [facility] TIERAR (acute kidney injury) TIERRA (acute kidney injury) Disease Active 2018-04 00:00: 00 [facility] Cellulitis of left lower extremity Cellulitis of left lower extremity Disease Active 2018-04 00:00: 00 [facility] Pneumonia Pneumonia Disease Active 2018-04 00:00: 00 [facility] Morbid obesity with body mass index of 50 or higher Morbid obesity with body mass index of 50 or higher Disease Active 2018-04 00:00: 00 [facility] Allergies, Adverse Reactions, Alerts Allergy Name Allergy Type Status Severity Reaction(s) Onset Date Inactive Date Treating Clinician Comments Source NO KNOWN ALLERGIE S Drug Class Active [facility] Social History Social Habit Start Date Stop Date Quantity Comments Source [facility] History of Social function 2024-02-24 00:00:00 2024-02-24 00:00:00 [facility] Alcohol intake 2023-05-04 00:00:00 2023-05-04 00:00:00 Ex-drinker (finding) [facility] Exposure to SARS-CoV-2 (event) 2022-08-08 00:00:00 2022-08-18 09:27:00 Not sure [facility] Alcoholic beverage intake 2021-06-12 00:00:00 2021-06-12 00:00:00 Ex-drinker (finding) [facility] Cigarettes smoked current (pack per day) - Reported 2019-11-22 00:00:00 2019-11-22 00:00:00 [facility] Cigarette pack-years 2019-11-22 00:00:00 2019-11-22 00:00:00 [facility] Tobacco use and exposure 2019-11-22 00:00:00 2019-11-22 00:00:00 Former smokeless tobacco user [facility] History SDOH Food Worry 2019-03-09 00:00:00 2019-03-09 00:00:00 1 [facility] History SDOH Food Scarcity 2019-03-09 00:00:00 2019-03-09 00:00:00 1 [facility] History SDOH Transport Med 2019-03-09 00:00:00 2019-03-09 00:00:00 2 [facility] History SDOH Transport Non-Med 2019-03-09 00:00:00 2019-03-09 00:00:00 2 [facility] History of tobacco use 2019-03-06 00:00:00 Chews Tobacco [facility] Sex assigned at 1970 00:00:00 1970 00:00:00 [facility] Smoking Status Start Date Stop Date Source Ex-smoker 2019-11-22 00:00:00 2019-11-22 [facility] Ordered Medication Name Filled Medication Name Start Date Stop Date Current Medication? Ordering Clinician Indication Dosage Frequency Signature (SIG) Comments Components Source rivaroxaban (XARELTO) 20 mg tablet 05-31 14:24: 12 05-31 00:00 :00 No 20mg Take 1 tablet by mouth. [facility] rivaroxaban (XARELTO) 20 mg tablet 05-31 00:00: 00 Yes [id number] 20mg Take 1 tablet by mouth in the morning. Indication s: DVT prevention , history of deep vein thrombosis [facility] losartan 50 mg tablet 2023-04 15:21: 59 03-13 00:00 :00 No 50mg Take 1 tablet by mouth in the morning. [facility] losartan 100 mg tablet 2023-04 00:00: 00 Yes [id number] 100mg Take 1 tablet by mouth in the morning. [facility] colchicine 0.6 mg tablet 2023-04 00:00: 00 Yes [id number] .6mg Take 1 tablet by mouth in the morning. [facility] allopurinoL 300 mg tablet 2023-04 00:00: 00 Yes [id number] 300mg Take 1 tablet by mouth in the morning. [facility] traMADoL 50 mg tablet 2023-04 00:00: 00 03-03 05:59 :00 No [id number] 50mg Take 1 tablet by mouth every 6 (six) hours as needed (pain) for up to 7 days. Indication s: acute pain [facility] rivaroxaban (XARELTO) tablet 15 mg 2023-04 02:00: 00 Yes 15mg 15 mg, Oral, BID, First dose on Wed02/18/24 at 2000, Until Discontinu ed, Routine [facility] rivaroxaban 15 mg tablet 2023-04 00:00: 00 03-21 05:59 :00 No [id number] 15mg Take 1 tablet by mouth in the morning and 1 tablet in the evening. Do all this for 30 days. Indication s: history of deep vein thrombosis [facility] linezolid 600 mg tablet 2023-04 00:00: 00 03-01 05:59 :00 No [id number] 600mg Take 1 tablet by mouth every 12 (twelve) hours for 10 days. [facility] amoxicillin -clavulanat e 875-125 mg per tablet 2023-04 00:00: 00 03-01 05:59 :00 No [id number] 1{tbl} Take 1 tablet by mouth in the morning and 1 tablet in the evening. Do all this for 10 days. [facility] spironolact one (ALDACTONE) tablet 25 mg 2023-04 15:00: 00 02-18 20:32 :00 No 25mg 25 mg, Oral, DAILY, First dose on Wed02/18/24 at 0900, Until Discontinu ed, Routine [facility] furosemide (LASIX) injection 80 mg 2023-04 14:00: 00 02-18 20:32 :00 No 80mg 80 mg, Slow IV Push, Q12H, First dose on Wed02/18/24 at 0800, Until Discontinu ed, Routine [facility] vancomycin (VANCOCIN/X ELLIA) 1,250 mg in 250 [...] Soft Tissue, Duration of Therapy: 7 days [facility] ampicillin- sulbactam (UNASYN) 3 g in NaCl 0.9% (NS) 100 mL MINI-BAG 2023-04 05:00: 00 02-18 20:32 :00 No 3g 3 g, IV Piggyback, Q8H ABX, First dose (after last reorder) on Verena 02/17/24 at 2300, Until Discontinu ed, Administer over 30 Minutes, 100 mL, Reason for Anti-Infec tive: Documented Infection, Documented Infection Site: Skin / Soft Tissue, Duration of Therapy: 7 days [facility] furosemide (LASIX) injection 40 mg 2023-04 03:00: 00 02-17 02:19 :00 No 40mg 40 mg, Slow IV Push, ONCE, 1 dose, On Wed02/17/24 at 2100, Routine [facility] amLODIPine (NORVASC) tablet 5 mg 2023-04 02:00: 00 02-18 20:32 :00 No 5mg 5 mg, Oral, BID, First dose on Wed02/17/24 at 2000, Until Discontinu ed, Routine [facility] apixaban (ELIQUIS) tablet 5 mg 2023-04 02:00: 00 02-17 23:03 :12 No 5mg 5 mg, Oral, BID, First dose on Wed02/17/24 at 2000, Until Discontinu ed, Routine, Indication s: DVT/PE [facility] ondansetron (ZOFRAN (PF)) injection 4 mg 2023-04 23:19: 49 02-18 20:32 :00 No 4mg [facility] HYDROcodone -acetaminop hen (NORCO 5) tablet 1 tablet 2023-04 23:19: 41 02-18 20:32 :00 No 1{tbl} 1 tablet, Oral, Q6HPRN, Starting on Verena 02/17/24 at 1719, Until 02/19/24 at 1432, Routine, Pain (scale 4-6) [facility] acetaminoph en (TYLENOL) tablet 650 mg 2023-04 23:19: 36 02-18 20:32 :00 No 650mg [facility] vancomycin (VANCOCIN) 1,000 mg in NaCl 0.9% (NS) 250 mL VIAL-MATE IV piggyback 2023-04 21:15: 00 02-16 22:35 :00 No 1000mg 1,000 mg, IV Piggyback, ONCE, 1 dose, On Verena 02/17/24 at 1515, Administer over 60 Minutes, 250 mL, Reason for Anti-Infec tive: Documented Infection, Documented Infection Site: Skin / Soft Tissue, Duration of Therapy: Once (ED) [facility] morpHINE (4 mg/mL) injection 6 mg 2023-04 20:45: 00 02-16 20:45 :00 No 6mg 6 mg, Slow IV Push, ONCE, 1 dose, On Verena 02/17/24 at 1445, STAT [facility] ampicillin- sulbactam (UNASYN) 3 g in NaCl 0.9% (NS) 100 mL MINI-BAG 2023-04 20:30: 00 02-16 21:30 :00 No 3g 3 g, IV Piggyback, ONCE, 1 dose, On Verena 02/17/24 at 1430, Administer over 30 Minutes, 100 mL, Reason for Anti-Infec tive: Documented Infection, Documented Infection Site: Skin / Soft Tissue, Duration of Therapy: Once (ED) [facility] furosemide (LASIX) injection 40 mg 2023-04 20:30: 00 02-16 20:45 :00 No 40mg 40 mg, IV Push, ONCE, 1 dose, On Verena 02/17/24 at 1430, KACY [facility] ELIQUIS 5 mg tablet 1 1-04 00:00: 00 02-18 00:00 :00 No [id number] TAKE 1 TABLET BY MOUTH IN THE MORNING AND EVENING TO PREVENT RECURRENCE OF A CLOT IN A DEEP VEIN [facility] ELIQUIS 5 mg tablet 1 0-01 00:00: 00 Yes [id number] 9108 TAKE 1 TABLET BY MOUTH IN THE MORNING AND EVENING TO PREVENT RECURRENCE OF A CLOT IN A DEEP VEIN [facility] ELIQUIS 5 mg tablet 2023-0 8-19 00:00: 00 01-10 00:00 :00 No [id number] [id number] TAKE 1 TABLET BY MOUTH IN THE MORNING AND EVENING TO PREVENT RECURRENCE OF A CLOT IN A DEEP VEIN [facility] ELIQUIS 5 mg tablet 2023-0 6-26 00:00: 00 11-28 00:00 :00 No [id number] 9108 TAKE 1 TABLET BY MOUTH IN THE MORNING AND EVENING TO PREVENT RECURRENCE OF A CLOT IN A DEEP VEIN [facility] ELIQUIS 5 mg tablet 2023-0 5-29 00:00: 00 Yes [id number] 9108 TAKE 1 TABLET BY MOUTH IN THE MORNING AND EVENING TO PREVENT RECURRENCE OF A CLOT IN A DEEP VEIN [facility] amLODIPine 5 mg tablet 2023-0 5-14 00:00: 00 05-31 00:00 :00 No [id number] 5mg Take 1 tablet by mouth every morning. [facility] ELIQUIS 5 mg tablet 2023-0 4-25 00:00: 00 09-07 00:00 :00 No [id number] 9108 TAKE 1 TABLET BY MOUTH IN THE MORNING AND EVENING TO PREVENT RECURRENCE OF A CLOT IN A DEEP VEIN [facility] ELIQUIS 5 mg tablet 2023-0 2-21 00:00: 00 Yes [id number] 9108 TAKE 1 TABLET BY MOUTH IN THE MORNING AND EVENING TO PREVENT RECURRENCE OF A CLOT IN A DEEP VEIN [facility] ELIQUIS 5 mg tablet 2023-0 1-15 00:00: 00 06-02 00:00 :00 No [id number] 9108 TAKE 1 TABLET BY MOUTH IN THE MORNING AND EVENING TO PREVENT RECURRENCE OF A CLOT IN A DEEP VEIN [facility] CARVEDILOL 25 mg tablet 1- 00:00: 00 08-23 00:00 :00 No [id number] TAKE 1 TABLET BY MOUTH IN THE MORNING AND IN THE EVENING WITH MEALS [facility] ELIQUIS 5 mg tablet 2022-04 2-05 00:00: 00 04-26 00:00 :00 No [id number] 9108 TAKE 1 TABLET BY MOUTH IN THE MORNING AND EVENING TO PREVENT RECURRENCE OF A CLOT IN A DEEP VEIN [facility] ELIQUIS 5 mg tablet 2022-04 00:00: 00 Yes [id number] 9108 TAKE 1 TABLET BY MOUTH IN THE MORNING AND EVENING TO PREVENT RECURRENCE OF A CLOT IN A DEEP VEIN [facility] cefTRIAXone (ROCEPHIN) 350 mg/mL in Lidocaine 1 % injection 500 mg 01-04 03:30: 00 01-04 02:43 :00 No 500mg 500 mg, Intramuscu lar, ONCE, 1 dose, On 01/03/23 at 2230, KACY
Re ason for Anti-Infec tive: Empiric Therapy for Suspected Infection< br>Empiric Therapy Site: Skin / Soft tissue
Duration of therapy: 72 hours [facility] cephALEXin (KEFLEX) 500 mg capsule 01-03 00:00: 00 01-11 04:59 :00 No [id number] 500mg Take 1 capsule by mouth in the morning and 1 capsule at noon and 1 capsule in the evening. Do all this for 7 days. [facility] sulfamethox azole-trime thoprim 800-160 mg per tablet 01-03 00:00: 00 01-11 04:59 :00 No [id number] 1{tbl} Take 1 tablet by mouth in the morning and 1 tablet in the evening. Do all this for 7 days. [facility] ELIQUIS 5 mg tablet 12-22 00:00: 00 02-03 00:00 :00 No [id number] 9108 TAKE 1 TABLET BY MOUTH IN THE MORNING AND EVENING TO PREVENT RECURRENCE OF A CLOT IN A DEEP VEIN [facility] ELIQUIS 5 mg tablet 0 8-09 00:00: 00 Yes [id number] 9108 TAKE 1 TABLET BY MOUTH IN THE MORNING AND EVENING TO PREVENT RECURRENCE OF A CLOT IN A DEEP VEIN [facility] CARVEDILOL 25 mg tablet 7-06 00:00: 00 04-13 00:00 :00 No TAKE 1 TABLET BY MOUTH IN THE MORNING AND IN THE EVENING WITH MEALS [facility] apixaban (ELIQUIS) 5 mg tablet 05 00:00: 00 Yes [id number] 5mg Take 1 tablet by mouth in the morning and 1 tablet in the evening. Indication s: treatment to prevent recurrence of a clot in a deep vein [facility] LORATADINE 10 mg tablet 6-08 00:00: 00 08-23 00:00 :00 No [id number] TAKE 1 TABLET BY MOUTH EVERY DAY IN THE MORNING [facility] LORATADINE 10 mg tablet 09-06 00:00: 00 Yes [id number] TAKE 1 TABLET BY MOUTH EVERY DAY IN THE MORNING [facility] amoxicillin 875 mg tablet 509 00:00: 00 05-18 00:00 :00 No [id number] 875mg Take 1 tablet by mouth in the morning and 1 tablet in the evening. [facility] ELIQUIS 5 mg tablet 5-07 00:00: 00 10-14 00:00 :00 No [id number] 9108 TAKE 1 TABLET BY MOUTH TWICE DAILY [facility] loratadine (CLARITIN) 10 mg tablet 0 4-25 00:00: 00 09-06 00:00 :00 No [id number] 10mg Take 1 tablet by mouth in the morning. [facility] benzonatate 200 mg capsule 4-25 00:00: 00 08-12 04:59 :00 No [id number] 200mg Take 1 capsule by mouth 3 (three) times daily as needed for Cough for up to 7 days. [facility] apixaban (ELIQUIS) 5 mg tablet 4-07 00:00: 00 08-16 22:43 :58 No [id number] 9108 TAKE 1 TABLET BY MOUTH TWICE DAILY [facility] ELIQUIS 5 mg tablet 2021-04 2-27 00:00: 00 07-17 00:00 :00 No [id number] 9108 TAKE 1 TABLET BY MOUTH TWICE DAILY [facility] carvediloL 25 mg tablet 2021-04 1-11 00:00: 00 10-15 00:00 :00 No 25mg Take 1 tablet by mouth in the morning and 1 tablet in the evening. Take with meals. [facility] ELIQUIS 5 mg tablet 2021-04 0-10 00:00: 00 04-07 00:00 :00 No [id number] 9108 TAKE 1 TABLET BY MOUTH TWICE DAILY [facility] FUROSEMIDE 80 mg tablet 8-15 00:00: 00 Yes [id number] TAKE 1 TABLET BY MOUTH EVERY MORNING AND EVERY EVENING [facility] ELIQUIS 5 mg tablet 8-08 00:00: 00 01-19 00:00 :00 No [id number] 9108 TAKE 1 TABLET BY MOUTH TWICE DAILY [facility] ELIQUIS 5 mg tablet 4-11 00:00: 00 Yes [id number] 9108 TAKE 1 TABLET BY MOUTH TWICE DAILY [facility] SPIRONOLACT ONE 25 mg tablet 3-09 00:00: 00 Yes [id number] TAKE 1 TABLET BY MOUTH EVERY DAY [facility] FENTanyl PF (SUBLIMAZE (PF)) injection 50 mcg 06-12 19:15: 00 06-12 18:36 :00 No 50ug 50 mcg, Slow IV Push, ONCE, 1 dose, On Verena 06/12/21 at 1315, STAT [facility] NaCl 0.9% (NS) bolus infusion 1,000 mL 06-12 19:00: 00 06-12 19:35 :00 No 1000mL at 999 mL/hr, 1,000 mL, IV Piggyback, ONCE, 1 dose, On Verena 06/12/21 at 1300, STAT [facility] ondansetron (ZOFRAN (PF)) injection 4 mg 06-12 18:00: 00 06-12 18:36 :00 No 4mg 4 mg, Slow IV Push, ONCE, 1 dose, On Verena 06/12/21 at 1200, Routine [facility] ondansetron 4 mg disintegrat ing tablet 06-12 00:00: 00 08-18 00:00 :00 No [id number] 4mg Take 1 tablet by mouth every 8 (eight) hours as needed for Nausea and Vomiting (N/V). [facility] HYDROcodone -acetaminop hen (NORCO) 10-325 mg tablet 06-12 00:00: 00 06-20 05:59 :00 No [id number] .5{tbl} Take 0.5-1 tablets by mouth every 6 (six) hours as needed for Pain (scale 7-10) for up to 7 days. Indication s: acute pain [facility] tamsulosin (FLOMAX) capsule 0.4 mg 06-07 15:00: 00 Yes .4mg 0.4 mg, Oral, DAILY, First dose on 06/07/21 at 0900, Until Discontinu ed, Routine [facility] NaCl 0.9% (NS) bolus infusion 1,000 mL 06-06 19:15: 00 06-06 19:20 :00 No 1000mL at 999 mL/hr, 1,000 mL, IV Infusion, ONCE, 1 dose, On Wed06/06/21 at 1315, STAT [facility] acetaminoph en-codeine 300-30 mg tablet 06-06 00:00: 00 08-23 00:00 :00 No [id number] 1{tbl} Take 1 tablet by mouth every 4 (four) hours as needed for Pain (scale 4-6). Indication s: acute pain [facility] tamsulosin 0.4 mg 24 hr capsule 2022-0 2-25 00:00: 00 08-18 00:00 :00 No [id number] .4mg Take 1 capsule by mouth at bedtime. [facility] FUROSEMIDE 80 mg tablet 2-03 00:00: 00 11-24 00:00 :00 No [id number] TAKE 1 TABLET BY MOUTH EVERY MORNING AND EVERY EVENING [facility] ELIQUIS 5 mg tablet 04-30 00:00: 00 07-21 00:00 :00 No [id number] 9108 TAKE 1 TABLET BY MOUTH TWICE DAILY [facility] CARVEDILOL 25 mg tablet 04-17 00:00: 00 02-20 00:00 :00 No TAKE 1 TABLET BY MOUTH TWICE DAILY WITH MEALS [facility] ELIQUIS 5 mg tablet 2020-04 00:00: 00 04-30 00:00 :00 No [id number] 9108 TAKE 1 TABLET BY MOUTH TWICE DAILY [facility] FUROSEMIDE 80 mg tablet 2020-04 00:00: 00 05-15 00:00 :00 No [id number] TAKE 1 TABLET BY MOUTH EVERY MORNING AND EVERY EVENING [facility] CARVEDILOL 25 mg tablet 30 00:00: 00 04-17 00:00 :00 No TAKE 1 TABLET BY MOUTH TWICE DAILY WITH MEALS [facility] traMADoL 50 mg tablet 9- 00:00: 00 08-18 00:00 :00 No [id number] 50mg Take 1 tablet by mouth every 6 (six) hours as needed for Pain (scale 4-6). Indication s: chronic pain [facility] ELIQUIS 5 mg tablet - 00:00: 00 03-17 00:00 :00 No [id number] 9108 TAKE 1 TABLET BY MOUTH TWICE DAILY [facility] spironolact one 25 mg tablet 12-18 00:00: 00 03-19 05:59 :00 No [id number] 25mg Take 1 tablet by mouth daily for 90 days. [facility] silver sulfADIAZIN E 1 % cream 11-20 00:00: 00 08-18 00:00 :00 No [id number] Apply to area(s) daily. [facility] nystatin 100,000 unit/gram powder 11-19 00:00: 00 08-18 00:00 :00 No [id number] Apply to area(s) 2 (two) times daily. [facility] FUROSEMIDE 80 mg tablet 11-18 00:00: 00 02-17 00:00 :00 No [id number] TAKE 1 TABLET BY MOUTH EVERY MORNING AND EVERY EVENING [facility] Vital Signs Vital Name Observation Time Observation Value Comments S ource Systolic blood pressure 2024-05-31 19:47:00 159 mm[Hg] [facility] Diastolic blood pressure 2024-05-31 19:47:00 101 mm[Hg] [facility] Heart rate 2024-05-31 19:47:00 73 /min [facility] Body weight 2024-05-31 19:47:00 226.345 kg [facility] BMI 2024-05-31 19:47:00 60.74 kg/m2 [facility] Systolic blood pressure 2024-03-13 21:12:00 159 mm[Hg] [facility] Diastolic blood pressure 2024-03-13 21:12:00 83 mm[Hg] [facility] Heart rate 2024-03-13 21:12:00 94 /min [facility] Body temperature 2024-03-13 21:12:00 36.39 [facility] Body weight 2024-03-13 21:12:00 221.809 kg [facility] BMI 2024-03-13 21:12:00 59.52 kg/m2 [facility] Systolic blood pressure 2024-02-24 21:00:00 139 mm[Hg] [facility] Diastolic blood pressure 2024-02-24 21:00:00 90 mm[Hg] [facility] Heart rate 2024-02-24 21:00:00 94 /min [facility] Body temperature 2024-02-24 21:00:00 36.33 [facility] Body weight 2024-02-24 21:00:00 219.541 kg [facility] BMI 2024-02-24 21:00:00 58.91 kg/m2 [facility] Oxygen saturation in Arterial blood by Pulse oximetry 2024-02-24 21:00:00 93 /min [facility] Systolic blood pressure 2024-02-19 17:10:00 168 mm[Hg] [facility] Diastolic blood pressure 2024-02-19 17:10:00 87 mm[Hg] [facility] Heart rate 2024-02-19 17:10:00 63 /min [facility] Body temperature 2024-02-19 17:10:00 36.11 [facility] Respiratory rate 2024-02-19 17:10:00 20 /min [facility] Oxygen saturation in Arterial blood by Pulse oximetry 2024-02-19 17:10:00 92 /min [facility] Body weight 2024-02-18 00:24:00 224.512 kg [facility] BMI 2024-02-18 00:24:00 60.25 kg/m2 [facility] Body height 2024-02-17 19:24:00 193 cm [facility] Systolic blood pressure 2023-08-24 20:12:00 142 mm[Hg] [facility] Diastolic blood pressure 2023-08-24 20:12:00 100 mm[Hg] [facility] Heart rate 2023-08-24 20:11:00 74 /min [facility] Body temperature 2023-08-24 20:11:00 36.11 Barb [facility] Body height 2023-08-24 20:11:00 193 cm [facility] Body weight 2023-08-24 20:11:00 225.438 kg [facility] BMI 2023-08-24 20:11:00 60.50 kg/m2 [facility] Oxygen saturation in Arterial blood by Pulse oximetry 2023-08-24 20:11:00 93 /min [facility] Systolic blood pressure 2023-05-18 22:02:00 144 mm[Hg] [facility] Diastolic blood pressure 2023-05-18 22:02:00 77 mm[Hg] [facility] Heart rate 2023-05-18 22:01:00 90 /min [facility] Body temperature 2023-05-18 22:01:00 37 Babr [facility] Body height 2023-05-18 22:01:00 193 cm [facility] Body weight 2023-05-18 22:01:00 223.623 kg [facility] BMI 2023-05-18 22:01:00 60.01 kg/m2 [facility] Oxygen saturation in Arterial blood by Pulse oximetry 2023-05-18 22:01:00 91 /min [facility] Systolic blood pressure 2023-01-04 02:07:00 164 mm[Hg] [facility] Diastolic blood pressure 2023-01-04 02:07:00 100 mm[Hg] [facility] Heart rate 2023-01-04 02:07:00 59 /min [facility] Body temperature 2023-01-04 02:07:00 36.61 Barb [facility] Respiratory rate 2023-01-04 02:07:00 16 /min [facility] Body height 2023-01-04 02:07:00 193 cm [facility] Body weight 2023-01-04 02:07:00 213.191 kg [facility] BMI 2023-01-04 02:07:00 57.21 kg/m2 [facility] Oxygen saturation in Arterial blood by Pulse oximetry 2023-01-04 02:07:00 98 /min [facility] Systolic blood pressure 2022-08-18 14:45:00 100 mm[Hg] [facility] Diastolic blood pressure 2022-08-18 14:45:00 69 mm[Hg] [facility] Heart rate 2022-08-18 14:44:00 64 /min [facility] Body temperature 2022-08-18 14:44:00 35.5 Barb [facility] Body height 2022-08-18 14:44:00 193 cm [facility] Body weight 2022-08-18 14:44:00 213.191 kg [facility] BMI 2022-08-18 14:44:00 57.21 kg/m2 [facility] Systolic blood pressure 2022-08-04 15:38:00 118 mm[Hg] [facility] Diastolic blood pressure 2022-08-04 15:38:00 73 mm[Hg] [facility] Heart rate 2022-08-04 15:38:00 67 /min [facility] Body temperature 2022-08-04 15:38:00 36.67 Barb [facility] Body height 2022-08-04 15:38:00 193 cm [facility] Body weight 2022-08-04 15:38:00 213.191 kg [facility] BMI 2022-08-04 15:38:00 57.21 kg/m2 [facility] Oxygen saturation in Arterial blood by Pulse oximetry 2022-08-04 15:38:00 93 /min [facility] Systolic blood pressure 2021-06-12 19:40:00 138 mm[Hg] [facility] Diastolic blood pressure 2021-06-12 19:40:00 85 mm[Hg] [facility] Heart rate 2021-06-12 19:40:00 61 /min [facility] Respiratory rate 2021-06-12 19:40:00 14 /min [facility] Oxygen saturation in Arterial blood by Pulse oximetry 2021-06-12 19:40:00 94 /min [facility] Body temperature 2021-06-12 17:57:00 36.5 Barb [facility] Body weight 2021-06-12 17:57:00 192.779 kg [facility] BMI 2021-06-12 17:57:00 51.73 kg/m2 [facility] Systolic blood pressure 2021-06-06 15:56:00 151 mm[Hg] [facility] Diastolic blood pressure 2021-06-06 15:56:00 77 mm[Hg] [facility] Heart rate 2021-06-06 15:56:00 73 /min [facility] Body temperature 2021-06-06 15:56:00 37.17 Barb [facility] Respiratory rate 2021-06-06 15:56:00 18 /min [facility] Body weight 2021-06-06 15:56:00 192.779 kg [facility] BMI 2021-06-06 15:56:00 51.73 kg/m2 [facility] Oxygen saturation in Arterial blood by Pulse oximetry 2021-06-06 15:56:00 99 /min [facility] Systolic blood pressure 2021-01-31 15:07:00 131 mm[Hg] [facility] Diastolic blood pressure 2021-01-31 15:07:00 77 mm[Hg] [facility] Heart rate 2021-01-31 15:07:00 68 [facility] Body height 2021-01-31 15:07:00 193 cm [facility] Body weight 2021-01-31 15:07:00 192.779 kg [facility] BMI 2021-01-31 15:07:00 51.73 kg/m2 [facility] Procedures Procedure Date / Time Performed Performing Clinicia n Source MAGNESIUM 2024-02-19 09:41:00 Sriram Hughes [facility] BASIC METABOLIC PANEL (NA, K, CL, CO2, GLUCOSE, BUN, CREATININE, CA) 2024-02-19 09:41:00 Sriram Hughes [facility] CBC WITH DIFF 2024-02-19 09:41:00 Sriram Hughes [facility] N-TERMINAL PRO-BNP 2024-02-19 09:41:00 Sriram Hughes [facility] VANCOMYCIN RANDOM LEVEL 2024-02-18 17:16:00 Belkis Mckeon [facility] DUPLEX VENOUS LEG LEFT - BY VASCULAR LAB 2024-02-18 16:39:38 [facility] (45181) (ALB,T.PRO,BILI T,BU/BC,ALT,AST,ALK PHOS) 2024-02-18 10:36:00 Saul [facility] BASIC METABOLIC PANEL (NA, K, CL, CO2, GLUCOSE, BUN, CREATININE, CA) 2024-02-18 10:36:00 [facility] 2024-02-18 10:36:00 [facility] COMP. METABOLIC PANEL ([id number]) 2024-02-17 20:07:00 David Bermudez [facility] CBC WITH DIFF 2024-02-17 20:07:00 [facility] SLEEP STUDY DATA REPORT 2023-06-01 06:01:00 Doctor Unassigned, [place] [facility] SLEEP LAB RESULTS 2023-06-01 06:01:00 Jaylene Segura [facility] ASSIGNMENT OF BENEFITS 2023-05-18 21:41:40 Docto r Unassigned, [place] [facility] NOTICE OF PRIVACY PRACTICES 2023-01-04 02:02:33 Doctor Unassigned, [place] [facility] CONSENT/REFUSAL FOR DIAGNOSIS AND TREATMENT 2023-01-04 02:01:26 Doctor Unassigned, [place] [facility] CT ABDOMEN PELVIS WO CONTRAST 2021-06-12 19:35:00 Dusty Correia [facility] COMP. METABOLIC PANEL ([id number]) 2021-06-12 18:37:00 Dusty Correia [facility] CBC WITH DIFF 2021-06-12 18:37:00 Dusty Correia [facility] URINALYSIS 2021-06-12 18:37:00 Dusty Correia [facility] CONSENT/REFUSAL FOR DIAGNOSIS AND TREATMENT 2021-06-12 17:56:19 Doctor Unassigned, [place] [facility] COVID-19 (ID NOW RAPID TESTING) 2021-06-06 18:19:00 Kaelyn Dudley [facility] CT ABDOMEN PELVIS WO CONTRAST 2021-06-06 17:20:00 Kaelyn Dudley [facility] LIPASE 2021-06-06 16:12:00 Dusty Correia [facility] COMP. METABOLIC PANEL ([id number]) 2021-06-06 16:12:00 Dusty Correia [facility] CBC WITH DIFF 2021-06-06 16:12:00 [facility] URINALYSIS 2021-06-06 16:12[facility]00 [facility] CONSENT/REFUSAL FOR DIAGNOSIS AND TREATMENT 2021-06-06 15:53:56 Doctor Unassigned, [place] [facility] Encounters Start Date/Time End Date/Time Encounter Type Admission Type Attending [facility] Care Facility Care Department Encounter ID Source 2021-02-10 12:30:55 Emergency [facility] [id number] [facility] 2021-02-09 22:32:35 Emergency [facility] [id number] [facility] 2021-02-07 08:30:31 Emergency [facility] [id number] [facility] 2021-02-07 02:59:44 Emergency [facility] [id number] [facility] 2022-06-03 00:00:00 2024-08-03 21:28:34 [facility] 1..840.114 350.1.13.10 4.2.7.2.686 [id number] [facility] 2024-05-01 00:00:00 2024-06-03 18:19:29 Patient Secure Msg Doctor Unassigned, [place] Doctor Unassigned, [place] [facility]?VELMAAjay [facility] 1..840.114 350.1.13.10 4.2.7.2.686 [id number] [facility] 2024-05-31 14:15:00 2024-05-31 14:30:00 Office Visit Jaylene Segura [facility] 1.840.114 350.1.13.10 4.2.7.2.686 [id number] [facility] 2024-05-31 14:15:00 2024-05-31 14:15:00 Outpatient R JAYLENE SEGURA [facility] [id number] [facility] 2024-05-16 15:15:00 2024-05-16 15:15:00 Outpatient R JAYLENE SEGURA [facility] [id number] [facility] 2024-05-10 13:30:00 2024-05-10 13:30:00 Outpatient R JAYLENE SEGURA [facility] [id number] [facility] 2024-05-02 15:30:00 2024-05-02 15:30:00 Outpatient R JAYLENE SEGURA [facility] [id number] [facility] 2024-04-24 13:45:00 2024-04-24 13:45:00 Outpatient R JAYLENE SEGURA [facility] [id number] [facility] 2024-02-24 00:00:00 2024-04-01 18:20:42 Patient Secure Msg Doctor Unassigned, [place] Doctor Unassigned, [place] [facility] 1.840.114 350.1.13.10 4.2.7.2.686 [id number] [facility] 2024-03-15 00:00:00 2024-03-15 16:50:17 Telephone Jaylene Segura [facility] 1..840.114 350.1.13.10 4.2.7.2.686 [id number] [facility] 2024-03-13 15:15:00 2024-03-13 15:30:00 [facility] 1.2.840.114 350.1.13.10 4.2.7.2.686 [id number] [facility] 2024-03-13 15:15:00 2024-03-13 15:15:00 Outpatient JAYLENE CHARLES [facility] [id number] [facility] 2024-03-06 00:00:00 2024-03-06 11:49:35 Telephone Jaylene Segura [facility] LONG?[facility] MEDICAL OFFICE BUILDING 1.2.840.114 350.1.13.10 4.2.7.2.686 [id number] [facility] 2024-03-03 00:00:00 2024-03-06 09:30:54 Telephone Jaylene Segura [facility] LONG?[facility] MEDICAL OFFICE BUILDING 1.2.840.114 350.1.13.10 4.2.7.2.686 [id number] [facility] 2024-03-06 00:00:00 2024-03-06 08:53:05 Telephone Jaylene Segura [facility] LONG?[facility] MEDICAL OFFICE BUILDING 1.2.840.114 350.1.13.10 4.2.7.2.686 [id number] [facility] 2024-02-24 14:30:00 2024-02-24 15:00:00 Office Visit Jaylene Segura [facility] LONG?[facility] MEDICAL OFFICE BUILDING 1.2.840.114 350.1.13.10 4.2.7.2.686 [id number] [facility] 2024-02-24 14:30:00 2024-02-24 14:30:00 Outpatient R JAYLENE SEGURA [facility] [id number] [facility] 2024-02-21 00:00:00 2024-02-21 14:37:55 Transition of Care Iliana Dawn Kristi L SHEARN MICAH MÁRQUEZ 1..840.114 350.1.13.10 4.2.7.2.686 [id number] [facility] 2024-02-17 13:36:00 2024-02-19 14:27:00 Inpatient X [facility] [id number] [facility] 2024-02-17 13:36:00 2024-02-19 14:27:00 Hospital Encounter LaraDavid Jelani [facility] 1..840.114 350.1.13.10 4.2.7.2.686 [id number] [facility] 2024-01-10 00:00:00 2024-01-11 11:43:24 Refjavier Segura [facility] 1..840.114 350.1.13.10 4.2.7.2.686 [id number] [id number] [facility] 2023-12-06 11:30:00 2023-12-06 11:30:00 Outpatient JAYLENE CHARLES [facility] [id number] [facility] 2023-11-30 15:30:00 2023-11-30 15:30:00 Outpatient JAYLENE CHARLES [facility] [id number] [facility] 2023-11-26 00:00:00 2023-11-29 13:10:27 Ramone Segura [facility] 1..840.114 350.1.13.10 4.2.7.2.686 [id number] [facility] 2023-09-07 00:00:00 2023-09-08 07:44:05 Refill Jaylene Segura [facility] LONG?[facility] 1.2.840.114 350.1.13.10 4.2.7.2.686 [id number] [facility] 2023-09-03 00:00:00 2023-09-06 08:34:21 Telephone [facility]ura [facility] 1.2.840.114 350.1.13.10 4.2.7.2.686 [id number] [facility] 2023-08-24 00:00:00 2023-08-24 16:59:05 Telephone Jaylene Seugra [facility] LONG?[facility] 1.2.840.114 350.1.13.10 4.2.7.2.686 [id number] 044 [id number] [facility] 2023-08-24 14:30:00 2023-08-24 15:00:00 Office Visit Jaylene Segura [facility] LONG?[facility] 1.2840.114 350.1.13.10 4.2.7.2.686 [id number] [facility] 2023-08-24 14:30:00 2023-08-24 14:30:00 Outpatient JAYLENE CHARLES [facility] [id number] [facility] 2023-08-10 10:30:00 2023-08-10 10:30:00 Outpatient JAYLENE CHARLES [facility] [id number] [facility] 2023-08-04 00:00:00 2023-08-04 00:00:00 Refill Jaylene Segura [facility] LONG?[facility] 1.2.840.114 350.1.13.10 4.2.7.2.686 [id number] [facility] 2023-07-19 20:00:00 2023-07-19 20:00:00 Outpatient R [facility] [id number] [facility] 2023-07-13 14:00:00 2023-07-13 14:00:00 Outpatient R JAYLENE SEGURA [facility] [id number] [facility] 2023-07-12 00:00:00 2023-07-12 00:00:00 Telephone Jaylene Segura [facility] 1..840.114 350.1.13.10 4.2.7.2.686 [id number] [facility] 2023-06-14 00:00:00 2023-06-14 00:00:00 Telephone Jaylene Segura [facility] MED[facility] OFFICE BUILD[facility] 1..840.114 350.1.13.10 4.2.7.2.686 [id number] [facility] 2023-06-03 10:00:00 2023-06-03 10:00:00 Outpatient R [facility] [id number] [facility] 2023-06-02 00:00:00 2023-06-02 00:00:00 Refill Colton [facility] MED[facility] OFFICE BUILD[facility] 1..840.114 350.1.13.10 4.2.7.2.686 [id number] [facility] 2023-06-01 14:30:00 2023-06-01 14:45:00 Client Onboarding Analyst Visit [facility] Sleep Lab Zoraida Nixon [facility] 1..840.114 350.1.13.10 4.2.7.2.686 [id number] [facility] 2023-06-01 14:30:00 2023-06-01 14:30:00 Outpatient R ZORAIDA NIXON, ZORAIDA [facility] [id number] [facility] 2023-06-01 00:00:00 2023-06-01 00:00:00 Orders Only Doctor Unassigned, [place] [facility] 1.2840.114 350.1.13.10 4.2.7.2.686 [id number] [facility] 2023-05-18 15:45:00 2023-05-18 16:50:47 Outpatient R COLTON [facility] [id number] [facility] 2023-05-18 15:45:00 2023-05-18 16:50:47 Office Visit Colton [facility] MEDICAL OFFICE BUILDING 1.840.114 350.1.13.10 4.2.7.2.686 [id number] [facility] 2023-05-18 00:00:00 2023-05-18 00:00:00 Orders Only Doctor Unassigned, [place] [facility] 1.114 350.1.13.10 4.2.7.2.686 [id number] [facility] 2023-05-18 00:00:00 2023-05-18 00:00:00 Letter (Out) Colton [facility] MEDICAL OFFICE BUILDING 1.284.114 350.1.13.10 4.2.7.2.686 [id number] [facility] 2023-04-24 00:00:00 2023-04-24 00:00:00 Refill Colton [facility] MEDICAL OFFICE BUILDING 1.2840.114 350.1.13.10 4.2.7.2.686 [id number] [facility] 2023-04-13 00:00:00 2023-04-13 00:00:00 RefJaylene Nascimento [facility] LONG?[facility] 1.2.840.114 350.1.13.10 4.2.7.2.686 [id number] [facility] 2023-03-16 00:00:00 2023-03-16 00:00:00 Refill Jaylene Segura [facility] LONG?[facility] MEDICAL OFFICE BUILDING 1.2.840.114 350.1.13.10 4.2.7.2.686 [id number] [facility] 2023-02-03 00:00:00 2023-02-03 00:00:00 Refill Jaylene Segura [facility] LONG?[facility] MEDICAL OFFICE BUILDING 1..840.114 350.1.13.10 4.2.7.2.686 [id number] [facility] 2023-01-03 21:10:00 2023-01-03 22:04:00 Emergency X SINGER DUSTY [facility] [id number] [facility] 2023-01-03 21:10:00 2023-01-03 22:04:00 Emergency Dusty Correia [facility] 1..840.114 350.1.13.10 4.2.7.2.686 [id number] [facility] 2022-12-22 00:00:00 2022-12-22 00:00:00 Jaylene Seay [facility] 1.2.840.114 350.1.13.10 4.2.7.2.686 [id number] [facility] 2022-11-17 00:00:00 2022-11-17 00:00:00 RefJaylene Nascimento [facility] LONG?[facility] 1.840.114 350.1.13.10 4.2.7.2.686 [id number] [facility] 2022-10-15 00:00:00 2022-10-15 00:00:00 Refill Jaylene Segura [facility] 1.84.114 350.1.13.10 4.2.7.2.686 [id number] [facility] 2022-10-14 00:00:00 2022-10-14 00:00:00 Telephone Jaylene Segura [facility] LONG?[facility] 1.84.114 350.1.13.10 4.2.7.2.686 [id number] [facility] 2022-10-07 13:30:00 2022-10-07 13:30:00 Outpatient R ZORAIDA NIXON STRAOREdil [facility] [id number] [facility] 2022-09-17 00:00:00 2022-09-17 00:00:00 Refill Jaylene Segura [facility] LONG?[facility] 1.840.114 350.1.13.10 4.2.7.2.686 [id number] [facility] 2022-09-05 00:00:00 2022-09-05 00:00:00 Refill Viviana Renee [facility] LONG?[facility] MEDICAL OFFICE BUILDING 1.840.114 350.1.13.10 4.2.7.2.686 [id number] [facility] 2022-08-18 09:45:00 2022-08-18 10:00:00 Office Visit Jaylene Segura [facility] LONG?[facility] MEDICAL OFFICE BUILDING 1.84.114 350.1.13.10 4.2.7.2.686 [id number] [facility] 2022-08-18 09:45:00 2022-08-18 09:45:00 Outpatient R JAYLENE SEGURA [facility] [id number] [facility] 2022-08-18 00:00:00 2022-08-18 00:00:00 Letter (Out) Jaylene Segura [facility] LONG?[facility] MEDICAL OFFICE BUILDING 1..840.114 350.1.13.10 4.2.7.2.686 [id number] [facility] 2022-08-16 00:00:00 2022-08-16 00:00:00 Refill Jaylene Segura [facility] BUILDING 1..840.114 350.1.13.10 4.2.7.2.686 [id number] [facility] 2022-08-04 10:30:00 2022-08-04 11:06:26 Outpatient R VIVIANARENEE [facility] [id number] [facility] 2022-08-04 10:30:00 2022-08-04 11:06:26 Office Visit Viviana Renee [facility] MED[facility] 1..840.114 350.1.13.10 4.2.7.2.686 [id number] [facility] 2022-08-04 00:00:00 2022-08-04 00:00:00 Letter (Out) VivianaRenee [facility] LONG?[facility] BUILD[facility] 1..840.114 350.1.13.10 4.2.7.2.686 [id number] [facility] 2022-07-16 00:00:00 2022-07-16 00:00:00 Refill Jaylene Segura [facility] PROFESSIO NAL BUILDING 1.2.840.114 350.1.13.10 4.2.7.2.686 [id number] [facility] 2022-06-03 00:00:00 2022-06-03 00:00:00 [facility] 1.2.840.114 350.1.13.10 4.2.7.2.686 [id number] [facility] 2022-04-04 00:00:00 2022-04-04 00:00:00 Refill Jaylene Segura [facility] NAL BUILDING 1.2.840.114 350.1.13.10 4.2.7.2.686 [id number] [facility] 2022-02-20 00:00:00 2022-02-20 00:00:00 Refill SreeosmanJaylene [facility] BUILDING 1.2.840.114 350.1.13.10 4.2.7.2.686 [id number] [facility] 2022-02-20 00:00:00 2022-02-20 00:00:00 Jaylene Dixon [facility] BU[facility] 1.2.840.114 350.1.13.10 4.2.7.2.686 [id number] [facility] 2022-01-19 00:00:00 2022-01-19 00:00:00 Refill Jaylene Segura [facility] BUILDING 1.2.840.114 350.1.13.10 4.2.7.2.686 [id number] [id number] [facility] 2021-11-22 00:00:00 2021-11-22 00:00:00 Refill Veselka, [facility] BUILDING 1.2.840.114 350.1.13.10 4.2.7.2.686 [id number] [id number] [facility] 2021-11-15 00:00:00 2021-11-15 00:00:00 Ramone Segura [facility] BUILDING 1.2.840.114 350.1.13.10 4.2.7.2.686 [id number] [facility] 2021-07-19 00:00:00 2021-07-19 00:00:00 Ramone Segura [facility] OFFICE BUILDING ONE 1.2.840.114 350.1.13.10 4.2.7.2.686 [id number] [facility] 2021-06-17 00:00:00 2021-06-17 00:00:00 Diane Rankin [facility] BUILDING 1.2.840.114 350.1.13.10 4.2.7.2.686 [id number] [facility] 2021-06-12 12:00:00 2021-06-12 15:08:00 Emergency X DUSTY CORREIA [facility] ERT [id number] [facility] 2021-06-12 12:00:00 2021-06-12 15:08:00 Emergency Dusty Correia [facility] 1.2.840.114 350.1.13.10 4.2.7.2.686 [id number] [facility] 2021-06-06 10:00:00 2021-06-06 13:21:00 Emergency X Kaelyn DUDLEY [facility] ERT [id number] [facility] 2021-06-06 10:00:00 2021-06-06 13:21:00 Emergency Luis Enrique, K Casandra [facility] 1.2.840.114 350.1.13.10 4.2.7.2.686 [id number] [facility] 2021-05-15 00:00:00 2021-05-15 00:00:00 Ramone Segura [facility] BUILDING 1.2.840.114 350.1.13.10 4.2.7.2.686 [id number] [facility] 2021-04-26 00:00:00 2021-04-26 00:00:00 Ramone Segura [facility] OFFICE BUILDING ONE 1.2.840.114 350.1.13.10 4.2.7.2.686 [id number] [facility] 2021-04-17 00:00:00 2021-04-17 00:00:00 Ramone Segura [facility] OFFICE BUILDING ONE 1.2.840.114 350.1.13.10 4.2.7.2.686 [id number] [facility] 2021-03-16 00:00:00 2021-03-16 00:00:00 Ramone Segura [facility] OFFICE BUILDING ONE 1.2.840.114 350.1.13.10 4.2.7.2.686 [id number] [facility] 2021-02-15 00:00:00 2021-02-15 00:00:00 Ramone Segura [facility] BUILDING 1.2.840.114 350.1.13.10 4.2.7.2.686 [id number] [facility] 2021-01-31 11:25:41 2021-01-31 12:05:41 Ancillary Visit Marjorie RaymondJaylene [facility] Building 1.2.84.114 350.1.13.10 4.2.7.2.686 [id number] [facility] 2021-01-31 09:59:59 2021-01-31 10:39:35 Office Visit Sreeosman Jaylene [facility] Building 1.284.114 350.1.13.10 4.2.7.2.686 [id number] [facility] 2021-01-31 10:00:00 2021-01-31 10:00:00 Outpatient R SREEOSMAN JAYLENE [facility] [id number] [facility] 2021-01-23 13:58:30 2021-01-23 14:58:30 Ancillary Visit Marjorie Raymond Craig L [facility] 1.2.84.114 350.1.13.10 4.2.7.2.686 [id number] [facility] 2021-01-16 14:28:43 2021-01-16 15:28:43 Ancillary Visit Marjorie Raymond Craig L [facility] Building 1.2.84.114 350.1.13.10 4.2.7.2.686 [id number] [facility] 2021-01-15 15:00:00 2021-01-15 15:00:00 Outpatient R [facility] [id number] [facility] 2021-01-13 15:08:04 2021-01-14 08:06:50 Ancillary Visit Rola Kitchen Craig L [facility] Building 1.2.840.114 350.1.13.10 4.2.7.2.686 [id number] [facility] 2021-01-09 15:22:35 2021-01-09 16:22:35 Ancillary Visit Marjorie Raymond Craig L [facility] Building 1.840.114 350.1.13.10 4.2.7.2.686 [id number] [facility] 2021-01-09 00:00:00 2021-01-09 00:00:[address] [facility] Office Building One 1.84.114 350.1.13.10 4.2.7.2.686 [id number] [facility] 2021-01-06 13:17:44 2021-01-06 14:17:44 Ancillary Visit Rola Kitchen Craig L [facility] Building 1.840.114 350.1.13.10 4.2.7.2.686 [id number] [facility] 2021-01-06 13:00:00 2021-01-06 13:00:00 Outpatient R CESAR LUO [facility] [id number] [facility] 2021-01-01 16:43:06 2021-01-01 16:58:06 Client Onboarding Analyst Visit Lab, [facility] [facility] Segura [facility] Medical Office Building 1.840.114 350.1.13.10 4.2.7.2.686 [id number] [facility] 2021-01-01 15:52:15 2021-01-01 16:07:15 Office Visit Jaylene Segura [facility] Office Building 1..840.114 350.1.13.10 4.2.7.2.686 [id number] [facility] 2021-01-01 16:00:00 2021-01-01 16:00:00 Outpatient JAYLENE CHARLES [facility] [id number] [facility] 2020-12-24 15:00:00 2020-12-24 15:00:00 Outpatient JAYLENE CHARLES [facility] [id number] [facility] 2020-12-23 00:00:00 2020-12-23 00:00:00 Jaylene Seay [facility] Office Building One 1.2.840.114 350.1.13.10 4.2.7.2.686 [id number] [facility] 2020-12-18 08:30:00 2020-12-18 23:59:00 Hospital Encounter Diane Felton [facility] Building 1..840.114 350.1.13.10 4.2.7.2.686 [id number] [facility] 2020-12-18 14:44:24 2020-12-18 15:38:44 Office Visit Diane Felton [facility] Building 1.2.840.114 350.1.13.10 4.2.7.2.686 [id number] [facility] 2020-12-18 14:30:00 2020-12-18 14:30:00 Outpatient DIANE BRANTLEY [facility] [id number] [facility] 2020-12-03 00:00:00 2020-12-03 00:00:00 Orders Only Doctor Unassigned, [place] [facility] 1.2840.114 350.1.13.10 4.2.7.2.686 [id number] [facility] 2020-11-26 14:30:00 2020-11-26 14:30:00 Outpatient JAYLENE CHARLES [facility] [id number] [facility] 2019-11-22 11:15:00 2019-11-22 11:15:00 Outpatient R DWIGHTJESSICA JAYLENE [facility] [id number] [facility] 2019-11-13 20:00:00 2019-11-13 20:00:00 Outpatient R ZORAIDA NIXON STRAOREdil [facility] [id number] [facility] 2019-11-10 14:00:00 2019-11-10 14:00:00 Outpatient R [facility] [id number] [facility] 2019-10-11 00:00:00 2019-10-11 00:00:00 Transition of Care Balta Brown 1.2.840.114 350.1.13.10 4.2.7.2.686 [id number] 2019-10-05 19:53:26 2019-10-10 16:15:00 Hospital Encounter Dusty Correia [facility] 1.2840.114 350.1.13.10 4.2.7.2.686 [id number] 2019-06-16 10:46:28 2019-06-16 12:29:00 Emergency X MANNY MACIAS [facility] ERT [id number] [facility] 2019-06-16 10:46:28 2019-06-16 12:29:00 Emergency Manny Macias [facility] 1.2840.114 350.1.13.10 4.2.7.2.686 [id number] 2019-06-16 00:00:00 2019-06-16 00:00:00 Orders Only Doctor Unassigned, [place] [facility] 1.2840.114 350.1.13.10 4.2.7.2.686 [id number] 2019-03-08 16:34:14 2019-03-16 17:05:00 Inpatient X MARIA SANTIAGO [facility] [id number] [facility] Results Test Description Test Time Test Comments Results Result Co mments Source [facility]. Metabolic Panel (02605)2024-02-17 20:47:41* Test Item Value Reference Range Interpretation Comme nts NA (test code = 2821603463) 137 mmol/L 135-145 K (test code = 6339816848) 3.7 mmol/L 3.5-5.0 CL (test code = 3582930163) 102 mmol/L 98-108 CO2 TOTAL (test code = 0046694319) 27 mmol/L 23-31 AGAP (test code = 5712326354) 8 2-16 BUN (test code = 3488857929) 23 mg/dL 7-23 GLUCOSE (test code = 3097525930) 104 mg/dL 70-110 CREATININE (test code = 2160-0) 1.47 mg/dL 0.60-1.25 H TOTAL BILI (test code = 8904434859) 1.3 mg/dL 0.1-1.1 H CALCIUM (test code = 6964288467) 9.1 mg/dL 8.6-10.6 T PROTEIN (test code = 6596409872) 7.6 g/dL 6.3-8.2 ALBUMIN (test code = 0973965211) 4.3 g/dL 3.5-5.0 ALK PHOS (test code = 7836594868) 67 U/L 34-122 ALTv (test code = 1742-6) 22 U/L 5-50 AST(SGOT) (test code = 2685449506) 21 U/L 13-40 eGFR (test code = 54358-5) 56.7 mL/min/1.73m2 CKD-EPI eGFR (2020). Assuming creatinine has been stable day-to-day for at least three months, the eGFR indicates Category G3a (45 - 59 mL/min/1.73 m2) Lab Interpretation (test code = 14931-5) Abnormal [facility] METABOLIC PANEL (58771)2021-06-12 19:22:30* Test Item Value Reference Range Interpretation Comme nts NA (test code = 9449820067) 137 mmol/L 135-145 K (test code = 7065365579) 3.8 mmol/L 3.5-5.0 CL (test code = 9507803840) 100 mmol/L 98-108 CO2 TOTAL (test code = 3934923664) 27 mmol/L 23-31 AGAP (test code = 7555487865) 2-16 BUN (test code = 4168090871) 32 mg/dL 7-23 H GLUCOSE (test code = 1985749582) 140 mg/dL 70-110 H CREATININE (test code = 2651797554) 1.95 mg/dL 0.60-1.25 H TOTAL BILI (test code = 3588958568) 0.6 mg/dL 0.1-1.1 CALCIUM (test code = 1191513428) 8.9 mg/dL 8.6-10.6 T PROTEIN (test code = 6703922658) 7.3 g/dL 6.3-8.2 ALBUMIN (test code = 0094007534) 4.4 g/dL 3.5-5.0 ALK PHOS (test code = 5399916820) 78 U/L 34-122 ALTv (test code = 1742-6) 18 U/L 5-50 AST(SGOT) (test code = 7224625844) 22 U/L 13-40 eGFR (test code = 1532761427) mL/min/1.73m2 TWAN (test code = TWAN) Association [...] imaging tests). Lab Interpretation (test code = 83679-0) Abnormal [facility] WITH EHWW9124-39-42 18:59:07* Test Item Value Reference Range Interpretation Comme nts WBC (test code = 6690-2) See_Comment H [Automated [employer]] The system which generated this result transmitted reference range: 4.20 - 10.70 10*3/?L. The reference range was not used to interpret this result as normal/abnormal. RBC (test code = 789-8) See_Comment [[employer]] The system which generated this result transmitted [...] 33.3 g/dL 31.2-35.0 RDW-SD (test code = 89704-1) 41.5 fL 38.5-51.6 RDW-CV (test code = 788-0) 11.9 % 12.1-15.4 L PLT (test code = 777-3) See_Comment [[employer]] The system which generated this result transmitted reference range: 150 - 328 10*3/?L. The reference range was not used to interpret this result as normal/abnormal. MPV (test code = 05725-4) 11.0 fL 9.8-13.0 NRBC/100 WBC (test code = 2161378030) See_Comment [Automated me ssage] The system which generated this result transmitted reference range: 0.0 - 10.0 /100 WBCs. The reference range was not used to interpret this result as normal/abnormal. NRBC x10^3 (test code = 0845332227) <0.01 See_Comment [Automated messa ge] The system which generated this result transmitted reference range: 10*3/?L. The reference range was not used to interpret this result as normal/abnormal. GRAN MAT (NEUT) % (test code = 770-8) 71.4 % IMM GRAN % (test code = 8146666081) 0.40 % LYMPH % (test code = 736-9) 17.0 % MONO % (test code = 5905-5) 8.1 % EOS % (test code = 713-8) 2.5 % BASO % (test code = 706-2) 0.6 % GRAN MAT x10^3(ANC) (test code = 2923103377) 7.67 10*3/uL 1.99-6.95 H IMM GRAN x10^3 (test code = 1296903804) 0.04 10*3/uL 0.00-0.06 LYMPH x10^3 (test code = 731-0) 1.82 10*3/uL 1.09-3.23 MONO x10^3 (test code = 742-7) 0.87 10*3/uL 0.36-1.02 EOS x10^3 (test code = 711-2) 0.27 10*3/uL 0.06-0.53 BASO x10^3 (test code = 704-7) 0.06 10*3/uL 0.01-0.09 Lab Interpretation (test code = 55615-6) [facility] Tavda1103-15-61 17:28:57* Test Item Value Reference Range Interpretation Comme nts NA (test code = 4094361609) 139 mmol/L 135-145 K (test code = 3081929693) 4.1 mmol/L 3.5-5.0 CL (test code = 8342729845) 102 mmol/L 98-108 CO2 TOTAL (test code = 1206711510) 24 mmol/L 23-31 AGAP (test code = 2041569481) 2-16 BUN (test code = 5665575888) 27 mg/dL 7-23 H GLUCOSE (test code = 3113686301) 97 mg/dL 70-110 CREATININE (test code = 9953485055) 1.93 mg/dL 0.60-1.25 H TOTAL BILI (test code = 7537734033) 0.5 mg/dL 0.1-1.1 CALCIUM (test code = 6366245646) 9.1 mg/dL 8.6-10.6 T PROTEIN (test code = 9174059164) 7.2 g/dL 6.3-8.2 ALBUMIN (test code = 0804428876) 4.3 g/dL 3.5-5.0 ALK PHOS (test code = 1333743056) 89 U/L 34-122 ALTv (test code = 1742-6) 17 U/L 5-50 AST(SGOT) (test code = 4715038996) 23 U/L 13-40 eGFR (test code = 7974450586) mL/min/1.73m2 TWAN (test code = TWAN) Association [...] imaging tests). Lab Interpretation (test code = 03799-7) [facility]normal [facility] Biwac9885-09-10 17:28:37* Test Item Value Reference Range Interpretation Comme nts LIPASE (test code = 5881954148) 138 U/L 0-220 Lab Interpretation (test cod e = 77353-8) Normal [facility] Pekymnslaroi8253-67-64 16:30:33* Test Item Value Reference Range Interpretation Comme nts WBC (test code = 6690-2) See_Comment [Automated [place] [employer]] The system which generated this result transmitted reference range: 4.20 - 10.70 10*3/?L. The reference range was not used to interpret this result as normal/abnormal. RBC (test code = 789-8) See_Comment [Automated [place] [employer]] The system which generated this result transmitted [...] 34.1 g/dL 31.2-35.0 RDW-SD (test code = 50823-3) 42.7 fL 38.5-51.6 RDW-CV (test code = 788-0) 12.2 % 12.1-15.4 PLT (test code = 777-3) See_Comment [Automated [place] [employer]] The system which generated this result transmitted reference range: 150 - 328 10*3/?L. The reference range was not used to interpret this result as normal/abnormal. MPV (test code = 37650-0) 11.1 fL 9.8-13.0 NRBC/100 WBC (test code = 0008227507) See_Comment [Automated me ssage] The system which generated this result transmitted reference range: 0.0 - 10.0 /100 WBCs. The reference range was not used to interpret this result as normal/abnormal. NRBC x10^3 (test code = 1778860074) <0.01 See_Comment [Automated me ssage] The system which generated this result transmitted reference range: 10*3/?L. The reference range was not used to interpret this result as normal/abnormal. GRAN MAT (NEUT) % (test code = 770-8) 72.1 % IMM GRAN % (test code = 9712779601) 0.50 % LYMPH % (test code = 736-9) 14.7 % MONO % (test code = 5905-5) 8.7 % EOS % (test code = 713-8) 3.4 % BASO % (test code = 706-2) 0.6 % GRAN MAT x10^3(ANC) (test code = 4601050477) 6.40 10*3/uL 1.99-6.95 IMM GRAN x10^3 (test code = 1352227039) 0.04 10*3/uL 0.00-0.06 LYMPH x10^3 (test code = 731-0) 1.30 10*3/uL 1.09-3.23 MONO x10^3 (test code = 742-7) 0.77 10*3/uL 0.36-1.02 EOS x10^3 (test code = 711-2) 0.30 10*3/uL 0.06-0.53 BASO x10^3 (test code = 704-7) 0.05 10*3/uL 0.01-0.09 [facility] Consult Notes Date/Time Note Provider Source 2024-02-18 09:51:06 Associated Order(s): CONSULT PS POLY/SPECIALTY BEDS [facility] NURSE NOTE Consult for: Specialty Bed Request - Bariatric Confirmed by charge nurse via text, bariatric bed ordered for patient. ASSESSMENT: 6'4, 494 lbs, 53 yo male Consult closed/completed. Gail Bryant, MSN, RN, CWOCN, CCRN Wound, Ostomy & Continence Nurse [facility] Health P [phone] [email or web address] ATOR Gail Bryant RN [facility] - Health History and Physical Notes Date/Time Note Provider Source 2024-02-17 20:36:07 [facility] Hospitalist Admission H&P Date of Service: 02/17/2024 [...] when he works. 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 Social Determinants of Health [...] high risk of morbidity and mortality [place] [employer] was verified during stay Belkis Mckeon MD [facility] IM-INTERNAL MEDICINE STAFF [facility] Notes Date/Time Note Provider Source 2024-03-15 16:49:49 Advised patient of recommendations per Colton [facility] 2024-03-15 14:43:48 Please ask patient to make an appointment to discuss. Continue at 50 mg for now [facility] 2024-03-15 12:47:23 Patient stated took increased dose of Losartan 100mg per MD orders during last OV yesterday. He reported feeling weak, dizzy, and shaky as if he were going to pass out. He stated only taking Losartan 50mg this am and feels fine. Please review and advise. He said there is a BP monitor in the home, but no one knows how to work it. He was encouraged to schedule a nurse visit or to bring it with him to his next OV to receive education regarding BP machine. ATOR Sophia Hearn LVN [facility] 2024-03-15 12:21:52 Neha Loyd IV is a 53 year old male Pt calling in stating his new Bp med dosage made him feel like he was about to pass out. Pt believes it is too much.Pt states he has not taken his med today bc he doesn't want to feel like that again. Please assist. [phone] (home) [phone] (work) ATOR Mague Richardson [facility] 2024-03-06 11:48:20 Will fax over work excuse to Chief Jaylene Fajardo @ [phone] [facility] 2024-03-06 10:49:54 Patient is calling to speak with Suki regarding forms to provide fax. Patient declined to provide information Please advise. [facility] Sami Bauer [facility] 2024-03-03 10:52:24 Neha Loyd IV is a 53 year old male Patient is calling requesting a detailed work excuse to provider to his employer regarding his visit on 02.24.24. Patient states the excuse will need to have how long the provider suggests for him to be ut of work to heal, his next follow up appt on 03.13.24 and any restrictions he may have. Patient will also like for it to be uploaded into his [email or web address] and called once letter has been done. Please advise Smith [facility] 2024-02-21 14:37:35 TRANSITIONAL CARE MANAGEMENT ASSESSMENT 02/21/2024 Neha Loyd IV [id number] Neha Loyd IV is a 53 year old /White male was admitted on 02/17/24 to [facility], [facility] MED SURG. He was discharged on 02/19/24 with discharge disposition of HR- Routine Discharge. Admitting Physician: Sriram Hughes Discharge Diagnosis: LLE Cellulitis DVT HTN CKD III Obesity, Class III No linked episodes TCM Vsb-znjt-gs-face outreach documentation: Discharge Assessment Chart Assessed: 02/21/24 [...] this time?: No Future Appointments: Dawn RN [facility] 2024-02-19 11:48:32 Problem: Discharge Planning Goal: Adequate [...] airway Outcome: Adequate for discharge Santiago RN [facility] 2024-02-19 03:45:32 Problem: Discharge Planning Goal: Adequate [...] airway Outcome: Progressing as expected Oneal RN [facility] 2024-02-18 17:29:31 Problem: Discharge Planning Goal: Adequate [...] Goal: Patent airway Outcome: Progressing as expected ATOR [facility] 2024-02-18 13:17:03 General Vancomycin Note [facility] Clinical Pharmacist Consult Consulting Service: Vancomycin (Pharmacy to Dose) Pharmacy Vancomycin Therapeutic Monitoring Note Patient Name MRShey Sex Unit Neha Loyd IV [id number] 1970 male - Indication for vancomycin and goal Age Total [...] or concerns. Raymond Alaniz RPH, PharmD [facility] Department of Pharmacy - [facility] Phone: ADC: [phone] ATOR Raymond Alaniz [facility] 2024-02-18 00:14:36 Problem: Discharge Planning Goal: Adequate for discharge 02/18/202413 by Sakina Pearson RN Outcome: Progressing as expected 02/18/202413 by Sakian Pearson RN Outcome: Progressing as expected Goal: [...] Sakina Pearson RN Outcome: Progressing as expected ATOR Sakina Pearson RN [facility] 2024-02-17 20:49:31 Images from the original note were not included. General Vancomycin Note [facility] Clinical Pharmacist Consult Consulting Service: Vancomycin (Pharmacy to Dose) Pharmacy Vancomycin Therapeutic Monitoring Note Patient Name SERGO Sex Unit Neha Loyd IV [id number] 1970 male 2225/2225- Indication for vancomycin and goal Age Total [...] or concerns. Raymond Alaniz RPH, PharmD [facility] Department of Pharmacy - [facility] Phone: ADC: [phone] [facility] 2024-02-17 18:40:25 Problem: Discharge Planning Goal: Adequate [...] venous thromboembolism (Risk) Outcome: Progressing as expected [facility] 2024-02-17 17:36:23 Nurse Report Report given to MAHI Hope. Chief complaint, assessment findings, infusion verify and orders reviewed. Plan of care discussed. Patient/family members verbalized understanding. Liset Broussard RN [facility] 2024-02-17 17:36:00 Patient admitted to 2226 for diagnosis of pain of left lower extremity. Patient agrees to admission, discussed plan of care with patient and family. Patient is awake, alert, oriented, resp reg unlabored, color appropriate for race, PIV intact. No adverse reaction to medications administered while in ED. Belongings with patient to unit. [facility] 2024-02-17 15:10:00 Report received from MAHI Martinez / MAHI Aguila. ATOR [facility] 2024-02-17 13:24:00 Patient came in with complaints of left lower leg pain since yesterday. He said he has h/o cellulitis on both legs. States he is on Eliquis for blood clot precaution. Denies chest pain nor SOB. ATOR Liset Broussard RN [facility] 2024-02-17 13:02:00 [facility] Emergency Department Note Patient Name: Neha Loyd IV Date of : 1970 53 year old male Treatment Room: [place] [address] Primary Care Physician: Jaylene Segura Patient Escorted by: Family [5] Mode of Arrival: Personal means [1] EMS Treatment Prior to ED Arrival: GIS APPLICATION DEVELOPER treatment: None Travel and Exposure Screening: Symptoms [...] 3 BASO x10 3 COMP. METABOLIC PANEL (16617) - Abnormal NA 137 135 - 145 [...] Procedures Cbc with Diff Comp. Metabolic Panel (25141) Orders Placed This Encounter Medications furosemide (LASIX) [...] signed by: David Bermudez MD 02/17/24 1508 [facility] EMERGENCY PHYSICIAN STAFF [facility] 2024-02-17 13:02:00 AdmissionCare Guideline: Cellulitis - OBS, [...] arranged) AdmissionCare documentation entered by: Sriram Hughes [facility], 28th edition, Copyright ? [address] [facility] [address] [facility] All Rights Reserved. [id number]:06:44-06:00 [facility] 2024-01-11 09:50:01 Images from the original note [...] Segura MD Last refill: 11/29/2023 Rx #: [id number]|1|0|1 Anti-coagulants Oczujg7901/10/2024 07:00 PM Protocol Details Cr in normal range and within 360 days RBC in normal range and within 360 days PLT in normal range and within 360 days HCT in normal range and within 360 days HGB in normal range and within 360 days Valid encounter within last 12 months To be filled at: [facility] #[id number] - [place], [place] - [address] [email or web address] [address] [employer] Recent Visits Date Type Provider Dept 08/24/23 [...] meeting all other requirements Marcela Amado MA [facility] 2023-09-08 07:38:43 Images from the original note [...] Segura MD Last refill: 08/05/2023 Rx #: [id number]|1|0|1 Anti-coagulants Xyhyjh3209/07/2023 06:44 PM Protocol Details Cr in normal range and within 360 days RBC in normal range and within 360 days PLT in normal range and within 360 days HCT in normal range and within 360 days HGB in normal range and within 360 days Valid encounter within last 12 months To be filled at: [facility] #[id number] - [place], [place] - [address] [email or web address] [address] CBC WBC (10*3/?L) Date Value 06/12/2021 10.73 [...] and meeting all other requirements Kezia Reyes [facility] 2023-09-06 08:33:47 Spoke to patient and advised him no providers are in today to prescribe pain meds. Advised to utilize Urgent Care. Kezia Ryees LVN 09/06/2023 8:34 AM Kezia Reyes Formerly [facility] 2023-09-03 15:52:39 Copied from [facility] #[id number]. Topic: Clinical - Medical Advice >> September 03, 2023 3:35 PM Patient Sexologist wrote: Neha Loyd IV is a 53 [...] need to come in. Pt will try uc. [facility] #[id number] - [place], [place] - [address] [employer] Mague Richardson [facility] 2023-09-03 12:41:49 Neha Loyd IV is a 53 year old male Pt called earlier this am, as an assessment call, but no one has returned his call. Thanks Irena Lozada [facility] 2023-09-03 09:14:09 Neha Loyd IV is a [...] asking for tramadol or any pain meds: [facility] #[id number] - [place], [place] - [address] [employer] Ramiro Mckinley [facility] 2023-08-24 16:50:29 Neha Loyd IV is a 53 year old male Pt was just seen and the prescription for his amlodipine was sent to the wrong pharmacy. Due to his insurance it needs to go to [facility] #[id number] - [place] [address] [facility] [employer] [facility] [address] [facility] [address] [place] [address] Nika Artis [facility] 2023-08-05 07:31:06 Last Refilled: ELIQUIS 5 mg tablet 60 tablet 0 06/02/2023 -- No Sig: TAKE 1 TABLET BY MOUTH IN THE MORNING AND EVENING TO PREVENT RECURRENCE OF A CLOT IN A DEEP VEIN Sent to pharmacy as: Eliquis 5 mg tablet (apixaban) Class: eRX Order: [id number] Date/Time Signed: 06/02/2023 11:51 E-Prescribing Status: Receipt confirmed by pharmacy (06/02/2023 11:51 AM MEDIATOR) Recent Visits Date Type Provider Dept 05/18/23 Office Visit Jaylene Segura MD Ang-Db [...] and meeting all other requirements Jasmyne Matias [facility] 2023-07-12 10:38:18 Spoke with [facility] informed her patient will need to be seen to get sleep pap orders Patient is currently admitted but will make appointment when released [facility] 2023-07-12 09:45:34 [facility] [phone] Pt hospitalized, healthcare coordinator is requesting an expedite on pt's CPAP orders, states pt reports already having completed the sleep study. Please F/u Nick Bauer [facility] 2023-04-13 08:03:39 Recent Visits Date Type Provider Dept 08/18/22 Office Visit Jaylene Segura MD Ang-Db [facility] 08/04/22 Office Visit Renee Michelle [...] pharmacy as: carvediloL 25 mg tablet (CORE[facility]) Mccarthy MA [facility] 2022-11-18 08:34:06 Formatting of this n ote [...] Segura MD Last refill: 10/16/2022 Rx #: [id number]|[id number] Anti-coagulants Failed 11/17/2022 06:44 PM Protocol Details [...] last 12 months To be filled at: [facility] #[id number] - [place], [place] - [address] [email or web address] [address] [employer] Recent Visits Date Type Provider Dept 08/18/22 [...] meeting all other requirements Kezia Reyes LVN [facility]
--- NOTE | 2024-09-01 12:43 | RAD REPORT ---
EXAMINATION: US RIGHT UPPER EXTREMITY VENOUS DOPPLER CLINICAL INDICATION: SWELLING RIGHT TECHNIQUE: Complete bilateral duplex sonography of the RIGHT upper extremity veins was performed. The examination included compression for vein patency, color Doppler imaging and flow augmentation in response to distal compression of the internal jugular, brachiocephalic, subclavian, axillary, brachi al, radial, ulnar, cephalic and basilic veins. COMPARISON: No prior exam. FINDINGS: Duplex sonography testing of the veins of the RIGHT upper extremity was performed. Color flow imaging shows all veins to be compressible with [id number] color filling. Pulsatile and phasic flow is present within all upper extremity deep and superficial veins examined. IMPRESSION: There is no deep vein or superficial vein thrombosis.
--- NOTE | 2024-09-01 12:56 | ER ---
Nurse's Notes [facility] Name: Devin Loyd IV Age: 54 yrs Sex: Male : 1970 Arrival Date: 09/01/2024 Time: 11:44 Bed 20 Private MD: Diagnosis: Cellulitis of right upper limb Presentation: 09/01 12:00 Chief complaint: Patient states: WOKE UP YESTERDAY MORNING WITH PAIN AND SWELLING TO dd2 THE RIGHT HAND. REPORTS DIFFICULTY CLOSING FIST. REPORTS HX OF GOUT. Coronavirus screen: At this time, the client does not indicate any symptoms associated with coronavirus-19. Ebola Screen: No symptoms or risks identified at this time. Initial Sepsis Screen: Does the patient meet any 2 criteria? No. Patient's initial sepsis screen is negative. Does the patient have a suspected source of infection? No. Patient's initial sepsis screen is negative. Risk Assessment: Do you want to hurt yourself or someone else? Patient reports no desire to harm self or others. Onset of symptoms was August 31, 2024. 12:00 Method Of Arrival: Ambulatory dd2 12:00 Acuity: FREDI 3 dd2 Triage Assessment: 12:03 General: Appears in no apparent distress. comfortable, Behavior is calm, cooperative, dd2 appropriate for age. Pain: Complains of pain in right hand Pain does not radiate. Pain currently is 4 out of 10 on a pain scale. at worst was 8 out of 10 on a pain scale. Historical: - Allergies: 12:03 No Known Allergies; dd2 - Home Meds: 12:03 carvedilol 25 mg Oral tablet 1 tab [Active]; dd2 - PMHx: 12:03 Cellulitis; Congestive heart failure; Hypertensive disorder; Kidney stones; Gout; BLOOD dd2 CLOT; LYMPHEDEMA; - PSHx: 12:03 None; dd2 - Immunization history:: Adult Immunizations up to date. - Infectious Disease History:: Denies. - Social history:: Smoking status: Patient/guardian denies using tobacco, the patient reports quitting approximately 5 years ago. Screenin:44 [facility] ED Fall Risk Assessment (Adult) History of falling in the last 3 months, me1 including since admission No falls in past 3 months (0 pts) Confusion or Disorientation No (0 pts) Intoxicated or Sedated No (0 pts) Impaired Gait No (0 pts) Mobility Assist Device Used No (0 pt) Altered Elimination No (0 pt) Score/Fall Risk Level 0 - 2 = Low Risk Maintained a safe environment, Provided non-skid footwear, Hourly rounding (assess needs \T\ fall precautionary measures) done. Abuse screen: Denies threats or abuse. Nutritional screening: No deficits noted. Tuberculosis screening: No symptoms or risk factors identified. Assessment: 12:44 General: Appears uncomfortable, well groomed, well developed, well nourished, Behavior me1 is calm, cooperative, appropriate for age, Reports WOKE UP YESTERDAY MORNING WITH PAIN AND SWELLING TO THE RIGHT HAND. REPORTS DIFFICULTY CLOSING FIST. REPORTS HX OF GOUT. Pain: Complains of pain in right hand Pain does not radiate. Pain currently is 4 out of 10 on a pain scale. Quality of pain is described as aching, Pain began 1 day ago. Is continuous. Neuro: Level of Consciousness is awake, alert, obeys commands, Oriented to person, place, time, situation, Appropriate for age. Cardiovascular: Patient's skin is warm and dry. Respiratory: Airway is patent Respiratory effort is even, unlabored, Respiratory pattern is regular, symmetrical. GI: No signs and/or symptoms were reported involving the gastrointestinal system. : No signs and/or symptoms were reported regarding the genitourinary system. EENT: No signs and/or symptoms were reported regarding the EENT system. Derm: Skin is intact, is healthy with good turgor, Skin is pink, warm \T\ dry. Musculoskeletal: Swelling present in right hand Reports pain in right hand. Vital Signs: 12:00 BP 160 / 105; Pulse 76; Resp 16; Temp 98.2; Pulse Ox 99% on R/A; Weight 217.72 kg; dd2 Height 6 ft. 4 in. ; Pain 5/10; 12:58 BP 175 / 93; Pulse 62; Resp 18; Temp 98.1; Pulse Ox 92% on R/A; me1 12:00 Body Mass Index 58.43 (217.72 kg, 193.04 cm) dd2 12:00 Pain Scale: Adult dd2 ED Course: 11:47 Patient arrived in ED. im 11:51 Rei Davila DO is Attending Physician. ms3 12:03 Triage completed. dd2 12:03 Arm band placed on right wrist. dd2 12:40 UPPER EXTREMITY VENOUS UNILATE In Process Unspecified. EDMS 12:43 Val Saini, RN is Primary Nurse. me1 12:44 Patient has correct armband on for positive identification. Bed in low position. Call me1 light in reach. Side rails up X2. Provided Education on: POC. Verbalized understanding.. Client placed on continuous cardiac and pulse oximetry monitoring. NIBP monitoring applied. Pulse ox on. NIBP on. 12:44 No provider procedures requiring assistance completed. me1 12:55 Neymar Dubon DO is Referral Physician. ms3 13:02 Patient did not have IV access during this emergency room visit. me1 Administered Medications: No medications were administered Medication: :44 VIS not applicable for this client. me1 Outcome: :55 Discharge ordered by MD. ms3 13:02 Discharged to home ambulatory, me1 13:02 Condition: stable 13:02 Discharge instructions given to patient, Instructed on discharge instructions, follow up and referral plans. medication usage, Demonstrated understanding of instructions, follow-up care, medications, Prescriptions given X 1, 13:02 Patient left the ED. me1 Signatures: Dispatcher [employer] EDMS Rei Davila DO DO ms3 Fay Doll Val Saini, RN RN me1 DARLING FLOR RN RN dd2 Corrections: (The following items were deleted from the chart) 12:44 12:00 Chief complaint: Patient states: WOKE UP YESTERDAY MORNING WITH PAIN AND SWELLING me1 TO THE RIGHT HAND. REPORTS DIFFICULTY CLOSING FIST. REPORTS HX OF GOUT. dd2
--- NOTE | 2024-09-01 12:56 | EDPHYS ---
Physician Documentation [facility] Name: Devin Loyd IV Age: 54 yrs Sex: Male : 1970 Arrival Date: 09/01/2024 Time: 11:44 Bed 20 Private MD: ED Physician Rei Davila HPI: 09/01 12:06 This 54 yrs old Male presents to ER via Ambulatory with complaints of Hand Pain - ms3 right, Hand Swelling - right. 12:06 54-year-old male with past medical history of cellulitis, congestive heart prior, ms3 hypertension, kidney stones, gout, DVT, lymphedema presents to the emergency department for right hand swelling that began yesterday. Patient states his symptoms have improved since yesterday. He denies any alleviating or inciting factors. Patient states his discomfort is currently a 4/10. Historical: - Allergies: 12:03 No Known Allergies; dd2 - Home Meds: 12:03 carvedilol 25 mg Oral tablet 1 tab [Active]; dd2 - PMHx: 12:03 Cellulitis; Congestive heart failure; Hypertensive disorder; Kidney stones; Gout; BLOOD dd2 CLOT; LYMPHEDEMA; - PSHx: 12:03 None; dd2 - Immunization history:: Adult Immunizations up to date. - Infectious Disease History:: Denies. - Social history:: Smoking status: Patient/guardian denies using tobacco, the patient reports quitting approximately 5 years ago. ROS: 12:06 Constitutional: Negative for fever, and chills. Cardiovascular: Negative for chest ms3 pain, and palpitations. Respiratory: Negative for shortness of breath, cough, wheezing, and pleuritic chest pain, Abdomen/GI: Negative for abdominal pain, nausea, vomiting, diarrhea, and constipation, 12:06 MS/extremity: Positive for swelling, of the right hand, 12:06 Skin: Positive for erythema, of the right hand, Exam: 12:06 Constitutional: This is a well developed, well nourished patient who is awake, alert, ms3 and in no acute distress. Cardiovascular: Regular rate and rhythm with a normal S1 and S2. No gallops, murmurs, or rubs. Normal PMI, no JVD. No pulse deficits. Respiratory: Lungs have equal breath sounds bilaterally, clear to auscultation and percussion. No rales, rhonchi or wheezes noted. No increased work of breathing, no retractions or nasal flaring. Abdomen/GI: Soft, non-tender, with normal bowel sounds. No distension or tympany. No guarding or rebound. No evidence of tenderness throughout. 12:06 Skin: Appearance: swelling, that are mild, Mild erythema of right hand with tenderness of between the 3rd and 4th digit . Vital Signs: 12:00 BP 160 / 105; Pulse 76; Resp 16; Temp 98.2; Pulse Ox 99% on R/A; Weight 217.72 kg; dd2 Height 6 ft. 4 in. ; Pain 5/10; 12:58 BP 175 / 93; Pulse 62; Resp 18; Temp 98.1; Pulse Ox 92% on R/A; me1 12:00 Body Mass Index 58.43 (217.72 kg, 193.04 cm) dd2 12:00 Pain Scale: Adult dd2 MDM: 12:05 Medical Screening Exam initiated ms3 12:06 Differential diagnosis: DVT Rayray cellulitis versus allergic reaction. ms3 14:08 Data reviewed: vital signs, nurses notes, radiologic studies, and as a result, I will ms3 discharge patient. Care significantly affected by the following chronic conditions: Hypertension, Congestive Heart Failure. Counseling: I had a detailed discussion with the patient and/or guardian regarding the historical points, exam findings, and any diagnostic results supporting the discharge/admit diagnosis, radiology results, the need for outpatient follow up, to return to the emergency department if symptoms worsen or persist or if there are any questions or concerns that arise at home. Special discussion: I discussed with the patient/guardian in detail that at this point there is no indication for admission to the hospital. It is understood, however, that if the symptoms persist or worsen the patient needs to return immediately for re-evaluation. ED course: Discussed ultrasound results with patient. Patient to follow-up with primary care physician in 2 to 3 days. All questions were answered. Return precautions discussed include worsening symptoms, or any other concerns. On reevaluation patient's hand without signs of flexor tenosynovitis or compartment syndrome.. 09/01 12:16 Order name: UPPER EXTREMITY VENOUS UNILATE; Complete Time: 12:53 EDMS Administered Medications: No medications were administered Disposition Summary: 05/23/25 12:55 Discharge Ordered Notes: Location: Home ms3 Condition: Stable ms3 Diagnosis - Cellulitis of right upper limb ms3 Followup: ms3 - With: Neymar Dubon DO - When: 2 - 3 days - Reason: Recheck today's complaints Discharge Instructions: - Discharge Summary Sheet ms3 - Cellulitis, Adult ms3 Forms: - Medication Reconciliation Form ms3 - Antibiotic Education ms3 - Prescription Opioid Use ms3 - Patient Portal Instructions ms3 - Leadership Thank You Letter ms3 Prescriptions: - Doxycycline Hyclate 100 mg Oral Tablet - take 1 tablet ORAL route every 12 hours; 20 tablet; Refills: 0, Product ms3 Selection Permitted Signatures: Dispatcher [employer] EDMS Rei Davila DO DO ms3 DARLING FLOR RN RN dd2 Corrections: (The following items were deleted from the chart) 12:16 12:06 Extremity Venous Uni [email or web address] ordered. EDMS EDMS
[2024-09-01 13:08] VITALS: BP 175/93; TEMP 98.1; O2SAT 92
== END 2024-09-01 13:02 | disposition home or self-care (01) ==
LOC: ER 11:44
DX: L03.113 Cellulitis of right upper limb (principal); I50.9 Heart failure, unspecified; Z86.718 Personal history of other venous thrombosis and embolism
CPT/HCPCS: 93971; 99283